=== PATIENT | female | born 1955 | race Caucasian/White ===

== ENCOUNTER 2016-10-30 07:37 | Emergency (ER) | payer OTHER ==
[~2016-10-30] VITALS: Ht 157.5 cm; Wt 93.0 kg
[~2016-10-30 07:37] MED LIST: CLX40 PO; IBUP-1050 PO; POTA1080 PO
[2016-10-30 07:39] VITALS: BP 139/73; PULSE 97; TEMP 37; O2SAT 94; Ht 157.5 cm; Wt 93.0 kg
[2016-10-30] MEDS ORDERED: PROPARACAINE HCL 0.5% OP SOLN 15 ML BTL ONE (07:45)
[2016-10-30] MEDS ORDERED: PRT/40 PO (07:47)
[2016-10-30] MEDS ORDERED: CITA40TA4 PO (07:47)
[2016-10-30] MEDS ORDERED: POTA1080 PO (07:47)
--- NOTE | 2016-10-30 17:01 | EMERGENCY ROOM VISIT NOTE ---
ED Visit Note First contact with patient: 07:44 Chief Complaint: Right eye pain. History of Present Illness: Ms. Barnes is a 60-year-old white female who ambulates into the ED complaining of right eye pain. 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 She reports immediately after the injury she did flush it at denies station. Currently she is complaining of a mild scratchiness sensation to the right eye. Her discomfort is nonradiating. She does not rate her discomfort. She has not identified any aggravating or alleviating factors related to her scratchiness sensation. He has not taken any medications for her discomfort prior to arrival at the hospital. She denies any associated visual changes, light sensitivity, tearing. Review of Systems: As noted above in history of present illness. Past Medical History: Kidney stones, status post stone removal. Current Medications: Potassium citrate, Pantoprazole, citalopram. Allergies to Medications: Amoxicillin. Social History: Patient is currently employed; she feels safe in her home environment; she admits to tobacco use and denies alcohol use. Tetanus Immunization Status: Patient reports up-to-date. Physical Examination: Vital Signs: Date Time Temp Pulse Resp B/P Pulse Ox O2 Delivery O2 Flow Rate FiO2 10/30/16 07:39 37.0 97 16 139/73 94 Room Air GENERAL: 60-year-old female in no acute distress, nontoxic-appearing, afebrile and hemodynamically stable. NEUROLOGICAL: Awake, alert and oriented to person, place and time. Answering questions appropriately and following commands. SKIN: Warm, dry and pink. No soft tissue eruptions or trauma noted. HEENT: Atraumatic and normocephalic. EYES: PERRL. Sclera white and conjunctiva pink. No foreign bodies noted under the eyelids are embedded in the cornea. Anterior chamber is clear. No light sensitivity. No tearing. Anterior chamber is clear. On slit lamp examination with staining shows no uptake of the dye. Visual Acuity: Right 20/20, Left 20/ 25. ED Course: Patient is assessed as noted above. Alcaine was used to anesthetize the eye for examination. Patient was educated about tonight's findings and instructed on her treatment plan; she verbalizes understanding and agreement with this plan. Clinical Impression: Foreign body sensations to the right eye. Work related injury. Disposition: Patient discharged back to work; prior to departure she was reassessed and subjectively reported she was pain/symptom-free. Plan: Patient was encouraged to alternate 600 mg of ibuprofen and 650 mg of acetaminophen as needed for pain every 6 hours or every 3 hours. Patient was encouraged to follow-up with employee health or return to the ED for uncontrolled pain, visual changes or any new/concerning symptoms.
== END 2016-10-30 08:06 | disposition home or self-care (01) ==
LOC: C.EDB 07:39 → C.EDA 08:06
DX: H57.11 Ocular pain, right eye (principal); Z79.899 Other long term (current) drug therapy

== ENCOUNTER 2016-12-14 05:39 | Emergency (ER) | payer OTHER ==
[~2016-12-14 05:39] MED LIST changes: +CITA40TA4 PO; -CLX40 PO; -IBUP-1050 PO; +PANT40TA2 PO
[2016-12-14 05:41] VITALS: TEMP 36.4; Ht 157.5 cm
[2016-12-14] MEDS ORDERED: CYM/30 PO (05:57)
[2016-12-14] MEDS ORDERED: NAPR-1169 PO (05:58)
--- NOTE | 2016-12-14 07:05 | EMERGENCY ROOM VISIT NOTE ---
ED Visit Note First contact with patient: 05:45 Chief Complaint: Pain in LEFT Leg History of Present Illness: Patient is a 61-year-old female who presents to the emergency Department by private vehicle for evaluation of pain to her LEFT leg. She reports that she has been having pain to the posterior aspect of the LEFT thigh. The past 1.5 weeks. She did see her primary care provider who diagnosed her with muscular pain. She was placed on naproxen. She was doing well and yesterday reports that she had minimal discomfort. Today, she woke with pain to the posterior aspect of the thigh again. While getting into her car this morning she twisted and felt worsening pain to the posterior aspect of the knee and lower thigh. She denies any falls or trauma to the. She denies any numbness or tingling into the distal extremity. She is had no worsening low back pain or loss of control bowel/bladder or saddle anesthesia. The patient rates her current discomfort as a 3/10. She reports increasing pain with ambulation. She also complains of some stability issues. Patient denies any abdominal pain, hip pain, ankle pain, or foot pain. Patient denies a history of blood clots or bleeding disorders. There is been no recent long distance travel. She does smoke daily. Medications: Reviewed and discussed with the patient. Allergies: Amoxicillin PMH: No pertinent past medical history. SHx: Patient is a 61-year-old female who lives locally. ROS: All pertinent positive and negative review of systems are appropriately documented in the History of Present Illness. Physical Exam: VITAL SIGNS - Vital signs and nursing notes were reviewed. GENERAL - 61-year-old female appearing her stated age and in noticeable discomfort throughout the exam. MUSCULOSKELETAL - LEFT knee without erythema, edema, and ecchymosis. Moderate tenderness to palpation appreciated over the posterior aspect of the LEFT knee and lower thigh. +455 strength appreciated LEFT versus right secondary to patient discomfort. No posterior sag sign. RANGE OF MOTION: Greater than 110 Flexion with 0 Extension. PATELLAR APPREHENSION TEST: Unremarkable. VARUS/VALGUS STRESS: Unremarkable. ANTERIOR/POSTERIOR DRAWER TEST: Without guarding. Strong endpoint. Baldemar TEST: No catching, popping, or snapping. NEUROLOGIC/VASCULAR - Neurovascularly intact distally with +3/5 dorsalis pedis pulses palpated bilaterally. Normal sensation to light and sharp touch appreciated distally. IMAGING: Venous Doppler left leg LEFT VENOUS DOPP LOWER EXT UNILAT CLINICAL HISTORY: popliteal/thigh pain TECHNIQUE: Venous Doppler COMPARISON STUDY: None FINDINGS: Normal study IMPRESSION: Normal study LEFT KNEE 3 VIEWS CLINICAL HISTORY: Left posterior knee pain. FINDINGS: AP, crosstable lateral, and sunrise views of the left knee are compared to study dated 09/12/2006. The skeletal structures are well mineralized. No fracture is seen. There is mild degenerative narrowing at the patellofemoral articulation. There are small marginal osteophytes. No joint effusion is identified. The overlying soft tissues are within normal limits. IMPRESSION: Mild arthritic change as above. No acute bony abnormality is seen in the left knee. ED Course: Patient was seen and evaluated by myself. Patient declines anything narcotic for pain in the emergency department. X-ray of the affected knee and ultrasound of the LEFT lower extremity were obtained. Imaging results above. Imaging results were reviewed with the patient who acknowledges understanding. Patient was provided a knee brace for comfort. She declines crutches or walker. She'll follow-up with orthopedic surgery from today's visit. She will return for any changing or worsening symptoms. Patient discharged home in good condition. In the evaluation and treatment of this patient, the following differential diagnoses were considered: Patellar Fracture, Tibial Plateau Fracture, Distal Femur Fracture, ACL Injury, PCL Injury, Collateral Ligament Injury, Pes Anserine Bursitis, Maisonneuve Fracture. Impression: LEFT Knee Sprain/Strain Discharge Instructions: You have been treated in the Emergency Department for Knee Sprain/Strain. You have been prescribed [place] to be used for pain control. This is a narcotic medication. You cannot drive or consume alcohol while on this medicine. This medicine should only be used for pain that cannot be controlled with over-the- counter pain medicines. For pain control, you can use the following fbmj-qmi-iqjljnf medicines (if >12 yo): - Regular strength (325mg/tab) Tylenol (acetaminophen) 2 tabs every 4-6 hours as needed. Do not exceed 12 tablets in a 24 hour period. Avoid taking more than 4 grams (4000 mg) of Tylenol per day. This includes any other sources of acetaminophen you may take on a regular basis. - Regular strength (200 mg/tab) Advil (ibuprofen) 1-2 tabs every 4-6 hours as needed. Do not exceed a dose of 3200 mg per day. If this is a recent injury (<24 hrs), ice can be applied to the area of pain for the first 3 days to help decrease pain and inflammation. Ice massages can be performed by freezing water in a paper cup, peeling back the cup to expose the ice and then massaging over the affected area. You have been provided the number for an Orthopaedic Surgeon. You should call this number as soon as possible to establish a follow-up visit from today's Emergency Department visit. Keep the knee brace in place until cleared by Orthopedics. Return to the Emergency Department if your current symptoms worsen despite treatment course outlined above. Current/Historical Medications Scheduled Duloxetine HCl (Cymbalta), 30 MG PO DAILY Naproxen (Naprosyn), 500 MG PO BID Pantoprazole (Pantoprazole Sodium), 40 MG PO DAILY Potassium Citrate (Alkalinizer (Potassium Citrate ER), 1,080 MG PO BID Scheduled PRN Hydrocodone/Acetaminophen 5MG/325MG ([place] 5MG/325MG), 1-2 TABLET PO Q4H PRN for Pain Allergies Coded Allergies: Amoxicillin (Verified Allergy, Unknown, vomiting, 12/14/16) Vital Signs Date Time Temp Pulse Resp B/P Pulse Ox O2 Delivery O2 Flow Rate FiO2 12/14/16 07:53 91 18 172/89 94 Room Air 12/14/16 05:41 36.4 91 18 155/79 98 Room Air Departure Information Impression Primary Impression: Knee sprain Dispostion Home / Self-Care Condition GOOD Prescriptions Hydrocodone/Acetaminophen 5MG/325MG (Gast[place] 5MG/325MG) Tab 1-2 TABLET PO Q4H Y for Pain, #14 TAB For Initial Treatment Prov: Ozzy Kamara PA-C 12/14/16 Referrals Clare Sequeira D.OFelton (PCP) Joey Leger MD Patient Instructions ED Sprain Knee, My [facility] Additional Instructions You have been treated in the Emergency Department for Knee Sprain/Strain. You have been prescribed G[place] to be used for pain control. This is a narcotic medication. You cannot drive or consume alcohol while on this medicine. This medicine should only be used for pain that cannot be controlled with over-the- counter pain medicines. For pain control, you can use the following yaag-aqf-dnggjse medicines (if >12 yo): - Regular strength (325mg/tab) Tylenol (acetaminophen) 2 tabs every 4-6 hours as needed. Do not exceed 12 tablets in a 24 hour period. Avoid taking more than 4 grams (4000 mg) of Tylenol per day. This includes any other sources of acetaminophen you may take on a regular basis. - Regular strength (200 mg/tab) Advil (ibuprofen) 1-2 tabs every 4-6 hours as needed. Do not exceed a dose of 3200 mg per day. If this is a recent injury (<24 hrs), ice can be applied to the area of pain for the first 3 days to help decrease pain and inflammation. Ice massages can be performed by freezing water in a paper cup, peeling back the cup to expose the ice and then massaging over the affected area. You have been provided the number for an Orthopaedic Surgeon. You should call this number as soon as possible to establish a follow-up visit from today's Emergency Department visit. Keep the knee brace in place until cleared by Orthopedics. Return to the Emergency Department if your current symptoms worsen despite treatment course outlined above. Problem Qualifiers Primary Impression: Knee sprain Encounter type: initial encounter Involved ligament of knee: unspecified ligament Laterality: left Qualified Codes: S83.92XA - Sprain of unspecified site of left knee, initial encounter
--- NOTE | 2016-12-14 07:30 | DIAGNOSTIC IMAGING REPORT ---
Venous Doppler left leg LEFT VENOUS DOPP LOWER EXT UNILAT CLINICAL HISTORY: popliteal/thigh pain TECHNIQUE: Venous Doppler COMPARISON STUDY: None FINDINGS: Normal study IMPRESSION: Normal study Electronically signed by: Kai Keller M.D. 12/14/2016 7:28 AM Dictated Date/Time: 12/14/2016 7:27 AM
[2016-12-14 07:53] VITALS: BP 172/89; PULSE 91; O2SAT 94
--- NOTE | 2016-12-14 07:54 | DIAGNOSTIC IMAGING REPORT ---
LEFT KNEE 3 VIEWS CLINICAL HISTORY: Left posterior knee pain. FINDINGS: AP, crosstable lateral, and sunrise views of the left knee are compared to study dated 09/12/2006. The skeletal structures are well mineralized. No fracture is seen. There is mild degenerative narrowing at the patellofemoral articulation. There are small marginal osteophytes. No joint effusion is identified. The overlying soft tissues are within normal limits. IMPRESSION: Mild arthritic change as above. No acute bony abnormality is seen in the left knee. Electronically signed by: Masood Kirk M.D. 12/14/2016 7:51 AM Dictated Date/Time: 12/14/2016 7:50 AM
[2016-12-14] MEDS ORDERED: HYDR-5688 PO (07:55)
== END 2016-12-14 08:21 | disposition home or self-care (01) ==
LOC: C.EDB 05:39
DX: S83.92XA Sprain of unspecified site of left knee, initial encounter (principal); X58.XXXA Exposure to other specified factors, initial encounter; Z79.899 Other long term (current) drug therapy; Z88.1 Allergy status to other antibiotic agents

== ENCOUNTER 2017-03-02 12:40 | Emergency (ER) | payer OTHER ==
[~2017-03-02] VITALS: Ht 157.5 cm; Wt 92.8 kg
[~2017-03-02 12:40] MED LIST changes: -CITA40TA4 PO; +CYM/30 PO; +HYDR-5688 PO; +NAPR-1169 PO; -PANT40TA2 PO; +PRT/40 PO
[2017-03-02 12:48] VITALS: TEMP 36.6; Ht 157.5 cm; Wt 92.8 kg
[2017-03-02 13:38] LABS: PARTIAL THROMBOPLASTIN RATIO 1.1; PROTHROMBIN TIME (PATIENT) 10.3 SECONDS (9.0-12.0)
--- NOTE | 2017-03-02 14:05 | DIAGNOSTIC IMAGING REPORT ---
ULTRASOUND LEFT VENOUS DOPP LOWER EXT UNILAT CLINICAL HISTORY: Left leg swelling COMPARISON STUDY: 12/14/2016 FINDINGS: Real-time and color flow Doppler imaging were performed. Flow was seen within the femoral, popliteal and calf veins with no intraluminal thrombus demonstrated. The saphenous vein is patent. IMPRESSION: No evidence of left lower extremity DVT. Electronically signed by: Devin Adamson M.D. 03/02/2017 2:04 PM Dictated Date/Time: 03/02/2017 2:03 PM
--- NOTE | 2017-03-02 14:47 | DIAGNOSTIC IMAGING REPORT ---
CHEST 2 VIEWS ROUTINE HISTORY:61 yearsFemaleperipheral edema COMPARISON: CTA of the chest 03/15/2014, chest radiograph 03/14/2014. TECHNIQUE: Frontal and lateral views of the chest. FINDINGS: Cardiomediastinal and hilar silhouettes are within normal limits. There is atherosclerosis of the aorta. No pneumothorax, pleural effusion, focal airspace consolidation or overt pulmonary edema. Subcortical cystic changes are seen within the left humeral head. Bones appear to be grossly intact. IMPRESSION: No acute cardiopulmonary process. No overt pulmonary edema. The above report was generated using voice recognition software. It may contain grammatical, syntax or spelling errors. Electronically signed by: Daren Gonzalez 03/02/2017 2:46 PM Dictated Date/Time: 03/02/2017 2:44 PM
--- NOTE | 2017-03-02 14:57 | EMERGENCY ROOM VISIT NOTE ---
History First contact with patient: 12:56 Chief Complaint: SWELLING TO EXTREMITY Stated Complaint: SWELLING IN LEFT ANKLE History of Present Illness The patient is a 61 year old female who presents to the Emergency Room with complaints of left lower leg swelling. The patient states on Sunday when she came home from work she noticed that her left ankle was swollen. Since that time she has noticed swelling in the entire left lower leg. She does admit that she is wearing new socks which are anklets and are very constricting. The patient has not noticed any swelling of the right lower leg. The patient went to urgent care today and they told her to come to the emergency room to evaluate for a blood clot. The patient denies any history of blood clots or any family history of clotting disorders. The patient denies any recent travel. Patient does admit to tobacco use. The patient denies hormone use. The patient denies any chest pain or shortness of breath. Review of Systems 10 system review was performed and was negative unless stated otherwise history of present illness. Social History Smoking Status: Current Every Day Smoker Alcohol Use: none Drug Use: none Marital Status: single Housing Status: lives alone Occupation Status: employed Current/Historical Medications Scheduled Duloxetine HCl (Cymbalta), 30 MG PO HS Naproxen (Naprosyn), 500 MG PO BID Pantoprazole (Pantoprazole Sodium), 40 MG PO QAM Potassium Citrate (Alkalinizer (Potassium Citrate ER), 1,080 MG PO BID Scheduled PRN Hydrocodone/Acetaminophen 5MG/325MG ([place] 5MG/325MG), 1-2 TABLET PO Q4H PRN for Pain Allergies Coded Allergies: Amoxicillin (Verified Allergy, Unknown, vomiting, 03/02/17) Physical Exam Vital Signs Date Time Temp Pulse Resp B/P (MAP) Pulse Ox O2 Delivery O2 Flow Rate FiO2 03/02/17 14:33 87 20 176/84 98 186/85 03/02/17 12:48 36.6 98 16 167/94 96 Room Air Physical Exam GENERAL: 61-year-old white female appears in no acute distress. MENTAL Status: Alert and oriented 3. NECK: Supple, no lymphadenopathy noted. No carotid bruits noted. LUNGS: Clear auscultation without wheezes rales or rhonchi. CARDIAC: Regular rate and rhythm without murmur. Pulses is full and equal throughout. LOWER EXTREMITIES: Left lower extremity with 2+ pitting edema just above the ankle to mid calf. No erythema. Left foot without any pitting edema. Right lower extremity with 1+ pitting edema from the ankle to mid calf. Negative Homans bilaterally. Medical Decision & Procedures ER Provider Diagnostic Interpretation: ULTRASOUND LEFT VENOUS DOPP LOWER EXT UNILAT CLINICAL HISTORY: Left leg swelling COMPARISON STUDY: 12/14/2016 FINDINGS: Real-time and color flow Doppler imaging were performed. Flow was seen within the femoral, popliteal and calf veins with no intraluminal thrombus demonstrated. The saphenous vein is patent. IMPRESSION: No evidence of left lower extremity DVT. Electronically signed by: Devin Adamson M.D. 03/02/2017 2:04 PM Dictated Date/Time: 03/02/2017 2:03 PM CHEST 2 VIEWS ROUTINE HISTORY:61 yearsFemaleperipheral edema COMPARISON: CTA of the chest 03/15/2014, chest radiograph 03/14/2014. TECHNIQUE: Frontal and lateral views of the chest. FINDINGS: Cardiomediastinal and hilar silhouettes are within normal limits. There is atherosclerosis of the aorta. No pneumothorax, pleural effusion, focal airspace consolidation or overt pulmonary edema. Subcortical cystic changes are seen within the left humeral head. Bones appear to be grossly intact. IMPRESSION: No acute cardiopulmonary process. No overt pulmonary edema. The above report was generated using voice recognition software. It may contain grammatical, syntax or spelling errors. Electronically signed by: Daren Gonzalez Laboratory Results Test 03/02/17 13:16 Prothrombin Time 10.3 SECONDS (9.0-12.0) Prothromb Time International Ratio 1.0 (0.9-1.1) Activated Partial Thromboplast Time 29.4 SECONDS (21.0-31.0) Partial Thromboplastin Ratio 1.1 ED Course The patient was evaluated. Coags were normal. Venous Doppler of the left lower extremity revealed no evidence of DVT by radiologist's interpretation. Chest x-ray per my interpretation and radiologists interpretation revealed no acute infiltrate, congestive heart failure or pulmonary edema. The patient was informed of all findings. The patient was discharged home in stable condition. Medical Decision Differential diagnosis include congestive heart failure, peripheral edema, DVT, superficial phlebitis, cellulitis Impression Primary Impression: Peripheral edema Departure Information Dispostion Home / Self-Care Condition GOOD Referrals Newhouser, Clare M., D.O. (PCP) Forms HOME CARE DOCUMENTATION FORM, IMPORTANT VISIT INFORMATION, WORK / SCHOOL INSTRUCTIONS Patient Instructions ED Leg Swelling Bilateral, My [facility] Additional Instructions Keep legs elevated whenever possible. Off work for 2 days. Limit salt intake. Follow-up with your family doctor early next week for reevaluation and possible diuretic therapy. Work Instructions Return To Work: 3 days
[2017-03-02 15:11] VITALS: BP 171/81; PULSE 90; O2SAT 94
== END 2017-03-02 15:13 | disposition home or self-care (01) ==
LOC: C.EDB 12:41 → C.EDD 15:13
DX: R60.0 Localized edema (principal); F17.210 Nicotine dependence, cigarettes, uncomplicated; Z79.899 Other long term (current) drug therapy

== ENCOUNTER → 2017-09-20 | Outpatient (CLI) | payer OTHER ==
[~2017-09-20] MED LIST changes: -HYDR-5688 PO; +PANT40TA2 PO; -PRT/40 PO
== END | disposition home or self-care (01) ==
LOC: C.RDSM 10:15
PROVIDERS: ATTEND Family Medicine Sports Medicine
DX: M79.606 Pain in leg, unspecified (principal)

== ENCOUNTER → 2017-10-12 | Outpatient (CLI) | payer OTHER ==
--- NOTE | 2017-10-12 15:48 | DIAGNOSTIC IMAGING REPORT ---
R KNEE 4 OR MORE CLINICAL HISTORY: 61 years-old Female presenting with CHRONIC RIGHT KNEE PAIN. TECHNIQUE: Bilateral frontal, sunrise, tunnel, and lateral views of the knees were obtained. COMPARISON: Left knee radiographs from 12/14/2016. FINDINGS: Right knee: Joint space preserved. No patellar subluxation. No abnormality of the intercondylar region. No advanced degenerative change apart from minimal osteophytosis at the patellofemoral compartment. Trace knee joint effusion. No acute fracture or malalignment. Left knee: Joint space preserved. No patellar subluxation. No abnormality of the intercondylar region. No advanced degenerative change apart from minimal osteophytosis at the patellofemoral compartment. Trace knee joint effusion. No acute fracture or malalignment. IMPRESSION: Mild bilateral degenerative changes in the patellofemoral compartments. Electronically signed by: Saúl Fox M.D. 10/12/2017 3:46 PM Dictated Date/Time: 10/12/2017 3:44 PM
== END | disposition home or self-care (01) ==
LOC: C.RDSM 15:15
PROVIDERS: ATTEND Physician Assistant
DX: M25.561 Pain in right knee (principal)

== ENCOUNTER 2024-07-20 13:28 | Inpatient (IN) ==
[~2024-07-20 13:28] MED LIST changes: -CYM/30 PO; -NAPR-1169 PO; -PANT40TA2 PO; -POTA1080 PO; +SODIUM BICARBONATE 8.4% 150 MEQ in DEXTROSE 5% 1,000 ML IV SCH
[2024-07-20] MEDS: ONDANSETRON INJ 2 MG/ML 2 ML VIAL ONE (13:45)
[2024-07-20] MEDS ORDERED: SODIUM CHLORIDE 0.9% 100 ML IV PRN ×2 (13:59→19:13)
[2024-07-20] MEDS ORDERED: SODIUM CHLORIDE 0.9% 50 ML IV PRN ×2 (13:59→19:13)
[2024-07-20] MEDS: SODIUM CHLORIDE 0.9% 1,000 ML IV ONE ×4 (14:00→19:34)
[2024-07-20 14:02] LABS: Basophils # (auto) 0.03 K/uL (0.00-0.20); Basophils % (auto) 0.2 %; Hematocrit (blood only) 22.5 % (37.0-47.0); Hemoglobin 7.7 g/dl (12.0-16.0); Immature Granulocytes % (auto) 0.7 %; Lymphocytes # (auto) 1.18 K/uL (1.20-3.40); Lymphocytes % (auto) 8.4 %; Mean Corpuscular Hemoglobin 29.6 pg (25.0-34.0); Mean Corpuscular Hgb Conc 34.2 g/dL (32.0-36.0); Mean Corpuscular Volume 86.5 fL (80.0-100.0); Mean Platelet Volume 11.8 fL (9.4-12.4); Monocytes # (auto) 0.47 K/uL (0.11-0.59); Monocytes % (auto) 3.3 %; Neutrophils # (auto) 12.35 K/uL (1.40-6.50); Neutrophils % (auto) 87.4 %; Nucleated RBC # (auto) 0.03 K/uL (0.00-0.12); Nucleated RBC % (auto) 0.2 %; Platelet Count 296 K/uL (130-400); RDW Coefficient of Variation 14.6 % (11.5-14.5); RDW Standard Deviation 45.9 fL (36.4-46.3); White Blood Count 14.13 K/ul (4.8-10.8)
--- NOTE | 2024-07-20 14:05 | XRay Report ---
EXAM: Radiograph of the Chest 1 View INDICATION: History GI bleeding. TECHNIQUE: Frontal view of the chest. COMPARISON: 06/19/2024 FINDINGS: Lungs and pleural spaces: No consolidation or pulmonary edema. No pleural effusion or pneumothorax. Heart: Shape and configuration within normal limits allowing for technique. Mediastinum: Normal contour. Bones/joints: Degenerative changes noted throughout the spine. No acute osseous abnormality seen. Soft tissues: No abnormality noted. No radiopaque foreign body noted. Vasculature: Stable mildly calcified ectatic aorta. Upper abdomen: No free intraperitoneal air noted subjacent to either diaphragm. IMPRESSION: No acute cardiopulmonary disease. ACT 112: Negative or not required by law. Electronically signed by Radha Osullivan 07-20-2024 2:04 PM
[2024-07-20 14:20] LABS: Echinocytes 1+; Polychromasia 1+
[2024-07-20 14:31] LABS: INR 1.1 (0.9-1.1); Partial Thromboplastin Ratio 0.9; Partial Thromboplastin Time 23 Seconds (21-31); Prothrombin Time 11.4 Seconds (9.0-12.0)
[2024-07-20] MEDS: PANTOprazole 80 MG in DEXTROSE 5% 100 ML IV ONE (14:32)
[2024-07-20 14:33] LABS: Albumin Globulin Ratio 1.1 (0.9-2); Albumin Level 3.6 gm/dl (3.4-5.0); BUN Creatinine Ratio 10.1 (10-20); Bilirubin,Total 0.3 mg/dl (0.2-1.0); Calcium 9.8 mg/dl (8.6-10.3); Creatinine Clr Calc Pharmacy 2.8 ml/min; Globulin 3.4 gm/dl (2.5-4.0); Troponin I High Sensitivity 338.1 pg/ml (0-14)
[2024-07-20] MEDS: FAMOTIDINE 20MG IV PUSH 20 MG/5 ML SYR IV STA (14:35)
[2024-07-20] MEDS: PANTOprazole 40 MG in DEXTROSE 5% MINI-B 100 ML IV SCH (15:04)
--- NOTE | 2024-07-20 15:04 | CT Scan Report ---
EXAM: CT Head Without Intravenous Contrast INDICATION: Acute renal failure. GI bleeding. Confusion. TECHNIQUE: Axial computed tomography images of the head/brain without intravenous contrast. Sagittal and/or coronal reformats are provided. Sagittal and coronal reformatted images were created and reviewed. This CT exam was performed using one or more of the following dose reduction techniques: automated exposure control, adjustment of the mA and/or kV according to patient size, and/or use of iterative reconstruction technique. COMPARISON: 06/19/2024 FINDINGS: Limitations: None. Brain and extra-axial spaces: There is age appropriate cortical atrophy and chronic ischemic periventricular white matter hypodensity. No acute infarct, hemorrhage or mass noted. Bones/joints: No acute changes. Soft tissues: No significant abnormality noted. Vasculature: No acute abnormality noted. Sinuses: No layering fluid in the visualized portions of the paranasal sinuses. Mastoid air cells: No mastoid effusion. Orbits: No significant abnormality noted. IMPRESSION: Cerebral atrophy. No acute changes. ACT 112: Negative or not required by law. Electronically signed by Radha Osullivan 07-20-2024 3:03 PM
--- NOTE | 2024-07-20 15:08 | CT Scan Report ---
EXAM: CT Abdomen and Pelvis Without Intravenous Contrast INDICATION: GI bleeding. Acute renal failure. TECHNIQUE: Axial computed tomography images of the abdomen and pelvis without intravenous contrast. Sagittal and coronal reformatted images were created and reviewed. This CT exam was performed using one or more of the following dose reduction techniques: automated exposure control, adjustment of the mA and/or kV according to patient size, and/or use of iterative reconstruction technique. COMPARISON: No relevant prior studies available. FINDINGS: Limitations: Streak artifact from the patient's arms noted over the renal shadows and portions of the stomach. Lung bases: No abnormality noted. Pleural space: No visualized pleural effusion or pneumothorax. Heart: There is dense mitral annular calcification. Mediastinum: No abnormality noted. ABDOMEN: Liver: Lack of intravenous contrast limits detection of some masses. No abnormality noted. Gallbladder and bile ducts: No calcified stones or surrounding fluid. Pancreas: No pancreatic mass, calcification, inflammation or ductal dilation noted. Spleen: No significant abnormality noted. Adrenals: No significant abnormality noted. Kidneys and ureters: There are multiple nonobstructing stones in each kidney measuring from punctate in size to up to 5 mm. No hydronephrosis or ureteral stone. Exophytic 5 mm dense nodule from the medial lower pole left kidney. Stomach and bowel: The stomach contains layering fluid. Artifact limits assessment of the posterior wall. No gross abnormality. Scattered stool throughout the colon without obstruction, inflammation or thickening. PELVIS: Appendix: Well seen and appears normal. Bladder: Collapsed bladder contains a catheter. No gross acute abnormality. Reproductive: 1 cm calcified uterine fibroid noted. ABDOMEN and PELVIS: Intraperitoneal space: No free air. No significant fluid collection. Bones/joints: Degenerative changes noted in the scoliotic spine. No acute osseous abnormality noted. Soft tissues: No significant abnormality noted. Vasculature: Atherosclerotic calcification of the aorta and branches. No aneurysm. Lymph nodes: No pathologically enlarged lymph nodes. IMPRESSION: 1. Allowing for artifact, no intestinal obstruction or inflammatory process noted. 2. Bilateral nonobstructing kidney stones. ACT 112: Negative or not required by law. Electronically signed by Radha Osullivan 07-20-2024 3:08 PM
--- NOTE | 2024-07-20 15:12 | Emergency Department Note ---
Impression & Plan Acute GI bleeding, Acute renal failure, Acute hypotension, Nausea & vomiting ED Provider Note NAME: ROXANA AGARWAL AGE: 68 SEX: Female INFORMANT: Patient and family, EMS ED PROVIDER(S): Jose Foster MD CHIEF COMPLAINT: GI bleed PLAN: Disposition: Admitted Outpatient prescription management: none Referral: None MEDICAL DECISION MAKING: Patient presented after I did give prehospital medical command for fluid resuscitation due to her hypotension. She was hypotensive on arrival. Hemoccult positive on rectal examination. Patient was mentating well. O2 saturations were adequate. Additional fluid resuscitation was done. Given the melanotic stool and Hemoccult positive rectal examination on i-STAT was performed and the patient was found to have a creatinine greater than 20 and hemoglobin of 7.1. Blood transfusion was ordered and the patient consented. Patient's blood pressure was slightly improved. She did increase into the 110's range. She was tachycardic. Patient was frequently reassessed and continuously monitored. A Ornelas catheter was placed. Patient did make about 40 mL of urine after the fluids. Blood was started. Patient CBC did show a mild leukocytosis. Hemoglobin was confirmed at 7 7. Patient also had elevated troponin. ECG was abnormal but patient had no chest pain. Given the acute bleeding and suspected dehydration blood was continued. Protonix and Pepcid was ordered. Patient had [address] imaging of the head and abdomen/pelvis did not reveal any acute findings. Admission was deemed appropriate. [facility] was discussed. Patient was evaluated in the ER by Dr. Salvador. Discussion with nephrology was requested. I did consult with Dr. Taylor. He recommended a bicarb drip and additional fluids. A repeat BMP was performed. Gastroenterology was also consulted. Patient was evaluated in the ER by Dr. Caicedo. Intensive care medicine was also consulted. Patient was evaluated in the ER by Dr. Luna. Patient had a slight drop in her blood pressure and he did order Levophed but this was not given as the patient's blood pressure did improve. Patient had some additional urine output. Initial concerns were for the GI bleed and her elevated BUN and acute renal failure. We discussed the possibility of transfer and critical care was waiting for repeat BUN/creatinine after fluid resuscitation. Dr. Taylor did recommend an additional liter bolus as well as desmopressin. I did order the additional fluid and internal medicine will do the desmopressin. Blood cultures and Rocephin were ordered as well. Repeat creatinine was improved at 15 and BUN did decrease to 162. Dr. Luna was comfortable with her going to the ICU for continued resuscitation. I refer you to the EMR for further details. Care/management discussed with: manager building. Internal medicine, critical care, gastroenterology, nephrology, lab Level of care consideration(s): After review of the information above and other included data, I feel the patient requires escalation of care to admission Triage Nursing notes: reviewed and agree them. Vital Signs: reviewed and remarkable for hypotension and tachycardia Additional History obtained from: patient sister did present to the emergency department and helped describe her decline over the recent weeks Chronic Medical/Social Conditions affecting care: CVA Prior/ Outside/ External records reviewed: Prior ED visit record reviewed from May 2024. Patient had stroke workup initiated however declined additional testing and left AMA. Differential Diagnosis: Diverticulosis, AVM, coagulopathy, colitis, inflammatory bowel disease, malignancy, Kamilah-Lou tear, esophagitis, peptic ulcer disease, variceal bleed, gastritis, dehydration, electrolyte abnormality, cardiac sources, as well as other pathologies. Diagnostics, independently interpreted by me: ECG: Twelve-lead ECG reveals a sinus tachycardia with premature supraventricular complexes at 110 bpm. Inferolateral T wave inversions. No ST elevation. Cardiac Monitoring:Cardiac monitoring ordered by me: The patient was placed on continuous cardiac monitoring and observed. It revealed a sinus tachycardia at 115 bpm. Medical decision rules: none Imaging studies: Chest x-ray. Findings: A chest x-ray was performed and revealed no pneumothorax, effusion, infiltrate, pulmonary edema, free air under the diaphragm, or wide mediastinum. Impression: No acute disease. Head CT: A noncontrast CT scan of the head was performed and was negative for tumor, fracture, intracranial hemorrhage, or other acute pathology. CT scan of the abdomen pelvis reveals no evidence of hydronephrosis. Nephrolithiasis noted. I refer you to the EMR for further details. HPI: 68 year old Female arrives for evaluation of GI bleed. Patient reports about 2 to 3 weeks of dark stool. She was recently started on Plavix after being diagnosed with a stroke on June 19. Patient was found to have this stroke on imaging in the emergency department and signed out AMA after admission was recommended. Patient did follow-up with her primary physician first week of June. She apparently had outpatient imaging performed which included a CTA as well as MRI. She was started on Plavix. Patient notes over the last week she has been having more issues with nausea, dark stool, occasional bloody stool, and abdominal cramping. Patient notes decreased p.o. intake over the last week but significantly so over the last few days. Family is present and states that they tried to take her to a follow-up visit this week for labs with primary care and she was too weak to get out of her sisters vehicle. Patient had increased weakness this morning and EMS was summoned. When they arrived her blood pressure was in the 80s. EMS did start a fluid bolus and supplemental oxygen. Patient's O2 saturation was adequate. She noted some improvement in her shortness of breath. Patient was still hypotensive on arrival. Pt denies LOC, headache, fevers, chills, diaphoresis, visual changes, neck pain, chest pain, current abdominal pain, back pain, urinary symptoms, numbness, rash, or other complaints. PAST MEDICAL HISTORY: See Below, CVA, hypertension PAST SURGICAL HISTORY: See Below, SOCIAL HISTORY: See Below, HOME MEDICATIONS: See Below ALLERGIES: See Below VITALS: See Below PHYSICAL EXAMINATION: GENERAL: Awake, lethargic, ill-appearing, in no distress HENT: Normocephalic, atraumatic. Oropharynx unremarkable. EYES: Pale conjunctiva. Sclera non-icteric. PERRLA NECK: Inspection normal. Non-tender. Supple. No nuchal rigidity. FROM. No masses. RESPIRATORY: Clear to auscultation. No wheezes. No rales. Normal respiratory effort. CARDIAC: Tachycardic rate. Normal rhythm. No murmurs. No rubs. Extremities warm and well perfused. Pulses equal. No JVD. GI: Soft, non-distended. No tenderness to palpation. No rebound or guarding. No masses. RECTAL: Gross blood as well as melanotic stool. Hemoccult positive.. MUSCULOSKELETAL: Atraumatic. Chest examination reveals no tenderness. The back is symmetrical on inspection without obvious abnormality. There is no CVA tenderness to palpation. No joint edema. LOWER EXTREMITIES: Calves are equal size bilaterally and non-tender. No edema. No discoloration. NEURO: Normal sensorium. No focal sensory or motor deficits noted. SKIN: No rash or jaundice noted. PROCEDURES: none CRITICAL CARE: I have personally spent 125 minutes of critical care time in the direct management of this patient. This includes bedside care, interpretation of diagnostic studies, and testing, discussion with consultants, patient, and family members, and other required patient management activities. These minutes are in excess of all separately billable procedures. OBSERVATION NOTE: none Past Med/Surg History Problem List (Updated 07/20/24 @ 17:18 by Chio Duran PA-C) High anion gap metabolic acidosis Metabolic encephalopathy Shock circulatory Encephalopathy acute Nausea & vomiting (Acute) Acute hypotension (Acute) Acute renal failure (Acute) Acute GI bleeding (Acute) Kidney stones Pleuritic pain (Acute) Side pain (Acute) Side pain (Acute) Medical History Degenerative disc disease Chronic back pain GERD (gastroesophageal reflux disease) Depression Cardiac murmur DOESNT FOLLOW CARDIOLOGY Hypertension Hyperlipidemia Surgical History History of lithotripsy Family History Mother Diabetes Father Lung cancer Social History Smoking Status: Former smoker Cigarettes Per Day: 1 PPD; Second Hand Exposure: Yes; Do You Dip or Chew Tobacco: No; Hx Alcohol Use: No Hx Substance Use: No Preferred Language: Zimbabwean Communication Ability: Effective Anaesthetic Technician Required: No Beliefs That Will Affect Care: None Current Living Situation: Alone Feels Safe at Home: Yes Assistive Devices: Glasses Allergies Allergies Allergy/AdvReac Type Severity Reaction Status Date / Time amoxicillin Allergy Unknown vomiting Verified 09/11/19 13:07 Home Meds Home Medications Medication Instructions Recorded Confirmed atorvastatin 40 mg tablet 80 mg PO PM 08/25/19 07/20/24 duloxetine 60 mg capsule,delayed 60 mg PO UD 08/25/19 07/20/24 release (Cymbalta) pantoprazole 40 mg tablet,delayed 40 mg PO PM 08/25/19 07/20/24 release allopurinol 100 mg tablet 100 mg PO DAILY 07/20/24 07/20/24 bupropion HCl 300 mg 24 hr tablet, 300 mg PO DAILY 07/20/24 07/20/24 extended release clopidogrel 75 mg tablet 75 mg PO DAILY 07/20/24 07/20/24 famotidine 20 mg tablet 20 mg PO DAILY 07/20/24 07/20/24 lisinopril 40 mg tablet 40 mg PO DAILY 07/20/24 07/20/24 ondansetron HCl 4 mg tablet 4 mg PO Q6H PRN n/v 07/20/24 07/20/24 potassium citrate 10 mEq (1,080 10 meq PO BID 07/20/24 07/20/24 mg) tablet,extended release Results & Data (ED) Vital Signs Vital Signs - 24 hr 07/20/24 13:33 07/20/24 13:36 07/20/24 13:36 Temperature 36.8 C Temperature Source Axillary Pulse Rate 113 H 113 H 117 H Pulse Rate [Apical] Pulse Rate from SpO2 Sensor Respiratory Rate 27 H 26 H 28 H Respiratory Effort / Characteristics Non-Labored Spontaneous Blood Pressure 83/62 L 83/62 L Blood Pressure [Left Arm] Blood Pressure Mean 66 69 Blood Pressure Mean [Left Arm] Blood Pressure Position Lying Pulse Oximetry 91 97 97 Oxygen Delivery Method Room Air Room Air Room Air Oxygen Flow Rate Sepsis Recent Fever Within 48 Hours No Sepsis New/Unexplained Change in Mental Status No Sepsis Action Taken by Nursing Physician Notified 07/20/24 13:36 07/20/24 13:57 07/20/24 14:15 Temperature 36.8 C Temperature Source Axillary Pulse Rate 111 H 112 H Pulse Rate [Apical] 114 H Pulse Rate from SpO2 Sensor 113 H 108 H Respiratory Rate 23 25 H 24 Respiratory Effort / Characteristics Non-Labored Spontaneous Blood Pressure 98/60 L 97/56 L Blood Pressure [Left Arm] 83/62 L Blood Pressure Mean 72 69 Blood Pressure Mean [Left Arm] 69 Blood Pressure Position Pulse Oximetry 96 99 97 Oxygen Delivery Method Room Air Room Air Room Air Oxygen Flow Rate Sepsis Recent Fever Within 48 Hours Sepsis New/Unexplained Change in Mental Status Sepsis Action Taken by Nursing 07/20/24 14:25 07/20/24 14:26 07/20/24 14:30 Temperature 33.2 C L Temperature Source Ornelas Cath ( Temp Sensing) Pulse Rate 108 H 113 H Pulse Rate [Apical] Pulse Rate from SpO2 Sensor Respiratory Rate 27 H Respiratory Effort / Characteristics Blood Pressure 97/56 L Blood Pressure [Left Arm] Blood Pressure Mean 69 Blood Pressure Mean [Left Arm] Blood Pressure Position Pulse Oximetry 94 Oxygen Delivery Method Room Air Oxygen Flow Rate Sepsis Recent Fever Within 48 Hours Sepsis New/Unexplained Change in Mental Status Sepsis Action Taken by Nursing 07/20/24 14:45 07/20/24 14:55 07/20/24 15:06 Temperature 35.9 C L Temperature Source Ornelas Cath ( Temp Sensing) Pulse Rate 113 H 112 H Pulse Rate [Apical] Pulse Rate from SpO2 Sensor Respiratory Rate 27 H 26 H Respiratory Effort / Characteristics Blood Pressure 85/51 L 87/49 L Blood Pressure [Left Arm] Blood Pressure Mean 62 55 Blood Pressure Mean [Left Arm] Blood Pressure Position Pulse Oximetry 94 95 Oxygen Delivery Method Room Air Room Air Oxygen Flow Rate Sepsis Recent Fever Within 48 Hours Sepsis New/Unexplained Change in Mental Status Sepsis Action Taken by Nursing 07/20/24 15:15 07/20/24 15:33 07/20/24 15:48 Temperature 35.8 C L 35.8 C L 35.9 C L Temperature Source Ornelas Cath ( Temp Sensing) Ornelas Cath ( Temp Sensing) Ornelas Cath ( Temp Sensing) Pulse Rate 112 H 115 H 115 H Pulse Rate [Apical] Pulse Rate from SpO2 Sensor Respiratory Rate 26 H 25 H 24 Respiratory Effort / Characteristics Blood Pressure 100/48 L 81/51 L 96/45 L Blood Pressure [Left Arm] Blood Pressure Mean 65 61 62 Blood Pressure Mean [Left Arm] Blood Pressure Position Lying Lying Lying Pulse Oximetry 99 98 99 Oxygen Delivery Method Oxygen Flow Rate Sepsis Recent Fever Within 48 Hours Sepsis New/Unexplained Change in Mental Status Sepsis Action Taken by Nursing 07/20/24 16:18 07/20/24 17:03 07/20/24 17:18 Temperature 36.1 C L 36.4 C L 37.0 C Temperature Source Ornelas Cath ( Temp Sensing) Ornelas Cath ( Temp Sensing) Temporal Artery Scan Pulse Rate 118 H 125 H Pulse Rate [Apical] 121 H Pulse Rate from SpO2 Sensor Respiratory Rate 27 H 26 H 29 H Respiratory Effort / Characteristics Blood Pressure 82/55 L 112/76 Blood Pressure [Left Arm] 89/56 L Blood Pressure Mean 64 88 Blood Pressure Mean [Left Arm] 67 Blood Pressure Position Lying Lying Pulse Oximetry 100 96 100 Oxygen Delivery Method Room Air Oxygen Flow Rate Sepsis Recent Fever Within 48 Hours Sepsis New/Unexplained Change in Mental Status Sepsis Action Taken by Nursing 07/20/24 17:51 07/20/24 18:16 07/20/24 18:31 Temperature 37.3 C 37.6 C H 37.6 C H Temperature Source Ornelas Cath ( Temp Sensing) Ornelas Cath ( Temp Sensing) Ornelas Cath ( Temp Sensing) Pulse Rate 124 H 122 H Pulse Rate [Apical] 121 H Pulse Rate from SpO2 Sensor Respiratory Rate 26 H 23 28 H Respiratory Effort / Characteristics Spontaneous Blood Pressure 106/50 L 101/68 Blood Pressure [Left Arm] 115/50 L Blood Pressure Mean 68 79 Blood Pressure Mean [Left Arm] 71 Blood Pressure Position Lying Lying Pulse Oximetry 100 100 100 Oxygen Delivery Method Room Air Oxygen Flow Rate 0 Sepsis Recent Fever Within 48 Hours Sepsis New/Unexplained Change in Mental Status Sepsis Action Taken by Nursing 07/20/24 18:31 Temperature 37.6 C H Temperature Source Ornelas Cath ( Temp Sensing) Pulse Rate 121 H Pulse Rate [Apical] Pulse Rate from SpO2 Sensor Respiratory Rate 28 H Respiratory Effort / Characteristics Blood Pressure 115/50 L Blood Pressure [Left Arm] Blood Pressure Mean 71 Blood Pressure Mean [Left Arm] Blood Pressure Position Pulse Oximetry 100 Oxygen Delivery Method Oxygen Flow Rate Sepsis Recent Fever Within 48 Hours Sepsis New/Unexplained Change in Mental Status Sepsis Action Taken by Nursing Laboratory Data 07/20/24 13:44 07/20/24 17:53 Lab Results 07/20/24 07/20/24 07/20/24 Range/Units 13:44 13:46 13:48 WBC 14.13 H (4.8-10.8) K/ul RBC 2.60 L (4.20-5.40) M/uL Hgb 7.7 L (12.0-16.0) g/dl POC Hgb (12.0-16.0) g/dl Hct 22.5 L (37.0-47.0) % POC Hct (37-47) % MCV 86.5 (80.0-100.0) fL MCH 29.6 (25.0-34.0) pg MCHC 34.2 (32.0-36.0) g/dL RDW Std Deviation 45.9 (36.4-46.3) fL RDW Coeff of Jolene 14.6 H (11.5-14.5) % Plt Count 296 (130-400) K/uL MPV 11.8 (9.4-12.4) fL Immature Gran % (Auto) 0.7 % Neut % (Auto) 87.4 % Lymph % (Auto) 8.4 % Clare % (Auto) 3.3 % Eos % (Auto) 0.0 % Baso % (Auto) 0.2 % Neut # (Auto) 12.35 H (1.40-6.50) K/uL Lymph # (Auto) 1.18 L (1.20-3.40) K/uL Clare # (Auto) 0.47 (0.11-0.59) K/uL Eos # (Auto) 0.00 (0.00-0.50) K/uL Baso # (Auto) 0.03 (0.00-0.20) K/uL Immature Gran # (Auto) 0.10 (0.01-0.20) K/uL Absolute Nucleated RBC 0.03 (0.00-0.12) K/uL Nucleated RBC % (auto) 0.2 % Polychromasia 1+ Echinocytes 1+ PT 11.4 (9.0-12.0) Seconds INR 1.1 (0.9-1.1) APTT 23 (21-31) Seconds PTT Ratio 0.9 Specimen Type POC pH (7.35-7.45) POC pCO2 (35-46) mmHg POC pO2 (80-95) mmHg POC HCO3 (19-24) nanda/L POC Base Excess (-9-1.8) nanda/L POC ABG O2 Sat (90-95) % POC Sodium (135-144) mmol/L Sodium 139 (136-145) mmol/L POC Potassium (3.3-5.0) mmol/L Potassium 5.0 (3.5-5.1) mmol/L POC Chloride (101-112) mmol/L Chloride 97 L (98-107) mmol/L Carbon Dioxide 12 L (21-32) mmol/L POC Total CO2 (24-31) mmol/L Anion Gap 30 H (3-11) POC Anion Gap (16-25) mmol/L POC BUN (7-18) mg/dl BUN 183 H (6-23) mg/dl Creatinine 18.17 H* (0.6-1.2) mg/dl POC Creatinine (0.6-1.3) mg/dl Est Cr Clr Drug Dosing 2.8 ml/min eGFR 1.88 BUN/Creatinine Ratio 10.1 (10-20) Glucose 126 H (70-99(Fasting)) mg/dl POC Glucose (other) (70-99) mg/dl Osmolality 346 H (280-300) mOsm/kg Lactate (0.4-2.0) mmol/L Calcium 9.8 (8.6-10.3) mg/dl POC Ioniz Calcium Tiara (1.12-1.32) mmol/l Total Bilirubin 0.3 (0.2-1.0) mg/dl AST 29 (13-39) U/L ALT 17 (7-52) U/L Alkaline Phosphatase 79 (34-104) U/L Troponin I High Sens 338.1 H* (0-14) pg/ml Total Protein 7.0 (6.0-8.3) gm/dl Albumin 3.6 (3.4-5.0) gm/dl Globulin 3.4 (2.5-4.0) gm/dl Albumin/Globulin Ratio 1.1 (0.9-2) Urine Color Urine Appearance (Clear) Urine pH (4.5-7.5) Ur Specific Wright (1.000-1.030) Urine Protein (Negative) Urine Glucose (UA) (Negative) Urine Ketones (Negative) Urine Blood (Negative) Urine Nitrite (Negative) Urine Bilirubin (Negative) Urine Urobilinogen (Negative) Ur Leukocyte Esterase (Negative) Urine WBC (Auto) (0-5) /hpf Urine RBC (Auto) (0-2) /hpf U Hyaline Cast (Auto) (0-2) /lpf U Epithel Cells (Auto) (0-2) /hpf Urine Bacteria (Auto) (None Seen) Hyaline Casts (None Presnt) /lpf Urine Osmolality (500-800) mOsm/kg Ur Random Creatinine mg/dl Ur Random Sodium mmol/L Ur Random Potassium mmol/L Ur Random Chloride mmol/L POC Stool Occult Blood (Negative) Salicylates (3.0-30) mg/dl Urine Opiates Screen (Neg) Ur Methadone, Qual (Neg) Urine Fentanyl Screen (Neg) Acetaminophen (10-30) ug/ml Urine Barbiturates (Neg) Ur Phencyclidine (PCP) (Neg) U Amphetamin/Meth Scrn (Neg) MDMA (Ecstasy) Screen (Neg) U Benzodiazepines Scrn (Neg) Ur Cocaine Metabolite (Neg) U Marijuana (THC) Screen (Neg) Ethyl Alcohol mg/dL (<10.0) mg/dl Blood Type A Negative Blood Type Recheck A Negative Antibody Screen NEGATIVE Crossmatch See Detail See Detail 07/20/24 07/20/24 07/20/24 Range/Units 13:49 14:26 14:56 WBC (4.8-10.8) K/ul RBC (4.20-5.40) M/uL Hgb (12.0-16.0) g/dl POC Hgb 7.1 L (12.0-16.0) g/dl Hct (37.0-47.0) % POC Hct 21 L (37-47) % MCV (80.0-100.0) fL MCH (25.0-34.0) pg MCHC (32.0-36.0) g/dL RDW Std Deviation (36.4-46.3) fL RDW Coeff of Jolene (11.5-14.5) % Plt Count (130-400) K/uL MPV (9.4-12.4) fL Immature Gran % (Auto) % Neut % (Auto) % Lymph % (Auto) % Clare % (Auto) % Eos % (Auto) % Baso % (Auto) % Neut # (Auto) (1.40-6.50) K/uL Lymph # (Auto) (1.20-3.40) K/uL Clare # (Auto) (0.11-0.59) K/uL Eos # (Auto) (0.00-0.50) K/uL Baso # (Auto) (0.00-0.20) K/uL Immature Gran # (Auto) (0.01-0.20) K/uL Absolute Nucleated RBC (0.00-0.12) K/uL Nucleated RBC % (auto) % Polychromasia Echinocytes PT (9.0-12.0) Seconds INR (0.9-1.1) APTT (21-31) Seconds PTT Ratio Specimen Type POC pH (7.35-7.45) POC pCO2 (35-46) mmHg POC pO2 (80-95) mmHg POC HCO3 (19-24) nanda/L POC Base Excess (-9-1.8) nanda/L POC ABG O2 Sat (90-95) % POC Sodium 135 (135-144) mmol/L Sodium (136-145) mmol/L POC Potassium 4.8 (3.3-5.0) mmol/L Potassium (3.5-5.1) mmol/L POC Chloride 103 (101-112) mmol/L Chloride (98-107) mmol/L Carbon Dioxide (21-32) mmol/L POC Total CO2 13 L (24-31) mmol/L Anion Gap (3-11) POC Anion Gap 25.0 (16-25) mmol/L POC BUN > 140 H* (7-18) mg/dl BUN (6-23) mg/dl Creatinine (0.6-1.2) mg/dl POC Creatinine > 20.0 H* (0.6-1.3) mg/dl Est Cr Clr Drug Dosing ml/min eGFR BUN/Creatinine Ratio (10-20) Glucose (70-99(Fasting)) mg/dl POC Glucose (other) 122 H (70-99) mg/dl Osmolality (280-300) mOsm/kg Lactate (0.4-2.0) mmol/L Calcium (8.6-10.3) mg/dl POC Ioniz Calcium Tiara 1.04 L (1.12-1.32) mmol/l Total Bilirubin (0.2-1.0) mg/dl AST (13-39) U/L ALT (7-52) U/L Alkaline Phosphatase (34-104) U/L Troponin I High Sens (0-14) pg/ml Total Protein (6.0-8.3) gm/dl Albumin (3.4-5.0) gm/dl Globulin (2.5-4.0) gm/dl Albumin/Globulin Ratio (0.9-2) Urine Color Yellow Urine Appearance Cloudy A (Clear) Urine pH 5.0 (4.5-7.5) Ur Specific Wright 1.016 (1.000-1.030) Urine Protein 2+ H (Negative) Urine Glucose (UA) Negative (Negative) Urine Ketones Trace H (Negative) Urine Blood 2+ H (Negative) Urine Nitrite Negative (Negative) Urine Bilirubin Negative (Negative) Urine Urobilinogen Negative (Negative) Ur Leukocyte Esterase 2+ H (Negative) Urine WBC (Auto) 11-20 H (0-5) /hpf Urine RBC (Auto) 11-20 H (0-2) /hpf U Hyaline Cast (Auto) >20 H (0-2) /lpf U Epithel Cells (Auto) 6-10 H (0-2) /hpf Urine Bacteria (Auto) 1+ H (None Seen) Hyaline Casts Present A (None Presnt) /lpf Urine Osmolality 359 L (500-800) mOsm/kg Ur Random Creatinine 200.3 mg/dl Ur Random Sodium 46 mmol/L Ur Random Potassium 28.7 mmol/L Ur Random Chloride 18 mmol/L POC Stool Occult Blood (Negative) Salicylates (3.0-30) mg/dl Urine Opiates Screen Neg (Neg) Ur Methadone, Qual Neg (Neg) Urine Fentanyl Screen Neg (Neg) Acetaminophen (10-30) ug/ml Urine Barbiturates Neg (Neg) Ur Phencyclidine (PCP) Neg (Neg) U Amphetamin/Meth Scrn Neg (Neg) MDMA (Ecstasy) Screen Neg (Neg) U Benzodiazepines Scrn Neg (Neg) Ur Cocaine Metabolite Neg (Neg) U Marijuana (THC) Screen Neg (Neg) Ethyl Alcohol mg/dL (<10.0) mg/dl Blood Type Blood Type Recheck Antibody Screen Crossmatch 07/20/24 07/20/24 07/20/24 Range/Units 15:30 16:49 17:06 WBC (4.8-10.8) K/ul RBC (4.20-5.40) M/uL Hgb (12.0-16.0) g/dl POC Hgb 6.8 L* (12.0-16.0) g/dl Hct (37.0-47.0) % POC Hct 20 L* (37-47) % MCV (80.0-100.0) fL MCH (25.0-34.0) pg MCHC (32.0-36.0) g/dL RDW Std Deviation (36.4-46.3) fL RDW Coeff of Jolene (11.5-14.5) % Plt Count (130-400) K/uL MPV (9.4-12.4) fL Immature Gran % (Auto) % Neut % (Auto) % Lymph % (Auto) % Clare % (Auto) % Eos % (Auto) % Baso % (Auto) % Neut # (Auto) (1.40-6.50) K/uL Lymph # (Auto) (1.20-3.40) K/uL Clare # (Auto) (0.11-0.59) K/uL Eos # (Auto) (0.00-0.50) K/uL Baso # (Auto) (0.00-0.20) K/uL Immature Gran # (Auto) (0.01-0.20) K/uL Absolute Nucleated RBC (0.00-0.12) K/uL Nucleated RBC % (auto) % Polychromasia Echinocytes PT (9.0-12.0) Seconds INR (0.9-1.1) APTT (21-31) Seconds PTT Ratio Specimen Type Arterial POC pH 7.30 L (7.35-7.45) POC pCO2 19 L (35-46) mmHg POC pO2 97 H (80-95) mmHg POC HCO3 9 L (19-24) nanda/L POC Base Excess -17.0 L (-9-1.8) nanda/L POC ABG O2 Sat 97.0 H (90-95) % POC Sodium 137 (135-144) mmol/L Sodium 140 (136-145) mmol/L POC Potassium 3.7 (3.3-5.0) mmol/L Potassium TNP (3.5-5.1) mmol/L POC Chloride (101-112) mmol/L Chloride 102 (98-107) mmol/L Carbon Dioxide 12 L (21-32) mmol/L POC Total CO2 10 L (24-31) mmol/L Anion Gap 26 H (3-11) POC Anion Gap (16-25) mmol/L POC BUN (7-18) mg/dl BUN 162 H D (6-23) mg/dl Creatinine 15.30 H* D (0.6-1.2) mg/dl POC Creatinine (0.6-1.3) mg/dl Est Cr Clr Drug Dosing 3.3 ml/min eGFR 2.31 BUN/Creatinine Ratio TNP (10-20) Glucose 118 H (70-99(Fasting)) mg/dl POC Glucose (other) (70-99) mg/dl Osmolality (280-300) mOsm/kg Lactate 1.4 (0.4-2.0) mmol/L Calcium 8.4 L (8.6-10.3) mg/dl POC Ioniz Calcium Tiara (1.12-1.32) mmol/l Total Bilirubin (0.2-1.0) mg/dl AST (13-39) U/L ALT (7-52) U/L Alkaline Phosphatase (34-104) U/L Troponin I High Sens 240.4 H* D (0-14) pg/ml Total Protein (6.0-8.3) gm/dl Albumin (3.4-5.0) gm/dl Globulin (2.5-4.0) gm/dl Albumin/Globulin Ratio (0.9-2) Urine Color Urine Appearance (Clear) Urine pH (4.5-7.5) Ur Specific Wright (1.000-1.030) Urine Protein (Negative) Urine Glucose (UA) (Negative) Urine Ketones (Negative) Urine Blood (Negative) Urine Nitrite (Negative) Urine Bilirubin (Negative) Urine Urobilinogen (Negative) Ur Leukocyte Esterase (Negative) Urine WBC (Auto) (0-5) /hpf Urine RBC (Auto) (0-2) /hpf U Hyaline Cast (Auto) (0-2) /lpf U Epithel Cells (Auto) (0-2) /hpf Urine Bacteria (Auto) (None Seen) Hyaline Casts (None Presnt) /lpf Urine Osmolality (500-800) mOsm/kg Ur Random Creatinine mg/dl Ur Random Sodium mmol/L Ur Random Potassium mmol/L Ur Random Chloride mmol/L POC Stool Occult Blood (Negative) Salicylates < 3.0 L (3.0-30) mg/dl Urine Opiates Screen (Neg) Ur Methadone, Qual (Neg) Urine Fentanyl Screen (Neg) Acetaminophen < 3 L (10-30) ug/ml Urine Barbiturates (Neg) Ur Phencyclidine (PCP) (Neg) U Amphetamin/Meth Scrn (Neg) MDMA (Ecstasy) Screen (Neg) U Benzodiazepines Scrn (Neg) Ur Cocaine Metabolite (Neg) U Marijuana (THC) Screen (Neg) Ethyl Alcohol mg/dL < 10.0 (<10.0) mg/dl Blood Type Blood Type Recheck Antibody Screen Crossmatch 07/20/24 07/20/24 Range/Units 17:53 Unknown WBC (4.8-10.8) K/ul RBC (4.20-5.40) M/uL Hgb (12.0-16.0) g/dl POC Hgb (12.0-16.0) g/dl Hct (37.0-47.0) % POC Hct (37-47) % MCV (80.0-100.0) fL MCH (25.0-34.0) pg MCHC (32.0-36.0) g/dL RDW Std Deviation (36.4-46.3) fL RDW Coeff of Jolene (11.5-14.5) % Plt Count (130-400) K/uL MPV (9.4-12.4) fL Immature Gran % (Auto) % Neut % (Auto) % Lymph % (Auto) % Clare % (Auto) % Eos % (Auto) % Baso % (Auto) % Neut # (Auto) (1.40-6.50) K/uL Lymph # (Auto) (1.20-3.40) K/uL Clare # (Auto) (0.11-0.59) K/uL Eos # (Auto) (0.00-0.50) K/uL Baso # (Auto) (0.00-0.20) K/uL Immature Gran # (Auto) (0.01-0.20) K/uL Absolute Nucleated RBC (0.00-0.12) K/uL Nucleated RBC % (auto) % Polychromasia Echinocytes PT (9.0-12.0) Seconds INR (0.9-1.1) APTT (21-31) Seconds PTT Ratio Specimen Type POC pH (7.35-7.45) POC pCO2 (35-46) mmHg POC pO2 (80-95) mmHg POC HCO3 (19-24) nanda/L POC Base Excess (-9-1.8) nanda/L POC ABG O2 Sat (90-95) % POC Sodium (135-144) mmol/L Sodium (136-145) mmol/L POC Potassium (3.3-5.0) mmol/L Potassium 3.9 D (3.5-5.1) mmol/L POC Chloride (101-112) mmol/L Chloride (98-107) mmol/L Carbon Dioxide (21-32) mmol/L POC Total CO2 (24-31) mmol/L Anion Gap (3-11) POC Anion Gap (16-25) mmol/L POC BUN (7-18) mg/dl BUN (6-23) mg/dl Creatinine (0.6-1.2) mg/dl POC Creatinine (0.6-1.3) mg/dl Est Cr Clr Drug Dosing ml/min eGFR BUN/Creatinine Ratio (10-20) Glucose (70-99(Fasting)) mg/dl POC Glucose (other) (70-99) mg/dl Osmolality (280-300) mOsm/kg Lactate (0.4-2.0) mmol/L Calcium (8.6-10.3) mg/dl POC Ioniz Calcium Tiara (1.12-1.32) mmol/l Total Bilirubin (0.2-1.0) mg/dl AST (13-39) U/L ALT (7-52) U/L Alkaline Phosphatase (34-104) U/L Troponin I High Sens (0-14) pg/ml Total Protein (6.0-8.3) gm/dl Albumin (3.4-5.0) gm/dl Globulin (2.5-4.0) gm/dl Albumin/Globulin Ratio (0.9-2) Urine Color Urine Appearance (Clear) Urine pH (4.5-7.5) Ur Specific Wright (1.000-1.030) Urine Protein (Negative) Urine Glucose (UA) (Negative) Urine Ketones (Negative) Urine Blood (Negative) Urine Nitrite (Negative) Urine Bilirubin (Negative) Urine Urobilinogen (Negative) Ur Leukocyte Esterase (Negative) Urine WBC (Auto) (0-5) /hpf Urine RBC (Auto) (0-2) /hpf U Hyaline Cast (Auto) (0-2) /lpf U Epithel Cells (Auto) (0-2) /hpf Urine Bacteria (Auto) (None Seen) Hyaline Casts (None Presnt) /lpf Urine Osmolality (500-800) mOsm/kg Ur Random Creatinine mg/dl Ur Random Sodium mmol/L Ur Random Potassium mmol/L Ur Random Chloride mmol/L POC Stool Occult Blood Positive A (Negative) Salicylates (3.0-30) mg/dl Urine Opiates Screen (Neg) Ur Methadone, Qual (Neg) Urine Fentanyl Screen (Neg) Acetaminophen (10-30) ug/ml Urine Barbiturates (Neg) Ur Phencyclidine (PCP) (Neg) U Amphetamin/Meth Scrn (Neg) MDMA (Ecstasy) Screen (Neg) U Benzodiazepines Scrn (Neg) Ur Cocaine Metabolite (Neg) U Marijuana (THC) Screen (Neg) Ethyl Alcohol mg/dL (<10.0) mg/dl Blood Type Blood Type Recheck Antibody Screen Crossmatch Administered Medications Pantoprazole Sodium 40 mg/ (Dextrose) 100 mls @ 20 mls/hr IV Q5H ROC Stop: 08/19/24 14:29 Last Admin: 07/20/24 15:04 Dose: 8 mg/hr, 20 mls/hr Documented By: HILARY Sodium Bicarbonate 150 meq/ (Dextrose) 1,150 mls @ 100 mls/hr IV .[id number] ROC Stop: 07/21/24 16:15 Last Admin: 07/20/24 16:42 Dose: 150 mls/hr Documented By: MMF Sodium Chloride (Nss) 1,000 mls @ 999 mls/hr IV .Q1H1M ONE Stop: 07/20/24 18:57 Last Admin: 07/20/24 18:10 Dose: 999 mls/hr Documented By: MMF Discontinued Medications Acetaminophen (Acetaminophen 1000 Mg/100 Ml Iv) Confirm Administered Dose 1,000 mg IV .STK-MED ONE Stop: 07/20/24 18:04 Last Admin: 07/20/24 18:10 Dose: 1,000 mg Documented By: MMF Sodium Chloride (Nss) 1,000 mls @ 999 mls/hr IV .Q1H1M ONE Stop: 07/20/24 14:54 Last Infusion: 07/20/24 15:42 Dose: Infused Documented By: Admin: 07/20/24 14:36 Dose: 999 mls/hr Documented By: HILARY Famotidine (Pepcid 20mg Iv Push) 20 mg in 5 mls @ 2.5 mls/min IV NOW STA Stop: 07/20/24 14:00 Last Admin: 07/20/24 14:35 Dose: 2.5 mls/min Documented By: HILARY Pantoprazole Sodium 80 mg/ (Dextrose) 120 mls @ 480 mls/hr IV NOW ONE Stop: 07/20/24 14:13 Last Infusion: 07/20/24 15:00 Dose: Infused Documented By: Admin: 07/20/24 14:32 Dose: 480 mls/hr Documented By: HILARY Sodium Chloride (Nss) 1,000 mls @ 999 mls/hr IV .Q1H1M ONE Stop: 07/20/24 15:21 Last Infusion: 07/20/24 15:04 Dose: Infused Documented By: Admin: 07/20/24 14:00 Dose: 999 mls/hr Documented By: HILARY Sodium Chloride (Nss) 500 mls @ 999 mls/hr IV .Q31M ONE Stop: 07/20/24 16:31 Last Infusion: 07/20/24 18:18 Dose: Infused Documented By: Admin: 07/20/24 16:13 Dose: 999 mls/hr Documented By: MMF Ceftriaxone Sodium (Rocephin) 2,000 mg in 50 mls @ 100 mls/hr IV NOW STA Stop: 07/20/24 17:51 Last Admin: 07/20/24 18:20 Dose: 100 mls/hr Documented By: MMF Acetaminophen (Ofirmev) 1,000 mg in 100 mls @ 400 mls/hr IV NOW STA Stop: 07/20/24 18:22 Last Admin: 07/20/24 18:18 Dose: Not Given Documented By: CHRISTINE Ondansetron HCl (Ondansetron Inj 2 Mg/Ml 2 Ml Vial) Confirm Administered Dose 4 mg .ROUTE .STK-MED ONE Stop: 07/20/24 13:41 Last Admin: 07/20/24 13:45 Dose: 4 mg Documented By: HILARY Ondansetron HCl (Ondansetron Inj 2 Mg/Ml 2 Ml Vial) 4 mg IV NOW STA Stop: 07/20/24 17:53 Last Admin: 07/20/24 18:10 Dose: 4 mg Documented By: MG Ondansetron HCl (Ondansetron Inj 2 Mg/Ml 2 Ml Vial) 4 mg IV NOW STA Stop: 07/20/24 18:08 Last Admin: 07/20/24 18:19 Dose: Not Given Documented By: CHRISTINE Pantoprazole Sodium (Pantoprazole Bolus/Drip) 1 each IV NOW STA Stop: 07/20/24 14:00 Last Admin: 07/20/24 15:42 Dose: Not Given Documented By: MG Sodium Bicarbonate (Sodium Bicarb 8.4% Inj 50 Meq/50 Ml Syr) 50 meq IV NOW STA Stop: 07/20/24 16:38 Last Admin: 07/20/24 16:41 Dose: 50 meq Documented By: MG Imaging Data Radiologist's Impression: Chest X-Ray 07/20/24 13:30 EXAM: Radiograph of the Chest 1 View INDICATION: History GI bleeding. TECHNIQUE: Frontal view of the chest. COMPARISON: 06/19/2024 FINDINGS: Lungs and pleural spaces: No consolidation or pulmonary edema. No pleural effusion or pneumothorax. Heart: Shape and configuration within normal limits allowing for technique. Mediastinum: Normal contour. Bones/joints: Degenerative changes noted throughout the spine. No acute osseous abnormality seen. Soft tissues: No abnormality noted. No radiopaque foreign body noted. Vasculature: Stable mildly calcified ectatic aorta. Upper abdomen: No free intraperitoneal air noted subjacent to either diaphragm. IMPRESSION: No acute cardiopulmonary disease. ACT 112: Negative or not required by law. Electronically signed by Radha Osullivan 07-20-2024 2:04 PM Abdomen/Pelvis CT 07/20/24 13:59 EXAM: CT Abdomen and Pelvis Without Intravenous Contrast INDICATION: GI bleeding. Acute renal failure. TECHNIQUE: Axial computed tomography images of the abdomen and pelvis without intravenous contrast. Sagittal and coronal reformatted images were created and reviewed. This CT exam was performed using one or more of the following dose reduction techniques: automated exposure control, adjustment of the mA and/or kV according to patient size, and/or use of iterative reconstruction technique. COMPARISON: No relevant prior studies available. FINDINGS: Limitations: Streak artifact from the patient's arms noted over the renal shadows and portions of the stomach. Lung bases: No abnormality noted. Pleural space: No visualized pleural effusion or pneumothorax. Heart: There is dense mitral annular calcification. Mediastinum: No abnormality noted. ABDOMEN: Liver: Lack of intravenous contrast limits detection of some masses. No abnormality noted. Gallbladder and bile ducts: No calcified stones or surrounding fluid. Pancreas: No pancreatic mass, calcification, inflammation or ductal dilation noted. Spleen: No significant abnormality noted. Adrenals: No significant abnormality noted. Kidneys and ureters: There are multiple nonobstructing stones in each kidney measuring from punctate in size to up to 5 mm. No hydronephrosis or ureteral stone. Exophytic 5 mm dense nodule from the medial lower pole left kidney. Stomach and bowel: The stomach contains layering fluid. Artifact limits assessment of the posterior wall. No gross abnormality. Scattered stool throughout the colon without obstruction, inflammation or thickening. PELVIS: Appendix: Well seen and appears normal. Bladder: Collapsed bladder contains a catheter. No gross acute abnormality. Reproductive: 1 cm calcified uterine fibroid noted. ABDOMEN and PELVIS: Intraperitoneal space: No free air. No significant fluid collection. Bones/joints: Degenerative changes noted in the scoliotic spine. No acute osseous abnormality noted. Soft tissues: No significant abnormality noted. Vasculature: Atherosclerotic calcification of the aorta and branches. No aneurysm. Lymph nodes: No pathologically enlarged lymph nodes. IMPRESSION: 1. Allowing for artifact, no intestinal obstruction or inflammatory process noted. 2. Bilateral nonobstructing kidney stones. ACT 112: Negative or not required by law. Electronically signed by aRdha Osullivan 07-20-2024 3:[address] 07/20/24 13:59 EXAM: CT Head Without Intravenous Contrast INDICATION: Acute renal failure. GI bleeding. Confusion. TECHNIQUE: Axial computed tomography images of the head/brain without intravenous contrast. Sagittal and/or coronal reformats are provided. Sagittal and coronal reformatted images were created and reviewed. This CT exam was performed using one or more of the following dose reduction techniques: automated exposure control, adjustment of the mA and/or kV according to patient size, and/or use of iterative reconstruction technique. COMPARISON: 06/19/2024 FINDINGS: Limitations: None. Brain and extra-axial spaces: There is age appropriate cortical atrophy and chronic ischemic periventricular white matter hypodensity. No acute infarct, hemorrhage or mass noted. Bones/joints: No acute changes. Soft tissues: No significant abnormality noted. Vasculature: No acute abnormality noted. Sinuses: No layering fluid in the visualized portions of the paranasal sinuses. Mastoid air cells: No mastoid effusion. Orbits: No significant abnormality noted. IMPRESSION: Cerebral atrophy. No acute changes. ACT 112: Negative or not required by law. Electronically signed by Radha Osullivan 07-20-2024 3:03 PM Discharge Plan Visit Data Chief Complaint: GI Bleed Stated Complaint: GI BLEED, HYPOTENSION ED Provider: Jose Foster Discharge Problem: Acute GI bleeding, Acute renal failure, Acute hypotension, Nausea & vomiting Forms Stand Alone Forms: My [facility] Prescriptions Prescriptions: No Action pantoprazole 40 mg Tablet,Delayed Release (Dr/Ec) 40 mg PO PM Rx Instructions: filled 07/02 90 day supply duloxetine [Cymbalta] 60 mg Capsule,Delayed Release(Dr/Ec) 60 mg PO UD Rx Instructions: 60 mg po daily. filled 07/10 90 day supply atorvastatin 40 mg Tablet 80 mg PO PM Rx Instructions: 80 mg filled 06/23 90 day supply ondansetron HCl 4 mg tablet 4 mg PO Q6H PRN (Reason: n/v) clopidogrel 75 mg tablet 75 mg PO DAILY Rx Instructions: Filled 07/13 90 day supply allopurinol 100 mg tablet 100 mg PO DAILY Rx Instructions: filled 05/19 90 day supply famotidine 20 mg tablet 20 mg PO DAILY Rx Instructions: Filled 05/13 90 day supply bupropion HCl 300 mg tablet extended release 24 hr 300 mg PO DAILY Rx Instructions: filled 06/12 day supply potassium citrate 10 mEq (1,080 mg) tablet extended release 10 meq PO BID lisinopril 40 mg tablet 40 mg PO DAILY Referrals Referrals: Clare Sequeira DO [Primary Care Provider] -
--- NOTE | 2024-07-20 15:20 | History & Physical Report ---
Date of Service July 20, 2024 Assessment & Plan (1) Metabolic encephalopathy: (2) High anion gap metabolic acidosis: (3) Acute renal failure: (4) Shock circulatory: (5) Acute GI bleeding: Plan This is a Critically Ill 68-year-old female who has a significant past medical history of HTN, HLD, GERD, CKD stage IIIb, tobacco use disorder and depression who presents to ED with concerns of dark tarry stool. Pt reports dark tarry stool for approx 2-3 weeks. Acute Metabolic Encephalopathy High anion gap metabolic acidosis Acute Renal failure superimposed on CKD Acute blood loss anemia 2/2 GIB Shock - likely in setting of hemorrhagic and hypovolemia, can't rule out sepsis Admit to ICU Initiate Levophed if MAP < 65 despite multiple fluid bolus and current blood transfusion 2 units PRBC ordered, will place 4 more units on hold Empiric IV rocephin until sepsis ruled out, CXR negative, UA + 1 bacturia admit to ICU for on going critical care baseline cr 1.6-2, last done on 07/02 was 2.0 ( she did receive IV contrast on 06/25, cr was 1.9 on that day) --CT head negative Suspected GIB Acute blood loss anemia hgb 06/2023 12.6, 07/02 was 9.2 pt reports dark stool x 2-3 weeks, no prior hx of endoscopy Pt started on plavix 3 days ago due to outpt w/u regarding CVA and identified to have severe carotid artery stenosis Started on PPI bolus/gtt Elevated troponin suspect Type II CA in setting of demand due to shock, will trend and get echo HTN: chronic, hold lisinopril given MYRON/hypotension Carotid artery stenosis: outpt CTA of neck revealed 70 to 90% stenosis of the right ICA and 50 to 70% of the left ICA. She has been referred to vascular and this is why plavix was initated DVT PPX: SCDS FULL CODE PCP: Lorenza Sequeira Dispo: admit to ICU Pt was seen and examined in collaboration with Dr. Salvador, please see addendum I spent a total of 90 minutes reviewing notes, outpatient records, labs, medication, coordinating, documenting and providing care for this patient excluding time spent in the performance of separately billed services. History of Present Illness Chief Complaint: Dark Tarry Stool Primary Care Provider: Clare Sequeira, DO This is a 68-year-old female who has a significant past medical history of HTN, HLD, GERD, CKD stage IIIb, tobacco use disorder and depression who presents to ED with concerns of dark tarry stool. Pt reports dark tarry stool for approx 2-3 weeks. Of significance she was seen in the ED on 06/19/2024 secondary to experiencing vision loss in her left eye. Her initial head CT revealed an age- indeterminate lacunar infarct and it was recommended that patient be admitted for further workup. Unfortunately patient refused and left AMA. She was seen in clinic by her PCP on 07/02/2024. She she has since seen ophthalmology who confirmed vision deficit, but it was reported not significant enough to inhibit driving. She did undergo an MRI of the brain which revealed small vessel ischemic changes. Her CTA of neck also revealed 70 to 90% stenosis of the right ICA and 50 to 70% of the left ICA. She was referred to vascular surgery and started on Plavix. Per pts sister she has only had 3 doses of plavix thus far. Her atorvastatin was increased. At that point in time her hemoglobin was noted to be 9.1 without any concerns for rectal bleeding. She reports over the last week she has been getting gradually more weak and having difficulty walking, nausea, dark stool, occasional brb in stool and abd pain. Per ED provider pt presented via EMS. Pre hospital personal noted SBP in 80s. She received 500ml of IVF for EMS and O2 was adequate. In ED she received additional 1.5L of IVF and a kaufman cath was placed. a CT head and CT a/p was performed which did no show any acute abnormality. Sister is at bedside who helps elicit history. Pt denies hx of C scope or endoscopy in past. Allergies Allergy/AdvReac Type Severity Reaction Status Date / Time amoxicillin Allergy Unknown vomiting Verified 09/11/19 13:07 Home Medications Medication Instructions Recorded Confirmed Type atorvastatin 40 mg tablet 80 mg PO PM 08/25/19 07/20/24 History duloxetine 60 mg capsule,delayed 60 mg PO UD 08/25/19 07/20/24 History release (Cymbalta) pantoprazole 40 mg tablet,delayed 40 mg PO PM 08/25/19 07/20/24 History release allopurinol 100 mg tablet 100 mg PO DAILY 07/20/24 07/20/24 History bupropion HCl 300 mg 24 hr tablet, 300 mg PO DAILY 07/20/24 07/20/24 History extended release clopidogrel 75 mg tablet 75 mg PO DAILY 07/20/24 07/20/24 History famotidine 20 mg tablet 20 mg PO DAILY 07/20/24 07/20/24 History lisinopril 40 mg tablet 40 mg PO DAILY 07/20/24 07/20/24 History ondansetron HCl 4 mg tablet 4 mg PO Q6H PRN n/v 07/20/24 07/20/24 History potassium citrate 10 mEq (1,080 10 meq PO BID 07/20/24 07/20/24 History mg) tablet,extended release Past Med/Surg History Problem List (Updated 07/20/24 @ 17:18 by Chio Duran PA-C) High anion gap metabolic acidosis Metabolic encephalopathy Shock circulatory Encephalopathy acute Nausea & vomiting (Acute) Acute hypotension (Acute) Acute renal failure (Acute) Acute GI bleeding (Acute) Kidney stones Pleuritic pain (Acute) Side pain (Acute) Side pain (Acute) Medical History Degenerative disc disease Chronic back pain GERD (gastroesophageal reflux disease) Depression Cardiac murmur DOESNT FOLLOW CARDIOLOGY Hypertension Hyperlipidemia Surgical History History of lithotripsy Family History Mother Diabetes Father Lung cancer Social History Smoking Status: Former smoker Cigarettes Per Day: 1 PPD; Second Hand Exposure: Yes; Do You Dip or Chew Tobacco: No; Hx Alcohol Use: No Hx Substance Use: No Preferred Language: Gambian Communication Ability: Effective Shingler Required: No Beliefs That Will Affect Care: None Current Living Situation: Alone Feels Safe at Home: Yes Assistive Devices: Glasses Review of Systems Review of Systems: All systems reviewed & are unremarkable except as noted in HPI & below Physical Exam Physical Exam: please refer to Dr. Salvador addendum for physical exam findings. Results & Data Results & Data Vital Signs (Past 12 Hours) Vital Signs Temp Pulse Pulse Resp BP BP Pulse Ox 07/20/24 15:15 35.8 C L 112 H 26 H 100/48 L 99 07/20/24 15:06 35.9 C L 07/20/24 14:55 112 H 26 H 87/49 L 95 07/20/24 14:45 113 H 27 H 85/51 L 94 07/20/24 14:30 113 H 27 H 97/56 L 94 07/20/24 14:26 108 H 07/20/24 14:25 33.2 C L 07/20/24 14:15 112 H 24 97/56 L 97 07/20/24 13:57 111 H 25 H 98/60 L 99 07/20/24 13:36 36.8 C 114 H 23 83/62 L 96 07/20/24 13:36 117 H 28 H 97 07/20/24 13:36 36.8 C 113 H 26 H 83/62 L 97 07/20/24 13:33 113 H 27 H 83/62 L 91 O2 Del Method 07/20/24 15:15 07/20/24 15:06 07/20/24 14:55 Room Air 07/20/24 14:45 Room Air 07/20/24 14:30 Room Air 07/20/24 14:26 07/20/24 14:25 07/20/24 14:15 Room Air 07/20/24 13:57 Room Air 07/20/24 13:36 Room Air 07/20/24 13:36 Room Air 07/20/24 13:36 Room Air 07/20/24 13:33 Room Air Laboratory Results I have independently reviewed and interpreted patient's admitting labs including CBC, CMP, PTT, PT/INR, mag and troponin. Diagnostic Findings Chest X-Ray 07/20/24 13:30 EXAM: Radiograph of the Chest 1 View INDICATION: History GI bleeding. TECHNIQUE: Frontal view of the chest. COMPARISON: 06/19/2024 FINDINGS: Lungs and pleural spaces: No consolidation or pulmonary edema. No pleural effusion or pneumothorax. Heart: Shape and configuration within normal limits allowing for technique. Mediastinum: Normal contour. Bones/joints: Degenerative changes noted throughout the spine. No acute osseous abnormality seen. Soft tissues: No abnormality noted. No radiopaque foreign body noted. Vasculature: Stable mildly calcified ectatic aorta. Upper abdomen: No free intraperitoneal air noted subjacent to either diaphragm. IMPRESSION: No acute cardiopulmonary disease. ACT 112: Negative or not required by law. Electronically signed by Radha Osullivan 07-20-2024 2:04 PM Abdomen/Pelvis CT 07/20/24 13:59 EXAM: CT Abdomen and Pelvis Without Intravenous Contrast INDICATION: GI bleeding. Acute renal failure. TECHNIQUE: Axial computed tomography images of the abdomen and pelvis without intravenous contrast. Sagittal and coronal reformatted images were created and reviewed. This CT exam was performed using one or more of the following dose reduction techniques: automated exposure control, adjustment of the mA and/or kV according to patient size, and/or use of iterative reconstruction technique. COMPARISON: No relevant prior studies available. FINDINGS: Limitations: Streak artifact from the patient's arms noted over the renal shadows and portions of the stomach. Lung bases: No abnormality noted. Pleural space: No visualized pleural effusion or pneumothorax. Heart: There is dense mitral annular calcification. Mediastinum: No abnormality noted. ABDOMEN: Liver: Lack of intravenous contrast limits detection of some masses. No abnormality noted. Gallbladder and bile ducts: No calcified stones or surrounding fluid. Pancreas: No pancreatic mass, calcification, inflammation or ductal dilation noted. Spleen: No significant abnormality noted. Adrenals: No significant abnormality noted. Kidneys and ureters: There are multiple nonobstructing stones in each kidney measuring from punctate in size to up to 5 mm. No hydronephrosis or ureteral stone. Exophytic 5 mm dense nodule from the medial lower pole left kidney. Stomach and bowel: The stomach contains layering fluid. Artifact limits assessment of the posterior wall. No gross abnormality. Scattered stool throughout the colon without obstruction, inflammation or thickening. PELVIS: Appendix: Well seen and appears normal. Bladder: Collapsed bladder contains a catheter. No gross acute abnormality. Reproductive: 1 cm calcified uterine fibroid noted. ABDOMEN and PELVIS: Intraperitoneal space: No free air. No significant fluid collection. Bones/joints: Degenerative changes noted in the scoliotic spine. No acute osseous abnormality noted. Soft tissues: No significant abnormality noted. Vasculature: Atherosclerotic calcification of the aorta and branches. No aneurysm. Lymph nodes: No pathologically enlarged lymph nodes. IMPRESSION: 1. Allowing for artifact, no intestinal obstruction or inflammatory process noted. 2. Bilateral nonobstructing kidney stones. ACT 112: Negative or not required by law. Electronically signed by Radha Osullivan 07-20-2024 3:[address] 07/20/24 13:59 EXAM: CT Head Without Intravenous Contrast INDICATION: Acute renal failure. GI bleeding. Confusion. TECHNIQUE: Axial computed tomography images of the head/brain without intravenous contrast. Sagittal and/or coronal reformats are provided. Sagittal and coronal reformatted images were created and reviewed. This CT exam was performed using one or more of the following dose reduction techniques: automated exposure control, adjustment of the mA and/or kV according to patient size, and/or use of iterative reconstruction technique. COMPARISON: 06/19/2024 FINDINGS: Limitations: None. Brain and extra-axial spaces: There is age appropriate cortical atrophy and chronic ischemic periventricular white matter hypodensity. No acute infarct, hemorrhage or mass noted. Bones/joints: No acute changes. Soft tissues: No significant abnormality noted. Vasculature: No acute abnormality noted. Sinuses: No layering fluid in the visualized portions of the paranasal sinuses. Mastoid air cells: No mastoid effusion. Orbits: No significant abnormality noted. IMPRESSION: Cerebral atrophy. No acute changes. ACT 112: Negative or not required by law. Electronically signed by Radha Osullivan 07-20-2024 3:03 PM Medications Administered Medication List Pantoprazole Sodium 40 mg/ (Dextrose) 100 mls @ 20 mls/hr IV Q5H ROC Stop: 08/19/24 14:29 Last Admin: 07/20/24 15:04 Dose: 8 mg/hr, 20 mls/hr Documented By: HILARY Discontinued Medications Sodium Chloride (Nss) 1,000 mls @ 999 mls/hr IV .Q1H1M ONE Stop: 07/20/24 14:54 Last Admin: 07/20/24 14:36 Dose: 999 mls/hr Documented By: HILARY Famotidine (Pepcid 20mg Iv Push) 20 mg in 5 mls @ 2.5 mls/min IV NOW STA Stop: 07/20/24 14:00 Last Admin: 07/20/24 14:35 Dose: 2.5 mls/min Documented By: HILARY Pantoprazole Sodium 80 mg/ (Dextrose) 120 mls @ 480 mls/hr IV NOW ONE Stop: 07/20/24 14:13 Last Infusion: 07/20/24 15:00 Dose: Infused Documented By: Admin: 07/20/24 14:32 Dose: 480 mls/hr Documented By: HILARY Sodium Chloride (Nss) 1,000 mls @ 999 mls/hr IV .Q1H1M ONE Stop: 07/20/24 15:21 Last Infusion: 07/20/24 15:04 Dose: Infused Documented By: Admin: 07/20/24 14:00 Dose: 999 mls/hr Documented By: HILARY Ondansetron HCl (Ondansetron Inj 2 Mg/Ml 2 Ml Vial) Confirm Administered Dose 4 mg .ROUTE .STK-MED ONE Stop: 07/20/24 13:41 Last Admin: 07/20/24 13:45 Dose: 4 mg Documented By: HILARY ECG Additional Comments: I have independently reviewed and interpreted patient's admitting EKG which revealed: 110 ST with PVC, incomplete RVVV, ST depressions V4-6 qtc 495ms COVID-19 Results Results COVID-19 Adm Lab Results: RBC 2.60 M/uL (4.20-5.40) L 07/20/24 WBC 14.13 K/ul (4.8-10.8) H 07/20/24 Hgb 7.7 g/dl (12.0-16.0) L 07/20/24 Hct 22.5 % (37.0-47.0) L 07/20/24 Plt Count 296 K/uL (130-400) 07/20/24 Neutrophils (%) (Auto) 87.4 % 07/20/24 Lymphocytes (%) (Auto) 8.4 % 07/20/24 Monocytes # (Auto) 0.47 K/uL (0.11-0.59) 07/20/24 Eosinophils # (Auto) 0.00 K/uL (0.00-0.50) 07/20/24 Immature Granulocyte % (Auto) 0.7 % 07/20/24 Neutrophils # (Auto) 12.35 K/uL (1.40-6.50) H 07/20/24 Lymphocytes # (Auto) 1.18 K/uL (1.20-3.40) L 07/20/24 Monocytes # (Auto) 0.47 K/uL (0.11-0.59) 07/20/24 Eosinophils # (Auto) 0.00 K/uL (0.00-0.50) 07/20/24 Basophils # (Auto) 0.03 K/uL (0.00-0.20) 07/20/24 Immature Granulocyte # (Auto) 0.10 K/uL (0.01-0.20) 4 Polychromasia 1+ 07/20/24 Echinocytes 1+ 07/20/24 Na 139 mmol/L (136-145) 07/20/24 K 5.0 mmol/L (3.5-5.1) 07/20/24 Cl 97 mmol/L (98-107) L 07/20/24 CO2 12 mmol/L (21-32) L 07/20/24 Anion Gap 30 (3-11) H 07/20/24 BUN 183 mg/dl (6-23) H 07/20/24 Creatinine 18.17 mg/dl (0.6-1.2) H* 07/20/24 BUN/Creatinine Ratio 10.1 (10-20) 07/20/24 Glucose Level 126 mg/dl (70-99(Fasting)) H 07/20/24 Ca 9.8 mg/dl (8.6-10.3) 07/20/24 Total Bilirubin 0.3 mg/dl (0.2-1.0) 07/20/24 AST/SGOT 29 U/L (13-39) 07/20/24 ALT/SGPT 17 U/L (7-52) 07/20/24 Alkaline Phosphatase 79 U/L (34-104) 07/20/24 Total Protein 7.0 gm/dl (6.0-8.3) 07/20/24 Albumin 3.6 gm/dl (3.4-5.0) 07/20/24 Globulin 3.4 gm/dl (2.5-4.0) 07/20/24 Albumin/Globulin Ratio 1.1 (0.9-2) 07/20/24 PTT 23 Seconds (21-31) 07/20/24 INR 1.1 (0.9-1.1) 07/20/24 Chest X-Ray 07/20/24 Code Status & VTE Plan Code Status FULL CODE Supervising Physician Co-Signing Physician Notes Attending addendum: The patient was seen and examined in emergency room in presence of the sister She has been complaining of progressive weakness for some time and also has black tarry stool associated with abdominal discomfort and nausea and also vomiting for at least 2 weeks She has had a CTA done with contrast on May and following that she had a BMP done on june which showed creatinine of 2.0. She has been making out less urine and has not been eating or drinking enough for the last few weeks or so Her symptoms worsen until today when she was brought into the emergency room for further evaluation She complains to have some cough without phlegm, very weak and lethargic and noted to be pleasantly confused on examination On Examination Pleasantly confused with abnormal hemodynamics with blood pressure of 89/56, tachycardia 121, respiration of09/15/2025 and afebrile She is saturating normally on room air Chestclear to auscultate bilaterally HeartS1, S2 regular Abdomenbenign and bowel sound present Extremitiesno edema CNSalert and awake. Pleasantly confused. Moving all limbs but generally weak Her labs, EKG and imaging studies reviewed Acute Metabolic Encephalopathy Acute renal failure likely secondary to ATN may be induced by use of contrast on 25 of June even though the BMP did not show any evidence of nephropathy on 07/02/2024- creatinine of 2.0 She has significantly high BUN of183 and creatinine of 18.17- nephrology was consulted for appropriate management She has heme positive stool with hemoglobin of 7.7 and she is receiving 1 unit of blood transfusion and GI will be consulted for further evaluation and management Her blood pressure remains low since coming to the emergency room and did not show much improvement even with intravenous fluid including intravenous bicarb drip She was evaluated by the manager spa and will need to ICU admission with pressor agents to maintain blood pressure The case was discussed with the sister in detail and all of her questions were answered She remains very critical and may need urgent dialysis and may need to be transferred if there is no possible over here tonight Agree with assessment and plan as outlined above by Candice Yuen PA-C and take the full responsibility of care Dr Ari Salvador
[2024-07-20] MEDS: PANTOPRAZOLE BOLUS/DRIP IV STA (15:42)
[2024-07-20] MEDS ORDERED: STAT IV/IM STA ×2 (16:08→19:13)
[2024-07-20] MEDS: SODIUM CHLORIDE 0.9% 500 ML IV ONE (16:13)
[2024-07-20] MEDS ORDERED: SODIUM BICARBONATE 8.4% 150 MEQ in WATER, STERILE 1,000 ML IV SCH (16:15)
--- NOTE | 2024-07-20 16:31 | Critical Care Consultation ---
Date of Consultation July 20, 2024 Assessment & Plan (1) Acute renal failure: (2) Acute GI bleeding: (3) Kidney stones: (4) Encephalopathy acute: (5) Shock circulatory: Plan Reason Critically Ill: 68-year-old female presented to the hospital for lethargy and dark tarry stools Past medical history: Hypertension, GERD, CKD, dyslipidemia Patient sent to the ICU for hypotension, severe anemia and elevated creatinine Neuro - [facility] ICU: Negative --Metabolic encephalopathy Likely secondary to elevated BUN as well as hypotension CT head 07/20/2024: Negative for any acute changes --Anxiety/depression On duloxetine and bupropion Cardiac - --Shock Likely hemorrhagic with a component of hypovolemia/dehydration Got 2 L of IV fluid, getting 2 units PRBC If blood pressure does not respond I would recommend Levophed to keep MAP greater than 65 -- Elevated troponin Likely type II DC Continue to trend EKG 07/20/2024, 1338: Motion artifact, sinus tachycardia, PACs, ST depressions appreciated on lead II 3 as well as lateral leads. No ST elevations --History of hypertension and dyslipidemia On lisinopril 20 and atorvastatin 80 mg Respiratory - -- No acute issues Saturating well on room air GI - -- Acute blood loss anemia Getting 2 units of PRBC GI on board -- GERD On pantoprazole RENAL/LYTES - -- MYRON on CKD Baseline creatinine 1.85 At presentation creatinine was 18.17 with BUN 183, potassium 5 Monitor BUN/creatinine Avoid nephrotoxic medications Strict ins and outs -- HAGMA Delta-delta: Between 1 and 2 Likely sec to elevated BUN Follow up serum osm, urine osm, urine lytes Monitor Bicarb deficit 350 - -- History of nephrolithiasis No evidence of hydronephrosis on CT abdomen pelvis ENDO - -- ICU hypoglycemia protocol HEME - -- Acute on chronic blood loss anemia Getting 2 units of PRBC right now Monitor H&H, try to keep hemoglobin greater than 7 PT/INR/PTT within normal limit ID - -- Leukocytosis Likely reactive from bleed UA shows +1 bacteria and positive leukocyte esterase Recommend empiric Rocephin for 48 hours to cover for UTI --Prophylaxis VTE: IPC GI: Pantoprazole Lines: Peripheral Diet: N.p.o. Plan: Patient got on 2 L IV fluid so far, recommend 500 mL bolus more. She is going to get 2 units of PRBC which will be approximately 500 mL. Patient has significant elevation in BUN/creatinine with high anion gap metabolic acidosis Bicarb deficit 350. Would recommend 50-100 mg of bicarb push followed by drip. Bicarb drip has been started. ABG 7. on room air. Patient seems to be compensating well by hyperventilating. Would recommend to repeat BMP stat now to see if there is any improvement in BUN or creatinine. If there is no significant improvement on the repeat BMP then dialysis would be one of the things to consider especially in given acute GI bleed, with elevated BUN platelets usually do not work well. I am uncertain if you have a ability to dialyze the patient today, we will try to figure out from the clinical nursing professor If the blood pressure does not respond to IV fluids then recommend Levophed to be started to keep MAP around 65 Case was discussed with ER physician as well as Dr. Salvador at bedside I have personally spent 65 minutes of critical care time in the direct management of this patient. This is a life/limb threatening event. This includes time spent evaluating patient, direct bedside care, chart review, placing orders, interpretation of diagnostic studies, discussion with consultants, patient, and family members, as well as other required patient management activities. This time is exclusive of all separately billable procedures, and teaching time and separate from and in addition to any other critical care service time. History of Present Illness History of Present Illness 68-year-old female presented to the hospital for lethargy and dark tarry stools Past medical history: Hypertension, GERD, CKD, dyslipidemia Patient sent to the ICU for hypotension, severe anemia and elevated creatinine At the time of examination patient was in any pain She denied abdominal pain. She did have nausea and threw up once which was nonbloody, nonbilious. She had multiple bowel movements while in the ER. Initially was melanotic followed by maroon-colored Patient sister was also in the room. On asking whether she has been taking pain pills on a regular basis she was not able to answer that appropriately. She was slow to respond but she was awake alert oriented to self Patient has gotten 2 L of IV fluid so far in the ER Allergies Allergy/AdvReac Type Severity Reaction Status Date / Time amoxicillin Allergy Unknown vomiting Verified 09/11/19 13:07 Home Medications Medication Instructions Recorded Confirmed Type atorvastatin 40 mg tablet 80 mg PO PM 08/25/19 07/20/24 History duloxetine 60 mg capsule,delayed 60 mg PO UD 08/25/19 07/20/24 History release (Cymbalta) lisinopril 20 mg tablet 20 mg PO PM 08/25/19 07/20/24 History naproxen 500 mg tablet 500 mg PO BID 08/25/19 07/20/24 History pantoprazole 40 mg tablet,delayed 40 mg PO PM 08/25/19 07/20/24 History release potassium citrate 10 mEq (1,080 1,080 mg PO BID 90 days #180 Tabs 10/29/20 07/20/24 Rx mg) tablet,extended release allopurinol 100 mg tablet 100 mg PO DAILY 07/20/24 07/20/24 History bupropion HCl 300 mg 24 hr tablet, 300 mg PO DAILY 07/20/24 07/20/24 History extended release clopidogrel 75 mg tablet 75 mg PO DAILY 07/20/24 07/20/24 History duloxetine 30 mg capsule,delayed 30 mg PO UD 07/20/24 07/20/24 History release famotidine 20 mg tablet 20 mg PO DAILY 07/20/24 07/20/24 History omeprazole 40 mg capsule,delayed 40 mg PO DAILY 07/20/24 07/20/24 History release ondansetron HCl 4 mg tablet 4 mg PO Q6H PRN n/v 07/20/24 07/20/24 History Patient History Medical History Degenerative disc disease Chronic back pain GERD (gastroesophageal reflux disease) Depression Cardiac murmur DOESNT FOLLOW CARDIOLOGY Hypertension Hyperlipidemia Surgical History History of lithotripsy Family History (Updated 07/20/24 @ 15:22 by Chio Duran PA-C) Mother Diabetes Father Lung cancer Social History Smoking Status: Former smoker Cigarettes Per Day: 1 PPD; Second Hand Exposure: Yes; Do You Dip or Chew Tobacco: No; Hx Alcohol Use: No Hx Substance Use: No Preferred Language: Armenian Communication Ability: Effective 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: No Beliefs That Will Affect Care: None Current Living Situation: Alone Feels Safe at Home: Yes Assistive Devices: Glasses Review of Systems 2 Review of Systems: All systems reviewed & are unremarkable except as noted in HPI & below Physical Exam 2 Physical Exam: Constitutional: No acute distress HEENT: EOMI, PERRLA Respiratory system: Good air entry bilaterally, no wheeze, no rhonchi, no crackles CVS: S1-S2 positive, no murmurs or gallops, tachycardia Abdomen: Soft, nontender, nondistended, positive bowel sounds x4 Extremities: +2 pulses bilaterally radialis/ dorsalis pedis, no cyanosis, no edema, decreased skin turgor Neuro: Awake alert oriented to self, slow to respond, no slurring of speech, moving all extremities appropriately Psych: Normal mood and affect G/U: Positive [place] Skin: no rashes, warm and dry Lymphatic: no cervical or axillary lymphadenopathy Results & Data Results & Data Vital Signs (Past 12 Hours) Vital Signs Temp Pulse Pulse Resp BP BP Pulse Ox 07/20/24 15:48 35.9 C L 115 H 24 96/45 L 99 07/20/24 15:33 35.8 C L 115 H 25 H 81/51 L 98 07/20/24 15:15 35.8 C L 112 H 26 H 100/48 L 99 07/20/24 15:06 35.9 C L 07/20/24 14:55 112 H 26 H 87/49 L 95 07/20/24 14:45 113 H 27 H 85/51 L 94 07/20/24 14:30 113 H 27 H 97/56 L 94 07/20/24 14:26 108 H 07/20/24 14:25 33.2 C L 07/20/24 14:15 112 H 24 97/56 L 97 07/20/24 13:57 111 H 25 H 98/60 L 99 07/20/24 13:36 36.8 C 114 H 23 83/62 L 96 07/20/24 13:36 117 H 28 H 97 07/20/24 13:36 36.8 C 113 H 26 H 83/62 L 97 07/20/24 13:33 113 H 27 H 83/62 L 91 O2 Del Method 07/20/24 15:48 07/20/24 15:33 07/20/24 15:15 07/20/24 15:06 07/20/24 14:55 Room Air 07/20/24 14:45 Room Air 07/20/24 14:30 Room Air 07/20/24 14:26 07/20/24 14:25 07/20/24 14:15 Room Air 07/20/24 13:57 Room Air 07/20/24 13:36 Room Air 07/20/24 13:36 Room Air 07/20/24 13:36 Room Air 07/20/24 13:33 Room Air Laboratory Results 07/20/24 13:44 07/20/24 13:48 Coding Level of Care Code 06893 CRITICAL CARE 1ST 30-74M Diagnoses Acute renal failure N17.9 Acute GI bleeding K92.2 Kidney stones N20.0 Encephalopathy acute G93.40 Shock circulatory R57.9
[2024-07-20 16:39] LABS: Appearance Urine Cloudy (Clear); Bacteria Urine Automated 1+ (None Seen); Bilirubin Urine Negative (Negative); Blood Urine 2+ (Negative); Cast Urine Automated >20 /lpf (0-2); Color Urine Yellow; Glucose Urine UA Negative (Negative); Hyaline Casts Urine Present /lpf (None Presnt); Ketones Urine Trace (Negative); Leukocyte Esterase Urine 2+ (Negative); Nitrite Urine Negative (Negative); Protein Urine 2+ (Negative); Specific Gravity Urine 1.016 (1.000-1.030); Urobilinogen Urine Negative (Negative)
[2024-07-20] MEDS: SODIUM BICARB 8.4% INJ 50 MEQ/50 ML SYR IV STA (16:41)
[2024-07-20] MEDS: SODIUM BICARBONATE 8.4% 150 MEQ in DEXTROSE 5% 1,000 ML IV SCH (16:42)
[2024-07-20 16:48] LABS: Potassium Random Urine 28.7 mmol/L
[2024-07-20 16:57] LABS: Amphetamines+Metham, Urine Neg (Neg); Barbiturates, Urine Neg (Neg); Benzodiazepine, Urine Neg (Neg); Cocaine, Urine Neg (Neg); Fentanyl, Urine Neg (Neg); MDMA (Ecstacy), Urine Neg (Neg); Marijuana, Urine Neg (Neg); Methadone, Urine Neg (Neg); Opiate, Urine Neg (Neg); Phencyclidine, Urine Neg (Neg)
[2024-07-20 16:57] LABS: Creatinine Urine Random 200.3 mg/dl
[2024-07-20 17:02] LABS: iSTAT Arterial Blood Gas HCO3 9 meg/L (19-24); iSTAT Arterial Blood Gas pCO2 19 mmHg (35-46); iSTAT Arterial Blood Gas pO2 97 mmHg (80-95); iSTAT Carbon Dioxide 10 mmol/L (24-31); iSTAT Hematocrit 20 % (37-47); iSTAT Hemoglobin 6.8 g/dl (12.0-16.0); iSTAT Potassium 3.7 mmol/L (3.3-5.0); iSTAT Sample Type Arterial; iSTAT Sodium 137 mmol/L (135-144)
[2024-07-20 17:02] LABS: iSTAT Blood Urea Nitrogen > 140 mg/dl (7-18); iSTAT Carbon Dioxide 13 mmol/L (24-31); iSTAT Chloride 103 mmol/L (101-112); iSTAT Creatinine > 20.0 mg/dl (0.6-1.3); iSTAT Glucose 122 mg/dl (70-99); iSTAT Hematocrit 21 % (37-47); iSTAT Hemoglobin 7.1 g/dl (12.0-16.0); iSTAT Ionized Calcium 1.04 mmol/l (1.12-1.32); iSTAT Potassium 4.8 mmol/L (3.3-5.0); iSTAT Sodium 135 mmol/L (135-144)
[2024-07-20] MEDS ORDERED: STAT IV Infusion **Titration per Protocol STA (17:12)
--- NOTE | 2024-07-20 17:14 | Electrocardiogram Report ---
Test Reason : Blood Pressure : */* mmHG Vent. Rate : 110 BPM Atrial Rate : 110 BPM P-R Int : 130 ms QRS Dur : 106 ms QT Int : 366 ms P-R-T Axes : 76 37 232 degrees QTcB Int : 495 ms Sinus tachycardia with Premature supraventricular complexes Incomplete right bundle branch block Abnormal ECG When compared with ECG of 19-Jun-2024 12:58, Premature supraventricular complexes are now Present ST now depressed in Anterolateral leads T wave inversion now evident in Inferior leads T wave inversion more evident in Lateral leads Confirmed by Mitchell Shen ([id number]) on 07/20/2024 5:13:41 PM Referred By: REFERRED SELF Confirmed By: Mitchell Shen
--- NOTE | 2024-07-20 17:26 | Gastrointestinal Consultation ---
Date of Consultation July 20, 2024 Assessment & Plan (1) Acute GI bleeding: GI bleeding with profound anemia, hypotension. Appears to be subacute with history of melenic stools over the last several days. The patient has acute renal failure with creatinine around 18 and metabolic acidosis. The patient is receiving blood, intravenous fluids, norepinephrine infusion. Pantoprazole infusion was started. Plavix was discontinued. When the patient is stabilized she will need prompt endoscopy likely tomorrow, July 21. There is also possibility that the patient will be transferred for an emergency dialysis. History of Present Illness Reason for Consultation: Melena, GI bleed, anemia. History of Present Illness The patient was brought to the emergency room by ambulance because of profound malaise and lethargy. For the last several days was passing melenic stools. In the emergency room the patient was found to be hypotensive with blood pressure around 80 systolic and heart rate 121. BUN was 140 and creatinine was 18.17. On June 19 BUN was 32 and creatinine 1.85. Hemoglobin was 6.8, on June 19 hemoglobin was 9.9. The patient denies abdominal pain, nausea, vomiting. She states that she was able to eat or drink. Noncontrast CT scan showed no acute abnormalities that could explain patient's symptoms. The patient was in the ER on June 19, 2024 with lacunar infarct. The patient was started on clopidogrel 75 mg approximately 3 days ago. Other than that she takes no anticoagulation. No prior history of GI bleeding. Uncertain if the patient had a prior EGD or colonoscopy. Allergies Allergy/AdvReac Type Severity Reaction Status Date / Time amoxicillin Allergy Unknown vomiting Verified 09/11/19 13:07 Home Medications Medication Instructions Recorded Confirmed Type atorvastatin 40 mg tablet 80 mg PO PM 08/25/19 07/20/24 History duloxetine 60 mg capsule,delayed 60 mg PO UD 08/25/19 07/20/24 History release (Cymbalta) pantoprazole 40 mg tablet,delayed 40 mg PO PM 08/25/19 07/20/24 History release allopurinol 100 mg tablet 100 mg PO DAILY 07/20/24 07/20/24 History bupropion HCl 300 mg 24 hr tablet, 300 mg PO DAILY 07/20/24 07/20/24 History extended release clopidogrel 75 mg tablet 75 mg PO DAILY 07/20/24 07/20/24 History famotidine 20 mg tablet 20 mg PO DAILY 07/20/24 07/20/24 History lisinopril 40 mg tablet 40 mg PO DAILY 07/20/24 07/20/24 History ondansetron HCl 4 mg tablet 4 mg PO Q6H PRN n/v 07/20/24 07/20/24 History potassium citrate 10 mEq (1,080 10 meq PO BID 07/20/24 07/20/24 History mg) tablet,extended release Patient History Medical History Degenerative disc disease Chronic back pain GERD (gastroesophageal reflux disease) Depression Cardiac murmur DOESNT FOLLOW CARDIOLOGY Hypertension Hyperlipidemia Surgical History History of lithotripsy Family History Mother Diabetes Father Lung cancer Social History Smoking Status: Former smoker Cigarettes Per Day: 1 PPD; Second Hand Exposure: Yes; Do You Dip or Chew Tobacco: No; Hx Alcohol Use: No Hx Substance Use: No Preferred Language: Mongolian Communication Ability: Effective Internet Manager Required: No Beliefs That Will Affect Care: None Current Living Situation: Alone Feels Safe at Home: Yes Assistive Devices: Glasses Review of Systems Review of Systems: Complains of profound fatigue and weakness. Denies pain. Denies neurological deficits. Physical Exam Physical Exam: Constitutional: Vitals as above with blood pressure 9/56 and heart rate 120. Oxygen saturation is 100% Appears acutely ill. The patient is awake, able to answer simple questions. Skin: Pale, multiple bruises, warm. Respiratory: normal respiratory effort, lungs clear to auscultation Cardiovascular: RRR, no murmur, no edema Gastrointestinal (Abdomen): normal bowel sounds, soft, nontender, no hepatosplenomegaly. Neurological: grossly no focal abnormalities, speech is intact. Results & Data Vital Signs (Past 12 Hours) Vital Signs Temp Pulse Pulse Resp BP BP Pulse Ox 07/20/24 17:03 36.4 C L 121 H 26 H 89/56 L 96 07/20/24 16:18 36.1 C L 118 H 27 H 82/55 L 100 07/20/24 15:48 35.9 C L 115 H 24 96/45 L 99 07/20/24 15:33 35.8 C L 115 H 25 H 81/51 L 98 07/20/24 15:15 35.8 C L 112 H 26 H 100/48 L 99 07/20/24 15:06 35.9 C L 07/20/24 14:55 112 H 26 H 87/49 L 95 07/20/24 14:45 113 H 27 H 85/51 L 94 07/20/24 14:30 113 H 27 H 97/56 L 94 07/20/24 14:26 108 H 07/20/24 14:25 33.2 C L 07/20/24 14:15 112 H 24 97/56 L 97 07/20/24 13:57 111 H 25 H 98/60 L 99 07/20/24 13:36 36.8 C 114 H 23 83/62 L 96 07/20/24 13:36 117 H 28 H 97 07/20/24 13:36 36.8 C 113 H 26 H 83/62 L 97 07/20/24 13:33 113 H 27 H 83/62 L 91 O2 Del Method 07/20/24 17:03 Room Air 07/20/24 16:18 07/20/24 15:48 07/20/24 15:33 07/20/24 15:15 07/20/24 15:06 07/20/24 14:55 Room Air 07/20/24 14:45 Room Air 07/20/24 14:30 Room Air 07/20/24 14:26 07/20/24 14:25 07/20/24 14:15 Room Air 07/20/24 13:57 Room Air 07/20/24 13:36 Room Air 07/20/24 13:36 Room Air 07/20/24 13:36 Room Air 07/20/24 13:33 Room Air PG Care Time/CCT Total # of Minutes Spent Total Time Spent with Patient: Total time spent is greater than 50% in coordination of care (as documented) at patient's floor/unit and/or counseling patient: Coding Level of Care Code 05042 INT INP/OBS CARE 3/75MIN Diagnoses Acute GI bleeding K92.2
[2024-07-20 17:51] LABS: Acetaminophen < 3 ug/ml (10-30); Salicylate < 3.0 mg/dl (3.0-30)
[2024-07-20 17:59] LABS: Anion Gap 26 (3-11); Calcium 8.4 mg/dl (8.6-10.3); Carbon Dioxide 12 mmol/L (21-32); Chloride 102 mmol/L (98-107); Creatinine Clr Calc Pharmacy 3.3 ml/min; Glucose 118 mg/dl (70-99(Fasting)); Sodium 140 mmol/L (136-145)
[2024-07-20 18:03] LABS: Blood Urea Nitrogen 162 mg/dl (6-23)
[2024-07-20] MEDS: ONDANSETRON INJ 2 MG/ML 2 ML VIAL IV STA ×2 (18:10→18:19)
[2024-07-20] MEDS: ACETAMINOPHEN 1000 MG/100 ML IV IV ONE (18:10)
[2024-07-20] MEDS: ACETAMINOPHEN 1,000 MG/100 ML VIAL IV STA (18:18)
[2024-07-20] MEDS: cefTRIAXone SODIUM 2,000 MG/50 ML BAG IV STA (18:20)
--- NOTE | 2024-07-20 18:27 | Nephrology Consultation ---
Date of Consultation July 20, 2024 Assessment & Plan (1) Acute renal failure: -2/ Severe volume depletion/ GI bleed. This has started to improve to aggressive Volume resuscition w/ Fluids and PRBC. -She has already received 1 u PRBC m 2nd unit is about to begin,Continue w/ sodium bicarbonate with 150 ml/hr for 1 lit then reduce the rate to 75 mls/ hr for another liter. -Stat Normal saline of 1 lit f/b- 150 mls/ hr( or more) to maitain MAP > 65, and systolic BP >110. - 18 mcg iv Desmopressin for platelet function. At the moment, her BP has improved, she has started to make urine, K is safe and her mental status has improved,Unlikley she will emergency dialysis overnight, please keep me updated ig her labs / clinical status detoriates in which case she may need transfer to higher center for Emergency dialysis Anemia -- Likle 2/ GI bleed . keep HB > 7 w/ blood transfusion - GI consult. - Desmopressin as above. Multiple round of co-ordination w/ ER Physicia, ICU attending and Hospitalist.I spent a total of 82 minutes reviewing notes, outpatient records, labs, medication, coordinating, documenting and providing care for this patient excluding time spent in the performance of separately billed services. (2) Kidney stones: History of Present Illness Reason for Consultation: Acute kidney injury, HAGMA, Severe Anemia History of Present Illness 68 yr old brought EMS w/complains of progressive weakness for some time and also has black tarry stool associated with abdominal discomfort and nausea ,vomiting, poor oral intake , epistaxis and decreased UOP for at least 2 weeks. She has had a CTA done with contrast on 25 of June and following that she had a BMP done on june which showed creatinine of 2.0 . The patient was started on clopidogrel 75 mg approximately 3 days ago for manuel CVA and Carotid artery stenosis. Appeared very pale and Volume depleted on review , ER labs were significant for Hb of 7/7 w/ BUN/cr- 183/18.7 w/ CO2 of 12, hB -7.7 She was hypotensive and tachycardic, w/ no UOP after foleys catherization.K was safe. She was aggressively fluid resuscitated with blood, sodium bicarbonate infusion , PPI infusion and normal saline.Her blood pressure improved w/ systolic of > 100. w/ MAP >65, and she has now started ( @ 100 mls, at the time of thsi note) of urine.Repaet BMP showed improvement in her renal functions w/ BUN/Scr - 162/15.50, K continued to be in the safe range.She appeared more alert and oriented. Patient waiting to be transferred to ICU for close monitoring Allergies Allergy/AdvReac Type Severity Reaction Status Date / Time amoxicillin Allergy Unknown vomiting Verified 09/11/19 13:07 Home Medications Medication Instructions Recorded Confirmed Type atorvastatin 40 mg tablet 80 mg PO PM 08/25/19 07/20/24 History duloxetine 60 mg capsule,delayed 60 mg PO UD 08/25/19 07/20/24 History release (Cymbalta) pantoprazole 40 mg tablet,delayed 40 mg PO PM 08/25/19 07/20/24 History release allopurinol 100 mg tablet 100 mg PO DAILY 07/20/24 07/20/24 History bupropion HCl 300 mg 24 hr tablet, 300 mg PO DAILY 07/20/24 07/20/24 History extended release clopidogrel 75 mg tablet 75 mg PO DAILY 07/20/24 07/20/24 History famotidine 20 mg tablet 20 mg PO DAILY 07/20/24 07/20/24 History lisinopril 40 mg tablet 40 mg PO DAILY 07/20/24 07/20/24 History ondansetron HCl 4 mg tablet 4 mg PO Q6H PRN n/v 07/20/24 07/20/24 History potassium citrate 10 mEq (1,080 10 meq PO BID 07/20/24 07/20/24 History mg) tablet,extended release Patient History Medical History Degenerative disc disease Chronic back pain GERD (gastroesophageal reflux disease) Depression Cardiac murmur DOESNT FOLLOW CARDIOLOGY Hypertension Hyperlipidemia Surgical History History of lithotripsy Family History Mother Diabetes Father Lung cancer Social History Smoking Status: Former smoker Cigarettes Per Day: 1 PPD; Second Hand Exposure: Yes; Do You Dip or Chew Tobacco: No; Hx Alcohol Use: No Hx Substance Use: No Preferred Language: Chadian Communication Ability: Effective Greenhouse Assistant Required: No Beliefs That Will Affect Care: None Current Living Situation: Alone Feels Safe at Home: Yes Assistive Devices: Glasses Review of Systems 2 Review of Systems: Looks pale, Volume depleted Physical Exam 2 Physical Exam: Pleasantly confused with abnormal hemodynamics with blood pressure of 89/56, tachycardia 121, respiration of09/15/2025 and afebrile She is saturating normally on room air Chestclear to auscultate bilaterally HeartS1, S2 regular Abdomenbenign and bowel sound present Extremitiesno edema CNSalert and awake. Pleasantly confused. Moving all limbs but generally weak Results & Data Vital Signs (Past 12 Hours) Vital Signs Temp Pulse Pulse Resp BP BP Pulse Ox 07/20/24 17:51 37.3 C 124 H 26 H 106/50 L 100 07/20/24 17:18 37.0 C 125 H 29 H 112/76 100 07/20/24 17:03 36.4 C L 121 H 26 H 89/56 L 96 07/20/24 16:18 36.1 C L 118 H 27 H 82/55 L 100 07/20/24 15:48 35.9 C L 115 H 24 96/45 L 99 07/20/24 15:33 35.8 C L 115 H 25 H 81/51 L 98 07/20/24 15:15 35.8 C L 112 H 26 H 100/48 L 99 07/20/24 15:06 35.9 C L 07/20/24 14:55 112 H 26 H 87/49 L 95 07/20/24 14:45 113 H 27 H 85/51 L 94 07/20/24 14:30 113 H 27 H 97/56 L 94 07/20/24 14:26 108 H 07/20/24 14:25 33.2 C L 07/20/24 14:15 112 H 24 97/56 L 97 07/20/24 13:57 111 H 25 H 98/60 L 99 07/20/24 13:36 36.8 C 114 H 23 83/62 L 96 07/20/24 13:36 117 H 28 H 97 07/20/24 13:36 36.8 C 113 H 26 H 83/62 L 97 07/20/24 13:33 113 H 27 H 83/62 L 91 O2 Del Method O2 Flow Rate 07/20/24 17:51 0 07/20/24 17:18 07/20/24 17:03 Room Air 07/20/24 16:18 07/20/24 15:48 07/20/24 15:33 07/20/24 15:15 07/20/24 15:06 07/20/24 14:55 Room Air 07/20/24 14:45 Room Air 07/20/24 14:30 Room Air 07/20/24 14:26 07/20/24 14:25 07/20/24 14:15 Room Air 07/20/24 13:57 Room Air 07/20/24 13:36 Room Air 07/20/24 13:36 Room Air 07/20/24 13:36 Room Air 07/20/24 13:33 Room Air Laboratory Results 07/20/24 13:44
--- NOTE | 2024-07-20 19:07 | Critical Care Consultation ---
Date of Consultation July 20, 2024 Assessment & Plan (1) Shock circulatory: (2) Acute GI bleeding: (3) High anion gap metabolic acidosis: (4) Metabolic encephalopathy: (5) Acute renal failure: (6) History of stroke: (7) Depression: Plan Reason Critically Ill: 68 YOF presents with few days to a week of nose bleeds and dark stools, found to be in shock with anion gap metabolic acidosis and ARF. Requiring blood and crystalloid infusions to improve her hypotension and shock. To ICU for continued resuscitation, following bleeding potential, correct acid base disturbance, and hemodynamic support. Neuro - HX of CVA, HX anxiety/depression CAM ICU: Negative - Patient reports newer diagnosis of CVA with reported carotid disease, however these records are not viewable in our system. Attempt to get admitting service to provide more information on this - She was recently started on Plavix and appears was given PPI as well- likely contributing to her bleeding unfortunately - Restart an antiplatelet when appropriate from a bleeding perspective- consider neurology consultation to weigh in once all information is available - Hold home mood stabilizing medications while NPO Cardiac - Shock- circulatory/hypovolemic/hemorrhagic, hx of HTN, HLD - Patient presented with shock in setting of hypovolemia likely worsened by GI bleeding- organ dysfunction of Heart and Renals - Hold antiplatelet medication - Transfuse PRBC for active bleeding, HGB 8 or more if further organ dysfunction or ECG changes worsened - Maintain at least 2 18g IV or larger - Continue Protonix infusion - PT/PTT/INR and Fibrinogen with next blood draw- replete if fibrinogen low - Replete Calcium with 3GM Calcium Gluconate IV as likely to lower with PRBC infusions as well - Continue with Isotonic Bicarb and Balanced Crystalloid infusion in regards to her hypovolemia and ARF- avoid further saline with current acidosis, and renal failure - Elevated HsCTNI- likely demand in the setting of anemia and hypotension - ECG with nonspecific changes and likely rate related changes - continue to follow HsCTNI however likely skewed with RF, but will follow serial ECGS - She is without chest pain or anginal symptoms at this time- no previous hx of CAD noted and no previous ECHO for review- ECHO in am. - Hold HOWARD- while NPO and until renal indices improve - Hold statin while NPO Respiratory - No acute needs - diurese if needed with volume resuscitation - currently no crackles and on room air GI - GI bleed unspecified. Hx GERD GI Bleed unspecified- however UGI is likely with report of dark stools, epigastric pain- CT a/p wihtout active hemorrhage noted however also without contrast secondary to ARF - Blatchford score of 17 - GI consultation appreciated - Continue with Protonix - Transfusion as ablove - NPO - No current hematemesis- if worsens will place NGT and notify GI- continue supportive care RENAL/LYTES - ARF- non-oliguric, High Anion Gap Metabolic Acidosis, - ARF in the setting of hypovolemic and hemorrhagic shock, in setting of HOWARD use - Hold HOWARD as above - Continue with metabolic support in form of balanced crystalloids- isotonic bicarb, plasmalyte, or LR - Would continue isotonic bicarb until bicarb is ~18 or PH > 7.4 - It is reassuring that her [employer] SUPERVISOR has downtrended following volume and she is making urine without no discoloration - UA is with hyaline Casts - Electrolytes stable, PH stable, volume status decreased- no urgent need for dialysis at this time - Nephrology consultation appreciated - CT a/p with multiple non obstructing stones- UA negative - NO acute needs ENDO - No acute needs - ICU hyperglycemic protocol HEME - As above - follow HGB, Platelet counts - antiplatelet medications once stabilized to be reviewed ID - UTI - Elevated WBC, afebrile, lactate negative - UA - LE +, Nit - , WBC 1 and epis, 1+ bacteria- await culture- continue Rocephin - with non obstructing renal stones noted - Blood cultures pending LINES/IV ACCESS - PIV, Kaufman Continue use of these lines - if hemorrhagic shock worsens with acute bleeding will need CVL as well as likely arterial line- follow DVT PROPHYLAXIS - SCDS, chemoprophylaxis contraindicated in setting of hemorrhagic shock and likely active GI bleed DISPO: ICU while requiring vasoactive medications, and until hemodynamics proven stable without further drop in HGB and improvement in acid/base status I have personally spent 50 minutes of critical care time in the direct management of this patient. This is a life/limb threatening event. This includes time spent evaluating patient, direct bedside care, chart review, placing orders, interpretation of diagnostic studies, discussion with consultants, patient, and family members, as well as other required patient management activities. This time is exclusive of all separately billable procedures, and separate from and in addition to any other critical care service time. Thank you for allowing us to participate in the care of this patient. Please refer to my attending physician's documentation for any further recommendations. History of Present Illness Reason for Consultation: shock- hypovolemic/hemorrhagic, ARF Requesting Physician: Madeleine Shin MD Attending Physician: Aleida Salvador MD History of Present Illness 68 YOF with medical history of: HTN, HLD, Kidney stones, CVA, Carotid Stenosis. Patient states that she recently was diagnosed with a small CVA and reports blockage of one of her neck arteries ~75%. For this recent diagnosis, she was placed on Plavix. Patient reports that after about 3 days of her Plavix, she started to have nose bleeds that were large and with clots, however she was able to get these to stop and they were not constant. She also then reported the last 4-5 days of dark black bowel movements that were mostly diarrhea, that has increased over the past 24 hours. This was not associated with any abdominal pain or n/v until the morning of . She did have one bout of vomiting that was orangish in color, and this was with a burning nagging pain in the epigastric area, which has improved since coming to the ER. She says that this morning she started to get dizzy when standing or moving and almost passed out. She called her sister to call 911 for her and bring her to the hospital. In the ER the patient had routine labs performed, to include troponin level. She was noted to have HGB level 7.7, WBC count of 14.1, Metabolic Acidosis with HCO3 of 9 and PH of 7.30 and base deficit of -17 and GAP of 26. , Renal function was noted with [employer] SUPERVISOR of 18 and BUN of 162. She was given 3.5 Liters of Crystalloid in the form of Normal Saline, 1 amp BICARB and started on isotonic bicarb infusion. She was given 2 units of PRBC and Levophed was initiated, however has been weaned off with resuscitation. GI was consulted as well as Nephrology. Patient was brought to the ICU with the remaining second unit of blood infusing, Protonix infusion. Will continue with volume resuscitation with balanced crystalloid solutions and PRBCs for hemodynamic support and HGB level of 8-10. Labs q4 hours. CODE: FULL Allergies Allergy/AdvReac Type Severity Reaction Status Date / Time amoxicillin Allergy Unknown vomiting Verified 09/11/19 13:07 Home Medications Medication Instructions Recorded Confirmed Type atorvastatin 40 mg tablet 80 mg PO PM 08/25/19 07/20/24 History duloxetine 60 mg capsule,delayed 60 mg PO UD 08/25/19 07/20/24 History release (Cymbalta) pantoprazole 40 mg tablet,delayed 40 mg PO PM 08/25/19 07/20/24 History release allopurinol 100 mg tablet 100 mg PO DAILY 07/20/24 07/20/24 History bupropion HCl 300 mg 24 hr tablet, 300 mg PO DAILY 07/20/24 07/20/24 History extended release clopidogrel 75 mg tablet 75 mg PO DAILY 07/20/24 07/20/24 History famotidine 20 mg tablet 20 mg PO DAILY 07/20/24 07/20/24 History lisinopril 40 mg tablet 40 mg PO DAILY 07/20/24 07/20/24 History ondansetron HCl 4 mg tablet 4 mg PO Q6H PRN n/v 07/20/24 07/20/24 History potassium citrate 10 mEq (1,080 10 meq PO BID 07/20/24 07/20/24 History mg) tablet,extended release Patient History Medical History Degenerative disc disease Chronic back pain GERD (gastroesophageal reflux disease) Depression Cardiac murmur DOESNT FOLLOW CARDIOLOGY Hypertension Hyperlipidemia Surgical History History of lithotripsy Family History Mother Diabetes Father Lung cancer Social History Smoking Status: Former smoker Cigarettes Per Day: 1 PPD; Second Hand Exposure: Yes; Do You Dip or Chew Tobacco: No; Hx Alcohol Use: No Hx Substance Use: No Preferred Language: Mozambican Communication Ability: Effective Work Counselor Required: No Beliefs That Will Affect Care: None Current Living Situation: Alone Feels Safe at Home: Yes Assistive Devices: None Review of Systems Review of Systems: REVIEW OF SYSTEMS: Constitutional: No fever, sweats or chills Eyes: (+) nose bleeds, No diplopia, no worsening or blurred vision ENT: normal hearing, no trouble swallowing Respiratory: No cough, sputum, dyspnea at rest or on exertion Cardiovascular: No chest pain, tightness or palpitations Abdomen: (+)pain, nausea, vomiting, diarrhea, change in stool color Musculoskeletal:NO change joint pain, calf pain, swelling Neurologic: No weakness, numbness/tingling, or balance problems Psychiatric: (+) anxiety or depression Skin: (+) bruising to arms without new worsening Physical Exam Physical Exam: PHYSICAL EXAM: General: awake, alert, conversant Head: Normocephalic, atraumatic ENT: PERRL, EOMI, no pharyngeal exudate, mucous membranes very dry Neuro: AAO x 3, speech clear and appropriate once lips and tongue moistened, strength intact bilaterally 5/5, sensation intact and equal all extremities and dermatomes, no pronator drift Chest: equal rise and fall of the chest, no accessory muscle use, no heaves or thrills, Clear to auscultation, on room air, Cardiac: Regular rate and rhythm, telemetry reviewed- sinus tachycardia no ectopy, skin warm dry, cap refill <3 seconds, peripheral pulses +2 no JVD, S1S2 grade I systolic Murmur no edema GI: NABS x 4 quadrants, soft, nontender to palpation, no rebound, guarding or tenderness : kaufman to gravity, no CVA tenderness, draining light melissa urine Psych: Normal mood and affect Skin: small ecchymotic areas to bilateral arms Results & Data Results & Data Vital Signs (Past 12 Hours) Vital Signs Temp Pulse Pulse Resp BP BP Pulse Ox 07/20/24 18:31 37.6 C H 121 H 28 H 115/50 L 100 07/20/24 18:31 37.6 C H 121 H 28 H 115/50 L 100 07/20/24 18:16 37.6 C H 122 H 23 101/68 100 07/20/24 17:51 37.3 C 124 H 26 H 106/50 L 100 07/20/24 17:18 37.0 C 125 H 29 H 112/76 100 07/20/24 17:03 36.4 C L 121 H 26 H 89/56 L 96 07/20/24 16:18 36.1 C L 118 H 27 H 82/55 L 100 07/20/24 15:48 35.9 C L 115 H 24 96/45 L 99 07/20/24 15:33 35.8 C L 115 H 25 H 81/51 L 98 07/20/24 15:15 35.8 C L 112 H 26 H 100/48 L 99 07/20/24 15:06 35.9 C L 07/20/24 14:55 112 H 26 H 87/49 L 95 07/20/24 14:45 113 H 27 H 85/51 L 94 07/20/24 14:30 113 H 27 H 97/56 L 94 07/20/24 14:26 108 H 07/20/24 14:25 33.2 C L 07/20/24 14:15 112 H 24 97/56 L 97 07/20/24 13:57 111 H 25 H 98/60 L 99 07/20/24 13:36 36.8 C 114 H 23 83/62 L 96 07/20/24 13:36 117 H 28 H 97 07/20/24 13:36 36.8 C 113 H 26 H 83/62 L 97 07/20/24 13:33 113 H 27 H 83/62 L 91 O2 Del Method O2 Flow Rate 07/20/24 18:31 07/20/24 18:31 Room Air 07/20/24 18:16 07/20/24 17:51 0 07/20/24 17:18 07/20/24 17:03 Room Air 07/20/24 16:18 07/20/24 15:48 07/20/24 15:33 07/20/24 15:15 07/20/24 15:06 07/20/24 14:55 Room Air 07/20/24 14:45 Room Air 07/20/24 14:30 Room Air 07/20/24 14:26 07/20/24 14:25 07/20/24 14:15 Room Air 07/20/24 13:57 Room Air 07/20/24 13:36 Room Air 07/20/24 13:36 Room Air 07/20/24 13:36 Room Air 07/20/24 13:33 Room Air Laboratory Results Abnormal lab results 07/20/24 07/20/24 07/20/24 Range/Units 13:44 13:46 13:48 WBC 14.13 H (4.8-10.8) K/ul RBC 2.60 L (4.20-5.40) M/uL Hgb 7.7 L (12.0-16.0) g/dl POC Hgb (12.0-16.0) g/dl Hct 22.5 L (37.0-47.0) % POC Hct (37-47) % RDW Coeff of Jolene 14.6 H (11.5-14.5) % Neut # (Auto) 12.35 H (1.40-6.50) K/uL Lymph # (Auto) 1.18 L (1.20-3.40) K/uL POC pH (7.35-7.45) POC pCO2 (35-46) mmHg POC pO2 (80-95) mmHg POC HCO3 (19-24) nanda/L POC Base Excess (-9-1.8) nanda/L POC ABG O2 Sat (90-95) % Chloride 97 L (98-107) mmol/L Carbon Dioxide 12 L (21-32) mmol/L POC Total CO2 (24-31) mmol/L Anion Gap 30 H (3-11) POC BUN (7-18) mg/dl BUN 183 H (6-23) mg/dl Creatinine 18.17 H* (0.6-1.2) mg/dl POC Creatinine (0.6-1.3) mg/dl Glucose 126 H (70-99(Fasting)) mg/dl POC Glucose (other) (70-99) mg/dl Osmolality 346 H (280-300) mOsm/kg Calcium (8.6-10.3) mg/dl POC Ioniz Calcium Tiara (1.12-1.32) mmol/l Troponin I High Sens 338.1 H* (0-14) pg/ml Urine Appearance (Clear) Urine Protein (Negative) Urine Ketones (Negative) Urine Blood (Negative) Ur Leukocyte Esterase (Negative) Urine WBC (Auto) (0-5) /hpf Urine RBC (Auto) (0-2) /hpf U Hyaline Cast (Auto) (0-2) /lpf U Epithel Cells (Auto) (0-2) /hpf Urine Bacteria (Auto) (None Seen) Hyaline Casts (None Presnt) /lpf Urine Osmolality (500-800) mOsm/kg POC Stool Occult Blood (Negative) Salicylates (3.0-30) mg/dl Acetaminophen (10-30) ug/ml Crossmatch See Detail See Detail 07/20/24 07/20/24 07/20/24 Range/Units 13:49 14:26 15:30 WBC (4.8-10.8) K/ul RBC (4.20-5.40) M/uL Hgb (12.0-16.0) g/dl POC Hgb 7.1 L (12.0-16.0) g/dl Hct (37.0-47.0) % POC Hct 21 L (37-47) % RDW Coeff of Jolene (11.5-14.5) % Neut # (Auto) (1.40-6.50) K/uL Lymph # (Auto) (1.20-3.40) K/uL POC pH (7.35-7.45) POC pCO2 (35-46) mmHg POC pO2 (80-95) mmHg POC HCO3 (19-24) nanda/L POC Base Excess (-9-1.8) nanda/L POC ABG O2 Sat (90-95) % Chloride (98-107) mmol/L Carbon Dioxide (21-32) mmol/L POC Total CO2 13 L (24-31) mmol/L Anion Gap (3-11) POC BUN > 140 H* (7-18) mg/dl BUN (6-23) mg/dl Creatinine (0.6-1.2) mg/dl POC Creatinine > 20.0 H* (0.6-1.3) mg/dl Glucose (70-99(Fasting)) mg/dl POC Glucose (other) 122 H (70-99) mg/dl Osmolality (280-300) mOsm/kg Calcium (8.6-10.3) mg/dl POC Ioniz Calcium Tiara 1.04 L (1.12-1.32) mmol/l Troponin I High Sens 240.4 H* D (0-14) pg/ml Urine Appearance Cloudy A (Clear) Urine Protein 2+ H (Negative) Urine Ketones Trace H (Negative) Urine Blood 2+ H (Negative) Ur Leukocyte Esterase 2+ H (Negative) Urine WBC (Auto) 11-20 H (0-5) /hpf Urine RBC (Auto) 11-20 H (0-2) /hpf U Hyaline Cast (Auto) >20 H (0-2) /lpf U Epithel Cells (Auto) 6-10 H (0-2) /hpf Urine Bacteria (Auto) 1+ H (None Seen) Hyaline Casts Present A (None Presnt) /lpf Urine Osmolality 359 L (500-800) mOsm/kg POC Stool Occult Blood (Negative) Salicylates (3.0-30) mg/dl Acetaminophen (10-30) ug/ml Crossmatch 07/20/24 07/20/24 07/20/24 Range/Units 16:49 17:06 Unknown WBC (4.8-10.8) K/ul RBC (4.20-5.40) M/uL Hgb (12.0-16.0) g/dl POC Hgb 6.8 L* (12.0-16.0) g/dl Hct (37.0-47.0) % POC Hct 20 L* (37-47) % RDW Coeff of Jolene (11.5-14.5) % Neut # (Auto) (1.40-6.50) K/uL Lymph # (Auto) (1.20-3.40) K/uL POC pH 7.30 L (7.35-7.45) POC pCO2 19 L (35-46) mmHg POC pO2 97 H (80-95) mmHg POC HCO3 9 L (19-24) nanda/L POC Base Excess -17.0 L (-9-1.8) nanda/L POC ABG O2 Sat 97.0 H (90-95) % Chloride (98-107) mmol/L Carbon Dioxide 12 L (21-32) mmol/L POC Total CO2 10 L (24-31) mmol/L Anion Gap 26 H (3-11) POC BUN (7-18) mg/dl BUN 162 H D (6-23) mg/dl Creatinine 15.30 H* D (0.6-1.2) mg/dl POC Creatinine (0.6-1.3) mg/dl Glucose 118 H (70-99(Fasting)) mg/dl POC Glucose (other) (70-99) mg/dl Osmolality (280-300) mOsm/kg Calcium 8.4 L (8.6-10.3) mg/dl POC Ioniz Calcium Tiara (1.12-1.32) mmol/l Troponin I High Sens (0-14) pg/ml Urine Appearance (Clear) Urine Protein (Negative) Urine Ketones (Negative) Urine Blood (Negative) Ur Leukocyte Esterase (Negative) Urine WBC (Auto) (0-5) /hpf Urine RBC (Auto) (0-2) /hpf U Hyaline Cast (Auto) (0-2) /lpf U Epithel Cells (Auto) (0-2) /hpf Urine Bacteria (Auto) (None Seen) Hyaline Casts (None Presnt) /lpf Urine Osmolality (500-800) mOsm/kg POC Stool Occult Blood Positive A (Negative) Salicylates < 3.0 L (3.0-30) mg/dl Acetaminophen < 3 L (10-30) ug/ml Crossmatch Diagnostic Findings Chest X-Ray 07/20/24 13:30 EXAM: Radiograph of the Chest 1 View INDICATION: History GI bleeding. TECHNIQUE: Frontal view of the chest. COMPARISON: 06/19/2024 FINDINGS: Lungs and pleural spaces: No consolidation or pulmonary edema. No pleural effusion or pneumothorax. Heart: Shape and configuration within normal limits allowing for technique. Mediastinum: Normal contour. Bones/joints: Degenerative changes noted throughout the spine. No acute osseous abnormality seen. Soft tissues: No abnormality noted. No radiopaque foreign body noted. Vasculature: Stable mildly calcified ectatic aorta. Upper abdomen: No free intraperitoneal air noted subjacent to either diaphragm. IMPRESSION: No acute cardiopulmonary disease. ACT 112: Negative or not required by law. Electronically signed by Radha Osullivan 07-20-2024 2:04 PM Abdomen/Pelvis CT 07/20/24 13:59 EXAM: CT Abdomen and Pelvis Without Intravenous Contrast INDICATION: GI bleeding. Acute renal failure. TECHNIQUE: Axial computed tomography images of the abdomen and pelvis without intravenous contrast. Sagittal and coronal reformatted images were created and reviewed. This CT exam was performed using one or more of the following dose reduction techniques: automated exposure control, adjustment of the mA and/or kV according to patient size, and/or use of iterative reconstruction technique. COMPARISON: No relevant prior studies available. FINDINGS: Limitations: Streak artifact from the patient's arms noted over the renal shadows and portions of the stomach. Lung bases: No abnormality noted. Pleural space: No visualized pleural effusion or pneumothorax. Heart: There is dense mitral annular calcification. Mediastinum: No abnormality noted. ABDOMEN: Liver: Lack of intravenous contrast limits detection of some masses. No abnormality noted. Gallbladder and bile ducts: No calcified stones or surrounding fluid. Pancreas: No pancreatic mass, calcification, inflammation or ductal dilation noted. Spleen: No significant abnormality noted. Adrenals: No significant abnormality noted. Kidneys and ureters: There are multiple nonobstructing stones in each kidney measuring from punctate in size to up to 5 mm. No hydronephrosis or ureteral stone. Exophytic 5 mm dense nodule from the medial lower pole left kidney. Stomach and bowel: The stomach contains layering fluid. Artifact limits assessment of the posterior wall. No gross abnormality. Scattered stool throughout the colon without obstruction, inflammation or thickening. PELVIS: Appendix: Well seen and appears normal. Bladder: Collapsed bladder contains a catheter. No gross acute abnormality. Reproductive: 1 cm calcified uterine fibroid noted. ABDOMEN and PELVIS: Intraperitoneal space: No free air. No significant fluid collection. Bones/joints: Degenerative changes noted in the scoliotic spine. No acute osseous abnormality noted. Soft tissues: No significant abnormality noted. Vasculature: Atherosclerotic calcification of the aorta and branches. No aneurysm. Lymph nodes: No pathologically enlarged lymph nodes. IMPRESSION: 1. Allowing for artifact, no intestinal obstruction or inflammatory process noted. 2. Bilateral nonobstructing kidney stones. ACT 112: Negative or not required by law. Electronically signed by Radha Osullivan 07-20-2024 3:[address] 07/20/24 13:59 EXAM: CT Head Without Intravenous Contrast INDICATION: Acute renal failure. GI bleeding. Confusion. TECHNIQUE: Axial computed tomography images of the head/brain without intravenous contrast. Sagittal and/or coronal reformats are provided. Sagittal and coronal reformatted images were created and reviewed. This CT exam was performed using one or more of the following dose reduction techniques: automated exposure control, adjustment of the mA and/or kV according to patient size, and/or use of iterative reconstruction technique. COMPARISON: 06/19/2024 FINDINGS: Limitations: None. Brain and extra-axial spaces: There is age appropriate cortical atrophy and chronic ischemic periventricular white matter hypodensity. No acute infarct, hemorrhage or mass noted. Bones/joints: No acute changes. Soft tissues: No significant abnormality noted. Vasculature: No acute abnormality noted. Sinuses: No layering fluid in the visualized portions of the paranasal sinuses. Mastoid air cells: No mastoid effusion. Orbits: No significant abnormality noted. IMPRESSION: Cerebral atrophy. No acute changes. ACT 112: Negative or not required by law. Electronically signed by Radha Osullivan 07-20-2024 3:03 PM Medications Administered Pantoprazole Sodium 40 mg/ (Dextrose) 100 mls @ 20 mls/hr IV Q5H ROC Stop: 08/19/24 14:29 Last Admin: 07/20/24 19:42 Dose: 8 mg/hr, 20 mls/hr Documented By: Infusion: 07/20/24 19:42 Dose: Infused Documented By: Admin: 07/20/24 15:04 Dose: 8 mg/hr, 20 mls/hr Documented By: HILARY Discontinued Medications Acetaminophen (Acetaminophen 1000 Mg/100 Ml Iv) Confirm Administered Dose 1,000 mg IV .STK-MED ONE Stop: 07/20/24 18:04 Last Admin: 07/20/24 18:10 Dose: 1,000 mg Documented By: MG Sodium Chloride (Nss) 1,000 mls @ 999 mls/hr IV .Q1H1M ONE Stop: 07/20/24 14:54 Last Infusion: 07/20/24 15:42 Dose: Infused Documented By: Admin: 07/20/24 14:36 Dose: 999 mls/hr Documented By: HILARY Famotidine (Pepcid 20mg Iv Push) 20 mg in 5 mls @ 2.5 mls/min IV NOW STA Stop: 07/20/24 14:00 Last Admin: 07/20/24 14:35 Dose: 2.5 mls/min Documented By: HILARY Pantoprazole Sodium 80 mg/ (Dextrose) 120 mls @ 480 mls/hr IV NOW ONE Stop: 07/20/24 14:13 Last Infusion: 07/20/24 15:00 Dose: Infused Documented By: Admin: 07/20/24 14:32 Dose: 480 mls/hr Documented By: HILARY Sodium Chloride (Nss) 1,000 mls @ 999 mls/hr IV .Q1H1M ONE Stop: 07/20/24 15:21 Last Infusion: 07/20/24 15:04 Dose: Infused Documented By: Admin: 07/20/24 14:00 Dose: 999 mls/hr Documented By: HILARY Sodium Chloride (Nss) 500 mls @ 999 mls/hr IV .Q31M ONE Stop: 07/20/24 16:31 Last Infusion: 07/20/24 18:18 Dose: Infused Documented By: Admin: 07/20/24 16:13 Dose: 999 mls/hr Documented By: MG Sodium Bicarbonate 150 meq/ (Dextrose) 1,150 mls @ 100 mls/hr IV .[id number] ROC Stop: 07/21/24 16:15 Last Admin: 07/20/24 16:42 Dose: 150 mls/hr Documented By: MG Ceftriaxone Sodium (Rocephin) 2,000 mg in 50 mls @ 100 mls/hr IV NOW STA Stop: 07/20/24 17:51 Last Infusion: 07/20/24 19:34 Dose: Infused Documented By: Admin: 07/20/24 18:20 Dose: 100 mls/hr Documented By: MG Sodium Chloride (Nss) 1,000 mls @ 999 mls/hr IV .Q1H1M ONE Stop: 07/20/24 18:57 Last Infusion: 07/20/24 19:34 Dose: Infused Documented By: Admin: 07/20/24 18:10 Dose: 999 mls/hr Documented By: MG Acetaminophen (Ofirmev) 1,000 mg in 100 mls @ 400 mls/hr IV NOW STA Stop: 07/20/24 18:22 Last Admin: 07/20/24 18:18 Dose: Not Given Documented By: CHRISTINE Sodium Chloride (Nss) 1,000 mls @ 999 mls/hr IV .Q1H1M ONE Stop: 07/20/24 19:09 Last Admin: 07/20/24 19:34 Dose: Not Given Documented By: LATOYA Ondansetron HCl (Ondansetron Inj 2 Mg/Ml 2 Ml Vial) Confirm Administered Dose 4 mg .ROUTE .STK-MED ONE Stop: 07/20/24 13:41 Last Admin: 07/20/24 13:45 Dose: 4 mg Documented By: HILARY Ondansetron HCl (Ondansetron Inj 2 Mg/Ml 2 Ml Vial) 4 mg IV NOW STA Stop: 07/20/24 17:53 Last Admin: 07/20/24 18:10 Dose: 4 mg Documented By: MG Ondansetron HCl (Ondansetron Inj 2 Mg/Ml 2 Ml Vial) 4 mg IV NOW STA Stop: 07/20/24 18:08 Last Admin: 07/20/24 18:19 Dose: Not Given Documented By: CHRISTINE Pantoprazole Sodium (Pantoprazole Bolus/Drip) 1 each IV NOW STA Stop: 07/20/24 14:00 Last Admin: 07/20/24 15:42 Dose: Not Given Documented By: MG Sodium Bicarbonate (Sodium Bicarb 8.4% Inj 50 Meq/50 Ml Syr) 50 meq IV NOW STA Stop: 07/20/24 16:38 Last Admin: 07/20/24 16:41 Dose: 50 meq Documented By: MG ECG Additional Comments: Sinus tachycardiawithPremature supraventricular complexes Incomplete right bundle branch block ST &T wave abnormality, consider inferolateral ischemia Abnormal ECG When compared with ECG [id number] 12:58, Premature supraventricular complexesare nowPresent ST now depressed inAnterolateral leads T wave inversion now evident inInferior leads T wave inversion more evident inLateral leads Confirmed by Mitchell Shen ([id number]) on 07/20/2024 5:13:41 PM Coding Level of Care Code 62737 CRITICAL CARE 1ST 30-74M Diagnoses Shock circulatory R57.9 Acute GI bleeding K92.2 High anion gap metabolic acidosis E87.29 Metabolic encephalopathy G93.41 Acute renal failure N17.9 History of stroke Z86.73 Depression F32.9
[2024-07-20] MEDS ORDERED: ACETAMINOPHEN 1,000 MG/100 ML VIAL IV PRN (19:13)
[2024-07-20] MEDS: ONDANSETRON INJ 2 MG/ML 2 ML VIAL IV SCH (19:51)
[2024-07-20] MEDS: CALCIUM GLUCONATE 1,000 MG/60 ML BAG IV SCH (19:51)
[2024-07-20] MEDS: SODIUM BICARBONATE 8.4% 75 MEQ in DEXTROSE 5% 1,000 ML IV SCH (20:10)
[2024-07-20] MEDS: ICU Protocol for HYPERglycemia SCH (20:10)
[2024-07-20] MEDS: SODIUM CHLORIDE 0.9% 1,000 ML IV SCH (20:39)
[2024-07-20] MEDS: LACTATED RINGER'S 250 ML IV ONE (21:53)
[2024-07-20 21:54] LABS: Fibrinogen 723 mg/dl (184-400); INR 1.1 (0.9-1.1); Partial Thromboplastin Time 26 Seconds (21-31); Prothrombin Time 11.4 Seconds (9.0-12.0)
[2024-07-20 23:18] LABS: HCO3 VBG 15 mmol/L; Oxygen Saturation VBG < 60.0 %; PCO2 VBG 25 mmHg (38-50); PO2 VBG 31 mmHg; pH VBG 7.37 (7.36-7.41)
[2024-07-20 23:46] LABS: Calcium 8.6 mg/dl (8.6-10.3); Creatinine Clr Calc Pharmacy 3.2 ml/min; Potassium 3.2 mmol/L (3.5-5.1)
[2024-07-21 00:02] LABS: BUN Creatinine Ratio 11.3 (10-20)
[2024-07-21] MEDS: MAGNESIUM SULFATE / D5W 1 GM/100 ML BAG IV SCH (00:24)
[2024-07-21] MEDS: PLASMA-LYTE A 1,000 ML IV SCH (02:42)
[2024-07-21 02:45] LABS: Hematocrit (blood only) 25.7 % (37.0-47.0)
[2024-07-21] MEDS ORDERED: STAT IV Infusion **Titration per Protocol STA ×2 (02:45→16:45)
[2024-07-21 05:03] LABS: Basophils # (auto) 0.03 K/uL (0.00-0.20); Basophils % (auto) 0.2 %; Eosinophils # (auto) 0.01 K/uL (0.00-0.50); Eosinophils % (auto) 0.1 %; Hematocrit (blood only) 24.6 % (37.0-47.0); Hemoglobin 8.9 g/dl (12.0-16.0); Immature Granulocytes # (auto) 0.08 K/uL (0.01-0.20); Immature Granulocytes % (auto) 0.6 %; Lymphocytes # (auto) 1.33 K/uL (1.20-3.40); Lymphocytes % (auto) 9.2 %; Mean Corpuscular Hemoglobin 30.7 pg (25.0-34.0); Mean Corpuscular Hgb Conc 36.2 g/dL (32.0-36.0); Mean Corpuscular Volume 84.8 fL (80.0-100.0); Mean Platelet Volume 12.3 fL (9.4-12.4); Monocytes # (auto) 1.38 K/uL (0.11-0.59); Monocytes % (auto) 9.6 %; Neutrophils # (auto) 11.59 K/uL (1.40-6.50); Neutrophils % (auto) 80.3 %; Nucleated RBC # (auto) 0.04 K/uL (0.00-0.12); Nucleated RBC % (auto) 0.3 %; Platelet Count 208 K/uL (130-400); RDW Coefficient of Variation 13.9 % (11.5-14.5); RDW Standard Deviation 42.9 fL (36.4-46.3); White Blood Count 14.42 K/ul (4.8-10.8)
[2024-07-21 05:21] LABS: Albumin Level 2.5 gm/dl (3.4-5.0); Bilirubin,Total 0.4 mg/dl (0.2-1.0); Creatinine Clr Calc Pharmacy 4.2 ml/min; Globulin 2.4 gm/dl (2.5-4.0); Magnesium 2.1 mg/dl (1.7-2.4); Potassium 2.9 mmol/L (3.5-5.1); Total Protein 4.9 gm/dl (6.0-8.3)
[2024-07-21] MEDS ORDERED: SODIUM CHLORIDE 0.9% 50 ML IV PRN (05:33)
[2024-07-21] MEDS ORDERED: SODIUM CHLORIDE 0.9% 100 ML IV PRN (05:33)
[2024-07-21] MEDS: POTASSIUM CHLORIDE / WTR 10 MEQ/100 ML PLCT IV ONE (06:03)
[2024-07-21 06:42] LABS: Troponin I High Sensitivity 413.8 pg/ml (0-14)
--- NOTE | 2024-07-21 09:10 | Gastroenterology Progress Note ---
Date of Service July 21, 2024 Assessment & Plan (1) Black stools: Plan: 68 year old critically ill female w/ history of HTN, HLD, GERD, carotid artery stenosis, CKD stage III, tobacco use disorder admitted to the ICU w/ acute renal failure superimposed on CKD, acute blood loss anemia secondary to dark tarry stools for weeks in the setting of recent initiation of plavix therapy due to recent carotid artery stenosis and CVA. Most recent BM was documented as brown. Will discuss timing of endoscopic evaluation with attending Maintain NPO status Continue conservative measures for now w/ BP support IV PPI bolus/drip Trend H&H Monitor and document GI output Transfuse PRN per primary service Hold all NSAIDs Plavix discontinued Appreciate nephrology input Appreciate inside sales engineer team input We appreciate assistance in the management of any serological abnormality and corrections to include: hemoglobin >7, INR <2, platelets >50,000, potassium levels >3.5 but <5.3, and sodium levels within 5 points of the reference range prior to endoscopic evaluation. I spent a total of 55 minutes on the date of service in review of patient's record, and previously obtained information in person and appropriate medical visit, discussion and education of plan, with patient and/or caregiver, placing orders for tests/referral/procedures as medically necessary and documentation of pertinent clinical information in patient's medical records for their visit today. Rectal examination around 11:15 AM rounds with attending, Dr. Almonte revealed brown stool. She now endorses severe nose bleeds since starting Plavix. No plan for EGD today. May have full liquids from a GI standpoint. Trend H&H. We will re-evaluate this afternoon. Await echo. Continue measures above. Admission and Anticipated Discharge Date Admission Date: July 20, 2024 Supervising Physician Co-Signing Physician Notes I examined the patient and reviewed the medical record, laboratory data and imaging studies. I agree with the assessment and plan of care as suggested by the advanced practice provider. Patient with hypovolemic shock at the current time there is no evidence of GI bleeding I did a rectal myself and there was brown stool as per the nurse he had a brown bowel movement earlier also she has not had any hematemesis or hematochezia or melena the in the recently at the current time I would monitor his H&H every 8 hours continue with PPI and will plan endoscopy when metabolically more stable or if there is any evidence of acute bleeding thank you for allowing us to part in the care of your patient we will continue to follow her with you Subjective Pt was seen and evaluated, chart reviewed. Currently having bedside cardiac study. Denies abd pain. Reports last BM was this AM, this was documented as brown. However, two previous stools were documented as dark red blood. She was endorsing black stool prior to admission. She was started on Plavix about 1-2 weeks ago No NSAIDs HGB 8.9 S/P 3 units RBCs INR 1.1, PLT 208 CTAP 2023: Allowing for artifact, no intestinal obstruction or inflammatory process noted. Bilateral nonobstructing kidney stones. No previous EGD/Colon on [facility] or [facility] EHR. Review of Systems Review of Systems: All other findings negative except as noted in HPI. Physical Exam Constitutional: WD/WN, vitals as above Respiratory: normal respiratory effort Cardiovascular: Rate/Rhythm: regular rate and regular rhythm Gastrointestinal (Abdomen): Inspection/Auscultation: normal bowel sounds Percussion/Palpation: abdomen soft; abdomen nontender, no guarding and abdomen not rigid Skin: no rashes, warm and dry Results & Data Results & Data Vital Signs (Past 12 Hours) Vital Signs Temp Pulse Resp BP Pulse Ox Pulse Ox O2 Del Method 07/21/24 08:44 99 07/21/24 08:37 Room Air 07/21/24 08:36 36.8 C 108 H 18 87 L 07/21/24 08:30 97/49 L 07/21/24 08:27 36.9 C 97 H 27 H 99 07/21/24 08:02 98/60 L 07/21/24 08:00 36.9 C 104 H 20 98 07/21/24 08:00 Room Air 07/21/24 07:45 36.9 C 102 H 24 102/65 99 07/21/24 07:45 36.9 C 104 H 26 H 102/65 95 07/21/24 07:39 36.9 C 108 H 20 99 07/21/24 07:33 36.9 C 105 H 18 100 07/21/24 07:31 101/55 L 07/21/24 07:31 101/55 L 07/21/24 07:30 36.9 C 116 H 22 98 07/21/24 07:24 93 07/21/24 07:15 36.9 C 102 H 81/39 L 07/21/24 07:12 26 H 97 07/21/24 07:03 21 97 07/21/24 07:00 98/54 L 07/21/24 07:00 98/54 L 07/21/24 06:54 36.9 C 106 H 24 96 07/21/24 06:50 36.9 C 105 H 24 99/53 L 97 07/21/24 06:45 36.9 C 106 H 25 H 98 07/21/24 06:20 36.9 C 103 H 25 H 83/47 L 97 07/21/24 06:05 36.9 C 105 H 24 93/56 L 95 07/21/24 05:48 37.0 C 113 H 23 100/46 L 97 07/21/24 04:57 37.1 C 108 H 23 96/52 L 97 Room Air 07/21/24 04:30 37.1 C 109 H 25 H 101/43 L 98 Room Air 07/21/24 03:45 37.1 C 109 H 16 92/55 L 99 Room Air 07/21/24 03:30 90/52 L 07/21/24 03:30 37.1 C 107 H 22 90/52 L 99 Room Air 07/21/24 03:00 37.1 C 106 H 24 98/53 L 99 Room Air 07/21/24 02:30 37.2 C 106 H 24 103/55 L 100 Room Air 07/21/24 02:30 110 H 26 H 85/49 L 100 Room Air 07/21/24 02:00 37.3 C 112 H 24 113/61 99 Room Air 07/21/24 01:32 37.4 C 115 H 21 98/62 L 98 Room Air 07/21/24 00:54 37.3 C 115 H 24 107/53 L 100 Room Air 07/21/24 00:30 37.4 C 115 H 24 92/43 L 99 Room Air 07/21/24 00:00 37.5 C 117 H 24 94/47 L 99 Room Air 07/20/24 23:30 37.5 C 122 H 25 H 98/52 L 99 Room Air 07/20/24 23:00 37.4 C 120 H 25 H 124/55 L 98 Room Air 07/20/24 22:45 37.5 C 121 H 29 H 124/55 L 97 Room Air 07/20/24 22:30 37.5 C 122 H 28 H 116/58 L 98 Room Air 07/20/24 21:51 37.5 C 124 H 27 H 119/66 100 Room Air 07/20/24 21:03 37.5 C 125 H 21 103/77 99 Room Air O2 Del Method 07/21/24 08:44 Room Air 07/21/24 08:37 07/21/24 08:36 07/21/24 08:30 07/21/24 08:27 07/21/24 08:02 07/21/24 08:00 07/21/24 08:00 07/21/24 07:45 07/21/24 07:45 07/21/24 07:39 07/21/24 07:33 07/21/24 07:31 07/21/24 07:31 07/21/24 07:30 07/21/24 07:24 07/21/24 07:15 07/21/24 07:12 07/21/24 07:03 07/21/24 07:00 07/21/24 07:00 07/21/24 06:54 07/21/24 06:50 07/21/24 06:45 07/21/24 06:20 07/21/24 06:05 07/21/24 05:48 07/21/24 04:57 07/21/24 04:30 07/21/24 03:45 07/21/24 03:30 07/21/24 03:30 07/21/24 03:00 07/21/24 02:30 07/21/24 02:30 07/21/24 02:00 07/21/24 01:32 07/21/24 00:54 07/21/24 00:30 07/21/24 00:00 07/20/24 23:30 07/20/24 23:00 07/20/24 22:45 07/20/24 22:30 07/20/24 21:51 07/20/24 21:03 Laboratory Results 07/21/24 07/21/24 07/21/24 Range/Units 07:03 04:45 02:21 WBC 14.42 H (4.8-10.8) K/ul RBC 2.90 L (4.20-5.40) M/uL Hgb 8.9 L 9.0 L (12.0-16.0) g/dl POC Hgb (12.0-16.0) g/dl Hct 24.6 L 25.7 L (37.0-47.0) % POC Hct (37-47) % MCV 84.8 (80.0-100.0) fL MCH 30.7 (25.0-34.0) pg MCHC 36.2 H (32.0-36.0) g/dL RDW Std Deviation 42.9 (36.4-46.3) fL RDW Coeff of Jolene 13.9 (11.5-14.5) % Plt Count 208 (130-400) K/uL MPV 12.3 (9.4-12.4) fL Immature Gran % (Auto) 0.6 % Neut % (Auto) 80.3 % Lymph % (Auto) 9.2 % Loup % (Auto) 9.6 % Eos % (Auto) 0.1 % Baso % (Auto) 0.2 % Neut # (Auto) 11.59 H (1.40-6.50) K/uL Lymph # (Auto) 1.33 (1.20-3.40) K/uL Loup # (Auto) 1.38 H (0.11-0.59) K/uL Eos # (Auto) 0.01 (0.00-0.50) K/uL Baso # (Auto) 0.03 (0.00-0.20) K/uL Immature Gran # (Auto) 0.08 (0.01-0.20) K/uL Absolute Nucleated RBC 0.04 (0.00-0.12) K/uL Nucleated RBC % (auto) 0.3 % Polychromasia Echinocytes PT (9.0-12.0) Seconds INR (0.9-1.1) APTT (21-31) Seconds PTT Ratio Fibrinogen (184-400) mg/dl Specimen Type POC pH (7.35-7.45) POC pCO2 (35-46) mmHg POC pO2 (80-95) mmHg POC HCO3 (19-24) nanda/L POC Base Excess (-9-1.8) nanda/L POC ABG O2 Sat (90-95) % VBG pH 7.37 (7.36-7.41) VBG pCO2 (38-50) mmHg VBG pO2 mmHg VBG HCO3 mmol/L VBG O2 Saturation % VBG Base Excess mEq/L POC Sodium (135-144) mmol/L Sodium 142 (136-145) mmol/L POC Potassium (3.3-5.0) mmol/L Potassium 2.9 L (3.5-5.1) mmol/L POC Chloride (101-112) mmol/L Chloride 107 (98-107) mmol/L Carbon Dioxide 16 L (21-32) mmol/L POC Total CO2 (24-31) mmol/L Anion Gap 19 H (3-11) POC Anion Gap (16-25) mmol/L POC BUN (7-18) mg/dl BUN 148 H (6-23) mg/dl Creatinine 12.33 H* D (0.6-1.2) mg/dl POC Creatinine (0.6-1.3) mg/dl Est Cr Clr Drug Dosing 4.2 ml/min eGFR 2.99 BUN/Creatinine Ratio 12.0 (10-20) Glucose 130 H (70-99(Fasting)) mg/dl POC Glucose 127 H (70-99) mg/dl POC Glucose (other) (70-99) mg/dl Osmolality (280-300) mOsm/kg Lactate (0.4-2.0) mmol/L Calcium 8.0 L (8.6-10.3) mg/dl POC Ioniz Calcium Tiara (1.12-1.32) mmol/l Magnesium 2.1 (1.7-2.4) mg/dl Total Bilirubin 0.4 (0.2-1.0) mg/dl AST 29 (13-39) U/L ALT 15 (7-52) U/L Alkaline Phosphatase 51 (34-104) U/L Troponin I High Sens 413.8 H* 385.8 H* D (0-14) pg/ml Total Protein 4.9 L D (6.0-8.3) gm/dl Albumin 2.5 L (3.4-5.0) gm/dl Globulin 2.4 L (2.5-4.0) gm/dl Albumin/Globulin Ratio 1.0 (0.9-2) Urine Color Urine Appearance (Clear) Urine pH (4.5-7.5) Ur Specific [place] (1.000-1.030) Urine Protein (Negative) Urine Glucose (UA) (Negative) Urine Ketones (Negative) Urine Blood (Negative) Urine Nitrite (Negative) Urine Bilirubin (Negative) Urine Urobilinogen (Negative) Ur Leukocyte Esterase (Negative) Urine WBC (Auto) (0-5) /hpf Urine RBC (Auto) (0-2) /hpf U Hyaline Cast (Auto) (0-2) /lpf U Epithel Cells (Auto) (0-2) /hpf Urine Bacteria (Auto) (None Seen) Hyaline Casts (None Presnt) /lpf Urine Osmolality (500-800) mOsm/kg Ur Random Creatinine mg/dl Ur Random Sodium mmol/L Ur Random Potassium mmol/L Ur Random Chloride mmol/L Nasal Screen MRSA (PCR) (Negative) POC Stool Occult Blood (Negative) Salicylates (3.0-30) mg/dl Urine Opiates Screen (Neg) Ur Methadone, Qual (Neg) Urine Fentanyl Screen (Neg) Acetaminophen (10-30) ug/ml Urine Barbiturates (Neg) Ur Phencyclidine (PCP) (Neg) U Amphetamin/Meth Scrn (Neg) MDMA (Ecstasy) Screen (Neg) U Benzodiazepines Scrn (Neg) Ur Cocaine Metabolite (Neg) U Marijuana (THC) Screen (Neg) Ethyl Alcohol mg/dL (<10.0) mg/dl Blood Type Blood Type Recheck Antibody Screen Crossmatch 07/20/24 07/20/24 07/20/24 Range/Units Unknown 23:03 21:03 WBC (4.8-10.8) K/ul RBC (4.20-5.40) M/uL Hgb 9.9 L (12.0-16.0) g/dl POC Hgb (12.0-16.0) g/dl Hct (37.0-47.0) % POC Hct (37-47) % MCV (80.0-100.0) fL MCH (25.0-34.0) pg MCHC (32.0-36.0) g/dL RDW Std Deviation (36.4-46.3) fL RDW Coeff of Jolene (11.5-14.5) % Plt Count (130-400) K/uL MPV (9.4-12.4) fL Immature Gran % (Auto) % Neut % (Auto) % Lymph % (Auto) % [place]oup % (Auto) % Eos % (Auto) % Baso % (Auto) % Neut # (Auto) (1.40-6.50) K/uL Lymph # (Auto) (1.20-3.40) K/uL Loup # (Auto) (0.11-0.59) K/uL Eos # (Auto) (0.00-0.50) K/uL Baso # (Auto) (0.00-0.20) K/uL Immature Gran # (Auto) (0.01-0.20) K/uL Absolute Nucleated RBC (0.00-0.12) K/uL Nucleated RBC % (auto) % Polychromasia Echinocytes PT 11.4 (9.0-12.0) Seconds INR 1.1 (0.9-1.1) APTT 26 (21-31) Seconds PTT Ratio 1.0 Fibrinogen 723 H (184-400) mg/dl Specimen Type POC pH (7.35-7.45) POC pCO2 (35-46) mmHg POC pO2 (80-95) mmHg POC HCO3 (19-24) nanda/L POC Base Excess (-9-1.8) nanda/L POC ABG O2 Sat (90-95) % VBG pH 7.37 (7.36-7.41) VBG pCO2 25 L (38-50) mmHg VBG pO2 31 mmHg VBG HCO3 15 mmol/L VBG O2 Saturation < 60.0 % VBG Base Excess -9.0 mEq/L POC Sodium (135-144) mmol/L Sodium 141 (136-145) mmol/L POC Potassium (3.3-5.0) mmol/L Potassium 3.2 L (3.5-5.1) mmol/L POC Chloride (101-112) mmol/L Chloride 105 (98-107) mmol/L Carbon Dioxide 15 L (21-32) mmol/L POC Total CO2 (24-31) mmol/L Anion Gap 21 H (3-11) POC Anion Gap (16-25) mmol/L POC BUN (7-18) mg/dl BUN 153 H (6-23) mg/dl Creatinine 13.60 H* D (0.6-1.2) mg/dl POC Creatinine (0.6-1.3) mg/dl Est Cr Clr Drug Dosing 3.2 ml/min eGFR 2.66 BUN/Creatinine Ratio 11.3 (10-20) Glucose 160 H (70-99(Fasting)) mg/dl POC Glucose (70-99) mg/dl POC Glucose (other) (70-99) mg/dl Osmolality (280-300) mOsm/kg Lactate (0.4-2.0) mmol/L Calcium 8.6 (8.6-10.3) mg/dl POC Ioniz Calcium Tiara (1.12-1.32) mmol/l Magnesium (1.7-2.4) mg/dl Total Bilirubin (0.2-1.0) mg/dl AST (13-39) U/L ALT (7-52) U/L Alkaline Phosphatase (34-104) U/L Troponin I High Sens (0-14) pg/ml Total Protein (6.0-8.3) gm/dl Albumin (3.4-5.0) gm/dl Globulin (2.5-4.0) gm/dl Albumin/Globulin Ratio (0.9-2) Urine Color Urine Appearance (Clear) Urine pH (4.5-7.5) Ur Specific [place] (1.000-1.030) Urine Protein (Negative) Urine Glucose (UA) (Negative) Urine Ketones (Negative) Urine Blood (Negative) Urine Nitrite (Negative) Urine Bilirubin (Negative) Urine Urobilinogen (Negative) Ur Leukocyte Esterase (Negative) Urine WBC (Auto) (0-5) /hpf Urine RBC (Auto) (0-2) /hpf U Hyaline Cast (Auto) (0-2) /lpf U Epithel Cells (Auto) (0-2) /hpf Urine Bacteria (Auto) (None Seen) Hyaline Casts (None Presnt) /lpf Urine Osmolality (500-800) mOsm/kg Ur Random Creatinine mg/dl Ur Random Sodium mmol/L Ur Random Potassium mmol/L Ur Random Chloride mmol/L Nasal Screen MRSA (PCR) (Negative) POC Stool Occult Blood Positive A (Negative) Salicylates (3.0-30) mg/dl Urine Opiates Screen (Neg) Ur Methadone, Qual (Neg) Urine Fentanyl Screen (Neg) Acetaminophen (10-30) ug/ml Urine Barbiturates (Neg) Ur Phencyclidine (PCP) (Neg) U Amphetamin/Meth Scrn (Neg) MDMA (Ecstasy) Screen (Neg) U Benzodiazepines Scrn (Neg) Ur Cocaine Metabolite (Neg) U Marijuana (THC) Screen (Neg) Ethyl Alcohol mg/dL (<10.0) mg/dl Blood Type Blood Type Recheck Antibody Screen Crossmatch 07/20/24 07/20/24 07/20/24 Range/Units 20:07 18:50 17:53 WBC (4.8-10.8) K/ul RBC (4.20-5.40) M/uL Hgb (12.0-16.0) g/dl POC Hgb (12.0-16.0) g/dl Hct (37.0-47.0) % POC Hct (37-47) % MCV (80.0-100.0) fL MCH (25.0-34.0) pg MCHC (32.0-36.0) g/dL RDW Std Deviation (36.4-46.3) fL RDW Coeff of Jolene (11.5-14.5) % Plt Count (130-400) K/uL MPV (9.4-12.4) fL Immature Gran % (Auto) % Neut % (Auto) % Lymph % (Auto) % [place]oup % (Auto) % Eos % (Auto) % Baso % (Auto) % Neut # (Auto) (1.40-6.50) K/uL Lymph # (Auto) (1.20-3.40) K/uL [place]oup # (Auto) (0.11-0.59) K/uL Eos # (Auto) (0.00-0.50) K/uL Baso # (Auto) (0.00-0.20) K/uL Immature Gran # (Auto) (0.01-0.20) K/uL Absolute Nucleated RBC (0.00-0.12) K/uL Nucleated RBC % (auto) % Polychromasia Echinocytes PT (9.0-12.0) Seconds INR (0.9-1.1) APTT (21-31) Seconds PTT Ratio Fibrinogen (184-400) mg/dl Specimen Type POC pH (7.35-7.45) POC pCO2 (35-46) mmHg POC pO2 (80-95) mmHg POC HCO3 (19-24) nanda/L POC Base Excess (-9-1.8) nanda/L POC ABG O2 Sat (90-95) % VBG pH (7.36-7.41) VBG pCO2 (38-50) mmHg VBG pO2 mmHg VBG HCO3 mmol/L VBG O2 Saturation % VBG Base Excess mEq/L POC Sodium (135-144) mmol/L Sodium (136-145) mmol/L POC Potassium (3.3-5.0) mmol/L Potassium 3.9 D (3.5-5.1) mmol/L POC Chloride (101-112) mmol/L Chloride (98-107) mmol/L Carbon Dioxide (21-32) mmol/L POC Total CO2 (24-31) mmol/L Anion Gap (3-11) POC Anion Gap (16-25) mmol/L POC BUN (7-18) mg/dl BUN (6-23) mg/dl Creatinine (0.6-1.2) mg/dl POC Creatinine (0.6-1.3) mg/dl Est Cr Clr Drug Dosing ml/min eGFR BUN/Creatinine Ratio (10-20) Glucose (70-99(Fasting)) mg/dl POC Glucose 159 H (70-99) mg/dl POC Glucose (other) (70-99) mg/dl Osmolality (280-300) mOsm/kg Lactate (0.4-2.0) mmol/L Calcium (8.6-10.3) mg/dl POC Ioniz Calcium Tiara (1.12-1.32) mmol/l Magnesium (1.7-2.4) mg/dl Total Bilirubin (0.2-1.0) mg/dl AST (13-39) U/L ALT (7-52) U/L Alkaline Phosphatase (34-104) U/L Troponin I High Sens (0-14) pg/ml Total Protein (6.0-8.3) gm/dl Albumin (3.4-5.0) gm/dl Globulin (2.5-4.0) gm/dl Albumin/Globulin Ratio (0.9-2) Urine Color Urine Appearance (Clear) Urine pH (4.5-7.5) Ur Specific [place] (1.000-1.030) Urine Protein (Negative) Urine Glucose (UA) (Negative) Urine Ketones (Negative) Urine Blood (Negative) Urine Nitrite (Negative) Urine Bilirubin (Negative) Urine Urobilinogen (Negative) Ur Leukocyte Esterase (Negative) Urine WBC (Auto) (0-5) /hpf Urine RBC (Auto) (0-2) /hpf U Hyaline Cast (Auto) (0-2) /lpf U Epithel Cells (Auto) (0-2) /hpf Urine Bacteria (Auto) (None Seen) Hyaline Casts (None Presnt) /lpf Urine Osmolality (500-800) mOsm/kg Ur Random Creatinine mg/dl Ur Random Sodium mmol/L Ur Random Potassium mmol/L Ur Random Chloride mmol/L Nasal Screen MRSA (PCR) Negative (Negative) POC Stool Occult Blood (Negative) Salicylates (3.0-30) mg/dl Urine Opiates Screen (Neg) Ur Methadone, Qual (Neg) Urine Fentanyl Screen (Neg) Acetaminophen (10-30) ug/ml Urine Barbiturates (Neg) Ur Phencyclidine (PCP) (Neg) U Amphetamin/Meth Scrn (Neg) MDMA (Ecstasy) Screen (Neg) U Benzodiazepines Scrn (Neg) Ur Cocaine Metabolite (Neg) U Marijuana (THC) Screen (Neg) Ethyl Alcohol mg/dL (<10.0) mg/dl Blood Type Blood Type Recheck Antibody Screen Crossmatch 07/20/24 07/20/24 07/20/24 Range/Units 17:06 16:49 15:30 WBC (4.8-10.8) K/ul RBC (4.20-5.40) M/uL Hgb (12.0-16.0) g/dl POC Hgb 6.8 L* (12.0-16.0) g/dl Hct (37.0-47.0) % POC Hct 20 L* (37-47) % MCV (80.0-100.0) fL MCH (25.0-34.0) pg MCHC (32.0-36.0) g/dL RDW Std Deviation (36.4-46.3) fL RDW Coeff of Jolene (11.5-14.5) % Plt Count (130-400) K/uL MPV (9.4-12.4) fL Immature Gran % (Auto) % Neut % (Auto) % Lymph % (Auto) % [place] % (Auto) % Eos % (Auto) % Baso % (Auto) % Neut # (Auto) (1.40-6.50) K/uL Lymph # (Auto) (1.20-3.40) K/uL [place] # (Auto) (0.11-0.59) K/uL Eos # (Auto) (0.00-0.50) K/uL Baso # (Auto) (0.00-0.20) K/uL Immature Gran # (Auto) (0.01-0.20) K/uL Absolute Nucleated RBC (0.00-0.12) K/uL Nucleated RBC % (auto) % Polychromasia Echinocytes PT (9.0-12.0) Seconds INR (0.9-1.1) APTT (21-31) Seconds PTT Ratio Fibrinogen (184-400) mg/dl Specimen Type Arterial POC pH 7.30 L (7.35-7.45) POC pCO2 19 L (35-46) mmHg POC pO2 97 H (80-95) mmHg POC HCO3 9 L (19-24) nanda/L POC Base Excess -17.0 L (-9-1.8) nanda/L POC ABG O2 Sat 97.0 H (90-95) % VBG pH (7.36-7.41) VBG pCO2 (38-50) mmHg VBG pO2 mmHg VBG HCO3 mmol/L VBG O2 Saturation % VBG Base Excess mEq/L POC Sodium 137 (135-144) mmol/L Sodium 140 (136-145) mmol/L POC Potassium 3.7 (3.3-5.0) mmol/L Potassium TNP (3.5-5.1) mmol/L POC Chloride (101-112) mmol/L Chloride 102 (98-107) mmol/L Carbon Dioxide 12 L (21-32) mmol/L POC Total CO2 10 L (24-31) mmol/L Anion Gap 26 H (3-11) POC Anion Gap (16-25) mmol/L POC BUN (7-18) mg/dl BUN 162 H D (6-23) mg/dl Creatinine 15.30 H* D (0.6-1.2) mg/dl POC Creatinine (0.6-1.3) mg/dl Est Cr Clr Drug Dosing 3.3 ml/min eGFR 2.31 BUN/Creatinine Ratio TNP (10-20) Glucose 118 H (70-99(Fasting)) mg/dl POC Glucose (70-99) mg/dl POC Glucose (other) (70-99) mg/dl Osmolality (280-300) mOsm/kg Lactate 1.4 (0.4-2.0) mmol/L Calcium 8.4 L (8.6-10.3) mg/dl POC Ioniz Calcium Tiara (1.12-1.32) mmol/l Magnesium (1.7-2.4) mg/dl Total Bilirubin (0.2-1.0) mg/dl AST (13-39) U/L ALT (7-52) U/L Alkaline Phosphatase (34-104) U/L Troponin I High Sens 240.4 H* D (0-14) pg/ml Total Protein (6.0-8.3) gm/dl Albumin (3.4-5.0) gm/dl Globulin (2.5-4.0) gm/dl Albumin/Globulin Ratio (0.9-2) Urine Color Urine Appearance (Clear) Urine pH (4.5-7.5) Ur Specific [place] (1.000-1.030) Urine Protein (Negative) Urine Glucose (UA) (Negative) Urine Ketones (Negative) Urine Blood (Negative) Urine Nitrite (Negative) Urine Bilirubin (Negative) Urine Urobilinogen (Negative) Ur Leukocyte Esterase (Negative) Urine WBC (Auto) (0-5) /hpf Urine RBC (Auto) (0-2) /hpf U Hyaline Cast (Auto) (0-2) /lpf U Epithel Cells (Auto) (0-2) /hpf Urine Bacteria (Auto) (None Seen) Hyaline Casts (None Presnt) /lpf Urine Osmolality (500-800) mOsm/kg Ur Random Creatinine mg/dl Ur Random Sodium mmol/L Ur Random Potassium mmol/L Ur Random Chloride mmol/L Nasal Screen MRSA (PCR) (Negative) POC Stool Occult Blood (Negative) Salicylates < 3.0 L (3.0-30) mg/dl Urine Opiates Screen (Neg) Ur Methadone, Qual (Neg) Urine Fentanyl Screen (Neg) Acetaminophen < 3 L (10-30) ug/ml Urine Barbiturates (Neg) Ur Phencyclidine (PCP) (Neg) U Amphetamin/Meth Scrn (Neg) MDMA (Ecstasy) Screen (Neg) U Benzodiazepines Scrn (Neg) Ur Cocaine Metabolite (Neg) U Marijuana (THC) Screen (Neg) Ethyl Alcohol mg/dL < 10.0 (<10.0) mg/dl Blood Type Blood Type Recheck Antibody Screen Crossmatch 07/20/24 07/20/24 07/20/24 Range/Units 14:56 14:26 13:49 WBC (4.8-10.8) K/ul RBC (4.20-5.40) M/uL Hgb (12.0-16.0) g/dl POC Hgb 7.1 L (12.0-16.0) g/dl Hct (37.0-47.0) % POC Hct 21 L (37-47) % MCV (80.0-100.0) fL MCH (25.0-34.0) pg MCHC (32.0-36.0) g/dL RDW Std Deviation (36.4-46.3) fL RDW Coeff of Jolene (11.5-14.5) % Plt Count (130-400) K/uL MPV (9.4-12.4) fL Immature Gran % (Auto) % Neut % (Auto) % Lymph % (Auto) % Loup % (Auto) % Eos % (Auto) % Baso % (Auto) % Neut # (Auto) (1.40-6.50) K/uL Lymph # (Auto) (1.20-3.40) K/uL Loup # (Auto) (0.11-0.59) K/uL Eos # (Auto) (0.00-0.50) K/uL Baso # (Auto) (0.00-0.20) K/uL Immature Gran # (Auto) (0.01-0.20) K/uL Absolute Nucleated RBC (0.00-0.12) K/uL Nucleated RBC % (auto) % Polychromasia Echinocytes PT (9.0-12.0) Seconds INR (0.9-1.1) APTT (21-31) Seconds PTT Ratio Fibrinogen (184-400) mg/dl Specimen Type POC pH (7.35-7.45) POC pCO2 (35-46) mmHg POC pO2 (80-95) mmHg POC HCO3 (19-24) nanda/L POC Base Excess (-9-1.8) nanda/L POC ABG O2 Sat (90-95) % VBG pH (7.36-7.41) VBG pCO2 (38-50) mmHg VBG pO2 mmHg VBG HCO3 mmol/L VBG O2 Saturation % VBG Base Excess mEq/L POC Sodium 135 (135-144) mmol/L Sodium (136-145) mmol/L POC Potassium 4.8 (3.3-5.0) mmol/L Potassium (3.5-5.1) mmol/L POC Chloride 103 (101-112) mmol/L Chloride (98-107) mmol/L Carbon Dioxide (21-32) mmol/L POC Total CO2 13 L (24-31) mmol/L Anion Gap (3-11) POC Anion Gap 25.0 (16-25) mmol/L POC BUN > 140 H* (7-18) mg/dl BUN (6-23) mg/dl Creatinine (0.6-1.2) mg/dl POC Creatinine > 20.0 H* (0.6-1.3) mg/dl Est Cr Clr Drug Dosing ml/min eGFR BUN/Creatinine Ratio (10-20) Glucose (70-99(Fasting)) mg/dl POC Glucose (70-99) mg/dl POC Glucose (other) 122 H (70-99) mg/dl Osmolality (280-300) mOsm/kg Lactate (0.4-2.0) mmol/L Calcium (8.6-10.3) mg/dl POC Ioniz Calcium [place] 1.04 L (1.12-1.32) mmol/l Magnesium (1.7-2.4) mg/dl Total Bilirubin (0.2-1.0) mg/dl AST (13-39) U/L ALT (7-52) U/L Alkaline Phosphatase (34-104) U/L Troponin I High Sens (0-14) pg/ml Total Protein (6.0-8.3) gm/dl Albumin (3.4-5.0) gm/dl Globulin (2.5-4.0) gm/dl Albumin/Globulin Ratio (0.9-2) Urine Color Yellow Urine Appearance Cloudy A (Clear) Urine pH 5.0 (4.5-7.5) Ur Specific [place] 1.016 (1.000-1.030) Urine Protein 2+ H (Negative) Urine Glucose (UA) Negative (Negative) Urine Ketones Trace H (Negative) Urine Blood 2+ H (Negative) Urine Nitrite Negative (Negative) Urine Bilirubin Negative (Negative) Urine Urobilinogen Negative (Negative) Ur Leukocyte Esterase 2+ H (Negative) Urine WBC (Auto) 11-20 H (0-5) /hpf Urine RBC (Auto) 11-20 H (0-2) /hpf U Hyaline Cast (Auto) >20 H (0-2) /lpf U Epithel Cells (Auto) 6-10 H (0-2) /hpf Urine Bacteria (Auto) 1+ H (None Seen) Hyaline Casts Present A (None Presnt) /lpf Urine Osmolality 359 L (500-800) mOsm/kg Ur Random Creatinine 200.3 mg/dl Ur Random Sodium 46 mmol/L Ur Random Potassium 28.7 mmol/L Ur Random Chloride 18 mmol/L Nasal Screen MRSA (PCR) (Negative) POC Stool Occult Blood (Negative) Salicylates (3.0-30) mg/dl Urine Opiates Screen Neg (Neg) Ur Methadone, Qual Neg (Neg) Urine Fentanyl Screen Neg (Neg) Acetaminophen (10-30) ug/ml Urine Barbiturates Neg (Neg) Ur Phencyclidine (PCP) Neg (Neg) U Amphetamin/Meth Scrn Neg (Neg) MDMA (Ecstasy) Screen Neg (Neg) U Benzodiazepines Scrn Neg (Neg) Ur Cocaine Metabolite Neg (Neg) U Marijuana (THC) Screen Neg (Neg) Ethyl Alcohol mg/dL (<10.0) mg/dl Blood Type Blood Type Recheck Antibody Screen Crossmatch 07/20/24 07/20/24 07/20/24 Range/Units 13:48 13:46 13:44 WBC 14.13 H (4.8-10.8) K/ul RBC 2.60 L (4.20-5.40) M/uL Hgb 7.7 L (12.0-16.0) g/dl POC Hgb (12.0-16.0) g/dl Hct 22.5 L (37.0-47.0) % POC Hct (37-47) % MCV 86.5 (80.0-100.0) fL MCH 29.6 (25.0-34.0) pg MCHC 34.2 (32.0-36.0) g/dL RDW Std Deviation 45.9 (36.4-46.3) fL RDW Coeff of Jolene 14.6 H (11.5-14.5) % Plt Count 296 (130-400) K/uL MPV 11.8 (9.4-12.4) fL Immature Gran % (Auto) 0.7 % Neut % (Auto) 87.4 % Lymph % (Auto) 8.4 % Loup % (Auto) 3.3 % Eos % (Auto) 0.0 % Baso % (Auto) 0.2 % Neut # (Auto) 12.35 H (1.40-6.50) K/uL Lymph # (Auto) 1.18 L (1.20-3.40) K/uL Loup # (Auto) 0.47 (0.11-0.59) K/uL Eos # (Auto) 0.00 (0.00-0.50) K/uL Baso # (Auto) 0.03 (0.00-0.20) K/uL Immature Gran # (Auto) 0.10 (0.01-0.20) K/uL Absolute Nucleated RBC 0.03 (0.00-0.12) K/uL Nucleated RBC % (auto) 0.2 % Polychromasia 1+ Echinocytes 1+ PT 11.4 (9.0-12.0) Seconds INR 1.1 (0.9-1.1) APTT 23 (21-31) Seconds PTT Ratio 0.9 Fibrinogen (184-400) mg/dl Specimen Type POC pH (7.35-7.45) POC pCO2 (35-46) mmHg POC pO2 (80-95) mmHg POC HCO3 (19-24) nanda/L POC Base Excess (-9-1.8) nanda/L POC ABG O2 Sat (90-95) % VBG pH (7.36-7.41) VBG pCO2 (38-50) mmHg VBG pO2 mmHg VBG HCO3 mmol/L VBG O2 Saturation % VBG Base Excess mEq/L POC Sodium (135-144) mmol/L Sodium 139 (136-145) mmol/L POC Potassium (3.3-5.0) mmol/L Potassium 5.0 (3.5-5.1) mmol/L POC Chloride (101-112) mmol/L Chloride 97 L (98-107) mmol/L Carbon Dioxide 12 L (21-32) mmol/L POC Total CO2 (24-31) mmol/L Anion Gap 30 H (3-11) POC Anion Gap (16-25) mmol/L POC BUN (7-18) mg/dl BUN 183 H (6-23) mg/dl Creatinine 18.17 H* (0.6-1.2) mg/dl POC Creatinine (0.6-1.3) mg/dl Est Cr Clr Drug Dosing 2.8 ml/min eGFR 1.88 BUN/Creatinine Ratio 10.1 (10-20) Glucose 126 H (70-99(Fasting)) mg/dl POC Glucose (70-99) mg/dl POC Glucose (other) (70-99) mg/dl Osmolality 346 H (280-300) mOsm/kg Lactate (0.4-2.0) mmol/L Calcium 9.8 (8.6-10.3) mg/dl POC Ioniz Calcium [place] (1.12-1.32) mmol/l Magnesium (1.7-2.4) mg/dl Total Bilirubin 0.3 (0.2-1.0) mg/dl AST 29 (13-39) U/L ALT 17 (7-52) U/L Alkaline Phosphatase 79 (34-104) U/L Troponin I High Sens 338.1 H* (0-14) pg/ml Total Protein 7.0 (6.0-8.3) gm/dl Albumin 3.6 (3.4-5.0) gm/dl Globulin 3.4 (2.5-4.0) gm/dl Albumin/Globulin Ratio 1.1 (0.9-2) Urine Color Urine Appearance (Clear) Urine pH (4.5-7.5) Ur Specific [place] (1.000-1.030) Urine Protein (Negative) Urine Glucose (UA) (Negative) Urine Ketones (Negative) Urine Blood (Negative) Urine Nitrite (Negative) Urine Bilirubin (Negative) Urine Urobilinogen (Negative) Ur Leukocyte Esterase (Negative) Urine WBC (Auto) (0-5) /hpf Urine RBC (Auto) (0-2) /hpf U Hyaline Cast (Auto) (0-2) /lpf U Epithel Cells (Auto) (0-2) /hpf Urine Bacteria (Auto) (None Seen) Hyaline Casts (None Presnt) /lpf Urine Osmolality (500-800) mOsm/kg Ur Random Creatinine mg/dl Ur Random Sodium mmol/L Ur Random Potassium mmol/L Ur Random Chloride mmol/L Nasal Screen MRSA (PCR) (Negative) POC Stool Occult Blood (Negative) Salicylates (3.0-30) mg/dl Urine Opiates Screen (Neg) Ur Methadone, Qual (Neg) Urine Fentanyl Screen (Neg) Acetaminophen (10-30) ug/ml Urine Barbiturates (Neg) Ur Phencyclidine (PCP) (Neg) U Amphetamin/Meth Scrn (Neg) MDMA (Ecstasy) Screen (Neg) U Benzodiazepines Scrn (Neg) Ur Cocaine Metabolite (Neg) U Marijuana (THC) Screen (Neg) Ethyl Alcohol mg/dL (<10.0) mg/dl Blood Type A Negative Blood Type Recheck A Negative Antibody Screen NEGATIVE Crossmatch See Detail See Detail PG Care Time/CCT Total # of Minutes Spent Total Time Spent with Patient: Total time spent is greater than 50% in coordination of care (as documented) at patient's floor/unit and/or counseling patient: Coding Level of Care Code 89389 SUB INP/OBS CARE 3/50MIN Diagnoses Black stools K92.1
--- NOTE | 2024-07-21 09:54 | Nephrology Progress Note ---
Date of Service July 21, 2024 Assessment & Plan Admission and Anticipated Discharge Date Admission Date: July 20, 2024 Subjective Assessment & Plan (1) Acute renal failure: -2/ Severe volume depletion/ GI bleed. MYRON from Severe Vol Depletion/Low BP in the setting of Acute GI bleed. Labs starting to get better. Creat down a lot but still very high at 12+ and BUN 148. K is low at 2.9 so does need more KCL. Urine output is picking up nicely. It appears she does not need dialysis at this time but cannot be sure yet. K is low and getting Some supplement. Needs more IV kcl. Another 40 meq at least Consider lowering the IVf rate to 100 ml/hr. Already 7 liters +ve so we do have to be careful. Also Maintain hgb > 8 for better renal recovery. this AM was > 8 Keep Good BP. Check renal panel and CBC about q8hr. Anemia -- sec to GI bleed + MYRON makes it worse. keep HB > 8 w/ blood transfusion Desmopressin given with MYRON and GI bleed (2) Kidney stones: Case complexity high. Plan discussed with ICU, RN and primary team. total time spent 55 mins S--Says feels stronger. Labs better but still very bad. getting lot of IVF and also PRBC. making increasing amount of urine Physical Exam Physical Exam: PHYSICAL EXAM: General: awake, alert, but weak HEENT--- mucous membranes very dry Neuro: AAO x 3, speech clear and appropriate Chest: Clear to auscultation, on room air, Cardiac: Regular rate and rhythm, no JVD, S1S2 grade I systolic Murmur no edema GI: Soft non tender : kaufman+ no CVA tenderness, draining light melissa urine Psych: Normal mood and affect Skin: small ecchymotic areas to bilateral arms Results & Data Vital Signs (Past 12 Hours) Vital Signs Temp Pulse Resp BP Pulse Ox Pulse Ox O2 Del Method 07/21/24 08:44 99 07/21/24 08:37 Room Air 07/21/24 08:36 36.8 C 108 H 18 87 L 07/21/24 08:30 97/49 L 07/21/24 08:27 36.9 C 97 H 27 H 99 07/21/24 08:02 98/60 L 07/21/24 08:00 36.9 C 104 H 20 98 07/21/24 08:00 Room Air 07/21/24 07:45 36.9 C 102 H 24 102/65 99 07/21/24 07:45 36.9 C 104 H 26 H 102/65 95 07/21/24 07:39 36.9 C 108 H 20 99 07/21/24 07:33 36.9 C 105 H 18 100 07/21/24 07:31 101/55 L 07/21/24 07:31 101/55 L 07/21/24 07:30 36.9 C 116 H 22 98 07/21/24 07:24 93 07/21/24 07:15 36.9 C 102 H 81/39 L 07/21/24 07:12 26 H 97 07/21/24 07:03 21 97 07/21/24 07:00 98/54 L 07/21/24 07:00 98/54 L 07/21/24 06:54 36.9 C 106 H 24 96 07/21/24 06:50 36.9 C 105 H 24 99/53 L 97 07/21/24 06:45 36.9 C 106 H 25 H 98 07/21/24 06:20 36.9 C 103 H 25 H 83/47 L 97 07/21/24 06:05 36.9 C 105 H 24 93/56 L 95 07/21/24 05:48 37.0 C 113 H 23 100/46 L 97 07/21/24 04:57 37.1 C 108 H 23 96/52 L 97 Room Air 07/21/24 04:30 37.1 C 109 H 25 H 101/43 L 98 Room Air 07/21/24 03:45 37.1 C 109 H 16 92/55 L 99 Room Air 07/21/24 03:30 90/52 L 07/21/24 03:30 37.1 C 107 H 22 90/52 L 99 Room Air 07/21/24 03:00 37.1 C 106 H 24 98/53 L 99 Room Air 07/21/24 02:30 37.2 C 106 H 24 103/55 L 100 Room Air 07/21/24 02:30 110 H 26 H 85/49 L 100 Room Air 07/21/24 02:00 37.3 C 112 H 24 113/61 99 Room Air 07/21/24 01:32 37.4 C 115 H 21 98/62 L 98 Room Air 07/21/24 00:54 37.3 C 115 H 24 107/53 L 100 Room Air 07/21/24 00:30 37.4 C 115 H 24 92/43 L 99 Room Air 07/21/24 00:00 37.5 C 117 H 24 94/47 L 99 Room Air 07/20/24 23:30 37.5 C 122 H 25 H 98/52 L 99 Room Air 07/20/24 23:00 37.4 C 120 H 25 H 124/55 L 98 Room Air 07/20/24 22:45 37.5 C 121 H 29 H 124/55 L 97 Room Air 07/20/24 22:30 37.5 C 122 H 28 H 116/58 L 98 Room Air 07/20/24 21:51 37.5 C 124 H 27 H 119/66 100 Room Air O2 Del Method 07/21/24 08:44 Room Air 07/21/24 08:37 07/21/24 08:36 07/21/24 08:30 07/21/24 08:27 07/21/24 08:02 07/21/24 08:00 07/21/24 08:00 07/21/24 07:45 07/21/24 07:45 07/21/24 07:39 07/21/24 07:33 07/21/24 07:31 07/21/24 07:31 07/21/24 07:30 07/21/24 07:24 07/21/24 07:15 07/21/24 07:12 07/21/24 07:03 07/21/24 07:00 07/21/24 07:00 07/21/24 06:54 07/21/24 06:50 07/21/24 06:45 07/21/24 06:20 07/21/24 06:05 07/21/24 05:48 07/21/24 04:57 07/21/24 04:30 07/21/24 03:45 07/21/24 03:30 07/21/24 03:30 07/21/24 03:00 07/21/24 02:30 07/21/24 02:30 07/21/24 02:00 07/21/24 01:32 07/21/24 00:54 07/21/24 00:30 07/21/24 00:00 07/20/24 23:30 07/20/24 23:00 07/20/24 22:45 07/20/24 22:30 07/20/24 21:51
[2024-07-21] MEDS: POTASSIUM CHLORIDE / WTR 10 MEQ/100 ML PLCT IV SCH (10:14)
--- NOTE | 2024-07-21 10:29 | Critical Care Progress Note ---
Date of Service July 21, 2024 Assessment & Plan (1) Acute renal failure: (2) Acute GI bleeding: (3) Kidney stones: (4) Encephalopathy acute: (5) Shock circulatory: Plan Reason Critically Ill: 68-year-old female with chronic kidney disease, reflux, and recent stroke requiring Plavix presenting with acute renal failure and probable GI bleed. Recommendations: Neuro -metabolic encephalopathy appears resolved. Continue to follow clinically at this point in time. Holding duloxetine and bupropion. Cardiac -patient presented with hypovolemic/hemorrhagic shock. She is about 7 L positive with resuscitation. Has not required pressors. Will give some albumin support today to see if we can improve tachycardia. Reluctant to use additional crystalloid at this time. Await follow-up CBC. Echocardiogram pending. Elevated troponin likely supply demand mismatch. Holding antihypertensives Respiratory -no current issues. GI -probable upper GI bleed. Patient having bowel movements with no evidence of melena or hematochezia. Hemoglobin appears stable. Plan for endoscopy once medically appropriate. Continue PPI RENAL/LYTES -discussed with nephrology at bedside. Acute renal failure but improving with caodaism of effective circulating volume. Continue serial labs. -no current issues ENDO - glycemic control per protocol HEME -anemia due to acute blood loss. Follow-up CBC status post 3 units packed cells pending ID -no current issues. Follow clinically. --Prophylaxis VTE: SCDs GI: Pantoprazole Lines: Peripheral Diet: N.p.o. Will observe in the ICU pending improvement in her chemistry panel. Admission and Anticipated Discharge Date Admission Date: July 20, 2024 Subjective Patient seen and examined. Reviewed. 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 Patient reports that she is doing well clinically. She denies any abdominal pain, nausea, or vomiting. She is hungry and wants to eat. Her sensorium is clear and she is now alert and oriented x 3. No other neurological complaints. Review of Systems Review of Systems: All systems reviewed & are unremarkable except as noted in Subjective Physical Exam Constitutional: WD/WN, vitals as above Neck: trachea midline, no thyromegaly Respiratory: normal respiratory effort, lungs clear to auscultation Cardiovascular: RRR, no murmur, no edema Gastrointestinal (Abdomen): normal bowel sounds, soft, nontender, no hepatosplenomegaly Musculoskeletal: Extremities: extremities normal to inspection Skin: no rashes, warm and dry Neurologic: Nonfocal exam Lymphatic: no cervical lymphadenopathy Results & Data Results & Data Vital Signs (Past 12 Hours) Vital Signs Temp Pulse Resp BP Pulse Ox Pulse Ox O2 Del Method 07/21/24 08:44 99 07/21/24 08:37 Room Air 07/21/24 08:36 36.8 C 108 H 18 87 L 07/21/24 08:30 97/49 L 07/21/24 08:27 36.9 C 97 H 27 H 99 07/21/24 08:02 98/60 L 07/21/24 08:00 36.9 C 104 H 20 98 07/21/24 08:00 Room Air 07/21/24 07:45 36.9 C 102 H 24 102/65 99 07/21/24 07:45 36.9 C 104 H 26 H 102/65 95 07/21/24 07:39 36.9 C 108 H 20 99 07/21/24 07:33 36.9 C 105 H 18 100 07/21/24 07:31 101/55 L 07/21/24 07:31 101/55 L 07/21/24 07:30 36.9 C 116 H 22 98 07/21/24 07:24 93 07/21/24 07:15 36.9 C 102 H 81/39 L 07/21/24 07:12 26 H 97 07/21/24 07:03 21 97 07/21/24 07:00 98/54 L 07/21/24 07:00 98/54 L 07/21/24 06:54 36.9 C 106 H 24 96 07/21/24 06:50 36.9 C 105 H 24 99/53 L 97 07/21/24 06:45 36.9 C 106 H 25 H 98 07/21/24 06:20 36.9 C 103 H 25 H 83/47 L 97 07/21/24 06:05 36.9 C 105 H 24 93/56 L 95 07/21/24 05:48 37.0 C 113 H 23 100/46 L 97 07/21/24 04:57 37.1 C 108 H 23 96/52 L 97 Room Air 07/21/24 04:30 37.1 C 109 H 25 H 101/43 L 98 Room Air 07/21/24 03:45 37.1 C 109 H 16 92/55 L 99 Room Air 07/21/24 03:30 90/52 L 07/21/24 03:30 37.1 C 107 H 22 90/52 L 99 Room Air 07/21/24 03:00 37.1 C 106 H 24 98/53 L 99 Room Air 07/21/24 02:30 37.2 C 106 H 24 103/55 L 100 Room Air 07/21/24 02:30 110 H 26 H 85/49 L 100 Room Air 07/21/24 02:00 37.3 C 112 H 24 113/61 99 Room Air 07/21/24 01:32 37.4 C 115 H 21 98/62 L 98 Room Air 07/21/24 00:54 37.3 C 115 H 24 107/53 L 100 Room Air 07/21/24 00:30 37.4 C 115 H 24 92/43 L 99 Room Air 07/21/24 00:00 37.5 C 117 H 24 94/47 L 99 Room Air 07/20/24 23:30 37.5 C 122 H 25 H 98/52 L 99 Room Air 07/20/24 23:00 37.4 C 120 H 25 H 124/55 L 98 Room Air 07/20/24 22:45 37.5 C 121 H 29 H 124/55 L 97 Room Air 07/20/24 22:30 37.5 C 122 H 28 H 116/58 L 98 Room Air O2 Del Method 07/21/24 08:44 Room Air 07/21/24 08:37 07/21/24 08:36 07/21/24 08:30 07/21/24 08:27 07/21/24 08:02 07/21/24 08:00 07/21/24 08:00 07/21/24 07:45 07/21/24 07:45 07/21/24 07:39 07/21/24 07:33 07/21/24 07:31 07/21/24 07:31 07/21/24 07:30 07/21/24 07:24 07/21/24 07:15 07/21/24 07:12 07/21/24 07:03 07/21/24 07:00 07/21/24 07:00 07/21/24 06:54 07/21/24 06:50 07/21/24 06:45 07/21/24 06:20 07/21/24 06:05 07/21/24 05:48 07/21/24 04:57 07/21/24 04:30 07/21/24 03:45 07/21/24 03:30 07/21/24 03:30 07/21/24 03:00 07/21/24 02:30 07/21/24 02:30 07/21/24 02:00 07/21/24 01:32 07/21/24 00:54 07/21/24 00:30 07/21/24 00:00 07/20/24 23:30 07/20/24 23:00 07/20/24 22:45 07/20/24 22:30 Critical Care Results & Data Vital Signs (Past 12 Hours) Vital Signs Temp Pulse Resp BP Pulse Ox Pulse Ox O2 Del Method 07/21/24 08:44 99 07/21/24 08:37 Room Air 07/21/24 08:36 36.8 C 108 H 18 87 L 07/21/24 08:30 97/49 L 07/21/24 08:27 36.9 C 97 H 27 H 99 07/21/24 08:02 98/60 L 07/21/24 08:00 36.9 C 104 H 20 98 07/21/24 08:00 Room Air 07/21/24 07:45 36.9 C 102 H 24 102/65 99 07/21/24 07:45 36.9 C 104 H 26 H 102/65 95 07/21/24 07:39 36.9 C 108 H 20 99 07/21/24 07:33 36.9 C 105 H 18 100 07/21/24 07:31 101/55 L 07/21/24 07:31 101/55 L 07/21/24 07:30 36.9 C 116 H 22 98 07/21/24 07:24 93 07/21/24 07:15 36.9 C 102 H 81/39 L 07/21/24 07:12 26 H 97 07/21/24 07:03 21 97 07/21/24 07:00 98/54 L 07/21/24 07:00 98/54 L 07/21/24 06:54 36.9 C 106 H 24 96 07/21/24 06:50 36.9 C 105 H 24 99/53 L 97 07/21/24 06:45 36.9 C 106 H 25 H 98 07/21/24 06:20 36.9 C 103 H 25 H 83/47 L 97 07/21/24 06:05 36.9 C 105 H 24 93/56 L 95 07/21/24 05:48 37.0 C 113 H 23 100/46 L 97 07/21/24 04:57 37.1 C 108 H 23 96/52 L 97 Room Air 07/21/24 04:30 37.1 C 109 H 25 H 101/43 L 98 Room Air 07/21/24 03:45 37.1 C 109 H 16 92/55 L 99 Room Air 07/21/24 03:30 90/52 L 07/21/24 03:30 37.1 C 107 H 22 90/52 L 99 Room Air 07/21/24 03:00 37.1 C 106 H 24 98/53 L 99 Room Air 07/21/24 02:30 37.2 C 106 H 24 103/55 L 100 Room Air 07/21/24 02:30 110 H 26 H 85/49 L 100 Room Air 07/21/24 02:00 37.3 C 112 H 24 113/61 99 Room Air 07/21/24 01:32 37.4 C 115 H 21 98/62 L 98 Room Air 07/21/24 00:54 37.3 C 115 H 24 107/53 L 100 Room Air 07/21/24 00:30 37.4 C 115 H 24 92/43 L 99 Room Air 07/21/24 00:00 37.5 C 117 H 24 94/47 L 99 Room Air 07/20/24 23:30 37.5 C 122 H 25 H 98/52 L 99 Room Air 07/20/24 23:00 37.4 C 120 H 25 H 124/55 L 98 Room Air 07/20/24 22:45 37.5 C 121 H 29 H 124/55 L 97 Room Air O2 Del Method 07/21/24 08:44 Room Air 07/21/24 08:37 07/21/24 08:36 07/21/24 08:30 07/21/24 08:27 07/21/24 08:02 07/21/24 08:00 07/21/24 08:00 07/21/24 07:45 07/21/24 07:45 07/21/24 07:39 07/21/24 07:33 07/21/24 07:31 07/21/24 07:31 07/21/24 07:30 07/21/24 07:24 07/21/24 07:15 07/21/24 07:12 07/21/24 07:03 07/21/24 07:00 07/21/24 07:00 07/21/24 06:54 07/21/24 06:50 07/21/24 06:45 07/21/24 06:20 07/21/24 06:05 07/21/24 05:48 07/21/24 04:57 07/21/24 04:30 07/21/24 03:45 07/21/24 03:30 07/21/24 03:30 07/21/24 03:00 07/21/24 02:30 07/21/24 02:30 07/21/24 02:00 07/21/24 01:32 07/21/24 00:54 07/21/24 00:30 07/21/24 00:00 07/20/24 23:30 07/20/24 23:00 07/20/24 22:45 Lab & Micro Results (Past 24 Hours) RBC 2.90 M/uL (4.20-5.40) L 07/21/24 WBC 14.42 K/ul (4.8-10.8) H 07/21/24 Hgb 8.9 g/dl (12.0-16.0) L 07/21/24 Hct 24.6 % (37.0-47.0) L 07/21/24 MCV 84.8 fL (80.0-100.0) 07/21/24 MCH 30.7 pg (25.0-34.0) 07/21/24 MCHC 36.2 g/dL (32.0-36.0) H 07/21/24 RDW Standard Deviation 42.9 fL (36.4-46.3) 07/21/24 RDW Coefficient of Variation 13.9 % (11.5-14.5) 07/21/24 Plt Count 208 K/uL (130-400) 07/21/24 MPV 12.3 fL (9.4-12.4) 07/21/24 Nucleated Red Blood Cells % (auto) 0.3 % 07/21 Nucleated RBC Absolute Count (auto) 0.04 K/uL (0.00-0.12) 1 09/20/23 Neutrophils (%) (Auto) 80.3 % 07/21/24 Lymphocytes (%) (Auto) 9.2 % 07/21/24 Monocytes # (Auto) 1.38 K/uL (0.11-0.59) H 07/21/24 Eosinophils # (Auto) 0.01 K/uL (0.00-0.50) 07/21/24 Immature Granulocyte % (Auto) 0.6 % 07/21/24 Neutrophils # (Auto) 11.59 K/uL (1.40-6.50) H 07/21/24 Lymphocytes # (Auto) 1.33 K/uL (1.20-3.40) 07/21/24 Monocytes # (Auto) 1.38 K/uL (0.11-0.59) H 07/21/24 Eosinophils # (Auto) 0.01 K/uL (0.00-0.50) 07/21/24 Basophils # (Auto) 0.03 K/uL (0.00-0.20) 07/21/24 Immature Granulocyte # (Auto) 0.08 K/uL (0.01-0.20) 4 Polychromasia 1+ 07/20/24 Echinocytes 1+ 07/20/24 Na 142 mmol/L (136-145) 07/21/24 K 2.9 mmol/L (3.5-5.1) L 07/21/24 Cl 107 mmol/L (98-107) 07/21/24 CO2 16 mmol/L (21-32) L 07/21/24 Anion Gap 19 (3-11) H 07/21/24 BUN 148 mg/dl (6-23) H 07/21/24 Creatinine 12.33 mg/dl (0.6-1.2) H* 07/21/24 BUN/Creatinine Ratio 12.0 (10-20) 07/21/24 Glu 130 mg/dl (70-99(Fasting)) H 07/21/24 Ca 8.0 mg/dl (8.6-10.3) L 07/21/24 Total Bilirubin 0.4 mg/dl (0.2-1.0) 07/21/24 AST 29 U/L (13-39) 07/21/24 ALT 15 U/L (7-52) 07/21/24 Alkaline Phosphatase 51 U/L (34-104) 07/21/24 TP 4.9 gm/dl (6.0-8.3) L 07/21/24 Albumin 2.5 gm/dl (3.4-5.0) L 07/21/24 Globulin 2.4 gm/dl (2.5-4.0) L 07/21/24 Albumin/Globulin Ratio 1.0 (0.9-2) 07/21/24 Mg 2.1 mg/dl (1.7-2.4) 07/21/24 04:45 Calcium Level 8.0 mg/dl (8.6-10.3) L 07/21/24 04:45 Prothromb Time International Ratio 1.1 (0.9-1.1) 07/20/24 21:0 3 Venous Blood pH 7.37 (7.36-7.41) 07/21/24 02:21 Venous Blood Partial Pressure CO2 25 mmHg (38-50) L 07/20/24 23 :03 Venous Blood Partial Pressure O2 31 mmHg 07/20/24 23:03 Venous Blood HCO3 15 mmol/L 07/20/24 23:03 Venous Blood Base Excess -9.0 mEq/L 07/20/24 23:03 Venous Blood Oxygen Saturation < 60.0 % 07/20/24 23:03 Diagnostic Findings (Past 24 Hours) Chest X-Ray 07/20/24 13:30 EXAM: Radiograph of the Chest 1 View INDICATION: History GI bleeding. TECHNIQUE: Frontal view of the chest. COMPARISON: 06/19/2024 FINDINGS: Lungs and pleural spaces: No consolidation or pulmonary edema. No pleural effusion or pneumothorax. Heart: Shape and configuration within normal limits allowing for technique. Mediastinum: Normal contour. Bones/joints: Degenerative changes noted throughout the spine. No acute osseous abnormality seen. Soft tissues: No abnormality noted. No radiopaque foreign body noted. Vasculature: Stable mildly calcified ectatic aorta. Upper abdomen: No free intraperitoneal air noted subjacent to either diaphragm. IMPRESSION: No acute cardiopulmonary disease. ACT 112: Negative or not required by law. Electronically signed by Radha Osullivan 07-20-2024 2:04 PM Abdomen/Pelvis CT 07/20/24 13:59 EXAM: CT Abdomen and Pelvis Without Intravenous Contrast INDICATION: GI bleeding. Acute renal failure. TECHNIQUE: Axial computed tomography images of the abdomen and pelvis without intravenous contrast. Sagittal and coronal reformatted images were created and reviewed. This CT exam was performed using one or more of the following dose reduction techniques: automated exposure control, adjustment of the mA and/or kV according to patient size, and/or use of iterative reconstruction technique. COMPARISON: No relevant prior studies available. FINDINGS: Limitations: Streak artifact from the patient's arms noted over the renal shadows and portions of the stomach. Lung bases: No abnormality noted. Pleural space: No visualized pleural effusion or pneumothorax. Heart: There is dense mitral annular calcification. Mediastinum: No abnormality noted. ABDOMEN: Liver: Lack of intravenous contrast limits detection of some masses. No abnormality noted. Gallbladder and bile ducts: No calcified stones or surrounding fluid. Pancreas: No pancreatic mass, calcification, inflammation or ductal dilation noted. Spleen: No significant abnormality noted. Adrenals: No significant abnormality noted. Kidneys and ureters: There are multiple nonobstructing stones in each kidney measuring from punctate in size to up to 5 mm. No hydronephrosis or ureteral stone. Exophytic 5 mm dense nodule from the medial lower pole left kidney. Stomach and bowel: The stomach contains layering fluid. Artifact limits assessment of the posterior wall. No gross abnormality. Scattered stool throughout the colon without obstruction, inflammation or thickening. PELVIS: Appendix: Well seen and appears normal. Bladder: Collapsed bladder contains a catheter. No gross acute abnormality. Reproductive: 1 cm calcified uterine fibroid noted. ABDOMEN and PELVIS: Intraperitoneal space: No free air. No significant fluid collection. Bones/joints: Degenerative changes noted in the scoliotic spine. No acute osseous abnormality noted. Soft tissues: No significant abnormality noted. Vasculature: Atherosclerotic calcification of the aorta and branches. No aneurysm. Lymph nodes: No pathologically enlarged lymph nodes. IMPRESSION: 1. Allowing for artifact, no intestinal obstruction or inflammatory process noted. 2. Bilateral nonobstructing kidney stones. ACT 112: Negative or not required by law. Electronically signed by Radha Osullivan 07-20-2024 3:[address] 07/20/24 13:59 EXAM: CT Head Without Intravenous Contrast INDICATION: Acute renal failure. GI bleeding. Confusion. TECHNIQUE: Axial computed tomography images of the head/brain without intravenous contrast. Sagittal and/or coronal reformats are provided. Sagittal and coronal reformatted images were created and reviewed. This CT exam was performed using one or more of the following dose reduction techniques: automated exposure control, adjustment of the mA and/or kV according to patient size, and/or use of iterative reconstruction technique. COMPARISON: 06/19/2024 FINDINGS: Limitations: None. Brain and extra-axial spaces: There is age appropriate cortical atrophy and chronic ischemic periventricular white matter hypodensity. No acute infarct, hemorrhage or mass noted. Bones/joints: No acute changes. Soft tissues: No significant abnormality noted. Vasculature: No acute abnormality noted. Sinuses: No layering fluid in the visualized portions of the paranasal sinuses. Mastoid air cells: No mastoid effusion. Orbits: No significant abnormality noted. IMPRESSION: Cerebral atrophy. No acute changes. ACT 112: Negative or not required by law. Electronically signed by Radha Osullivan 07-20-2024 3:03 PM I & O Totals 24 Hours 07/20/24 07/21/24 07/22/24 06:59 06:59 06:59 Intake Total 7419.667 / 7419.667 1438.750 / 1438.750 Output Total 791 / 791 250 / 250 Balance 6628.667 / 6628.667 1188.750 / 1188.750 Cumulative 07/20/24 13:14 thru 07/21/24 10:15 Intake Total 8858.417 Output Total 1041 Balance 7817.417 RT Ventilator Mngmt (Last Documented) Ventilator Ordered Settings Respiratory Rate 18 07/21/24 08:36 Ventilator - PT Measurements Respiratory Rate 18 Coding Level of Care Code 09020 SUB INP/OBS CARE 3/50MIN Diagnoses Acute renal failure N17.9 Acute GI bleeding K92.2 Kidney stones N20.0 Encephalopathy acute G93.40 Shock circulatory R57.9
[2024-07-21] MEDS: ALBUMIN 25% 25 GM/100 ML VIAL IV SCH (10:42)
[2024-07-21 12:08] LABS: Hep B Surface Ag with confirm Negative (Negative)
[2024-07-21 12:17] LABS: Hepatitis B Surface Antibody Immune
[2024-07-21 12:31] LABS: Basophils # (auto) 0.03 K/uL (0.00-0.20); Basophils % (auto) 0.2 %; Eosinophils # (auto) 0.07 K/uL (0.00-0.50); Eosinophils % (auto) 0.5 %; Hematocrit (blood only) 26.5 % (37.0-47.0); Hemoglobin 9.4 g/dl (12.0-16.0); Immature Granulocytes # (auto) 0.06 K/uL (0.01-0.20); Immature Granulocytes % (auto) 0.5 %; Lymphocytes # (auto) 1.16 K/uL (1.20-3.40); Mean Corpuscular Hemoglobin 30.1 pg (25.0-34.0); Mean Corpuscular Hgb Conc 35.5 g/dL (32.0-36.0); Mean Corpuscular Volume 84.9 fL (80.0-100.0); Mean Platelet Volume 12.2 fL (9.4-12.4); Monocytes # (auto) 0.98 K/uL (0.11-0.59); Monocytes % (auto) 7.6 %; Neutrophils # (auto) 10.66 K/uL (1.40-6.50); Neutrophils % (auto) 82.2 %; Nucleated RBC # (auto) 0.03 K/uL (0.00-0.12); Nucleated RBC % (auto) 0.2 %; Platelet Count 195 K/uL (130-400); RDW Coefficient of Variation 14.2 % (11.5-14.5); RDW Standard Deviation 43.8 fL (36.4-46.3); Red Blood Count 3.12 M/uL (4.20-5.40); White Blood Count 12.96 K/ul (4.8-10.8)
[2024-07-21 12:36] LABS: Albumin Level 3.8 gm/dl (3.4-5.0); BUN Creatinine Ratio 11.9 (10-20); Creatinine Clr Calc Pharmacy 4.7 ml/min; Phosphorus 9.3 mg/dl (2.5-4.9); Potassium 3.1 mmol/L (3.5-5.1)
[2024-07-21] MEDS ORDERED: ONDANSETRON INJ 2 MG/ML 2 ML VIAL IV PRN (13:33)
[2024-07-21] MEDS: NOREPINEPHRINE/D5W 4 MG/250 ML PLCT IV SCH (14:45)
--- NOTE | 2024-07-21 15:51 | Electrocardiogram Report ---
Test Reason : Blood Pressure : */* mmHG Vent. Rate : 107 BPM Atrial Rate : 107 BPM P-R Int : 162 ms QRS Dur : 110 ms QT Int : 406 ms P-R-T Axes : 80 -27 48 degrees QTcB Int : 542 ms Sinus tachycardia with frequent , and consecutive Premature ventricular complexes Incomplete right bundle branch block Prolonged QT Abnormal ECG Confirmed by Mitchell Shen ([id number]) on 07/21/2024 3:51:23 PM Referred By: REFERRED SELF Confirmed By: Mitchell Shen
[2024-07-21] MEDS ORDERED: CARBOHYDRATES FOR HYPOGLYCEMIA PO PRN (16:35)
[2024-07-21] MEDS ORDERED: GLUCOSE 40% GEL 15 GM TUBE PO PRN (16:35)
[2024-07-21] MEDS ORDERED: GLUCOSE 10 TAB/TUBE PO PRN (16:35)
[2024-07-21] MEDS ORDERED: DEXTROSE 50% 50 ML SYRINGE IV PRN (16:35)
[2024-07-21] MEDS ORDERED: GLUCAGON FOR INJ 1 MG VIAL SQ PRN (16:35)
--- NOTE | 2024-07-21 17:32 | Hospitalist Progress Note ---
Date of Service July 21, 2024 Assessment & Plan (1) Metabolic encephalopathy: (2) High anion gap metabolic acidosis: (3) Acute renal failure: (4) Shock circulatory: (5) Acute GI bleeding: Plan This is a Critically Ill 68-year-old female who has a significant past medical history of HTN, HLD, GERD, CKD stage IIIb, tobacco use disorder and depression who presents to ED with concerns of dark tarry stool. Pt reports dark tarry stool for approx 2-3 weeks. Pt anemic and in renal failure, Cr 18 Acute Metabolic Encephalopathy High anion gap metabolic acidosis Acute Renal failure superimposed on CKD Acute blood loss anemia 2/2 GIB Shock - likely in setting of hemorrhagic and hypovolemia, can't rule out sepsis --CT head negative Admitted to ICU for critical care Consent for blood transfusion obtained - 2 units of pRBC on admission vasopressor support - Phenylephrine per ICU Empiric IV rocephin until sepsis ruled out, CXR negative, UA + 1 bacturia Baseline Cr 1.6-2, last done on 07/02 was 2.0 ( she did receive IV contrast on 06/25, Cr was 1.9 on that day) Nephrology consulted on admission and pt was started on bicarb drip. Nephrology following closely. Suspected GIB Acute blood loss anemia also hx of epistaxis hgb 06/2023 12.6, 07/02 was 9.2 pt reports dark stool x 2-3 weeks, no prior hx of endoscopy Pt started on plavix 3 days ago due to outpt w/u regarding CVA and identified to have severe carotid artery stenosis Started on PPI bolus/gtt, cont. GI consulted - plan for EGD/ colonoscopy Elevated troponin suspect Type II LA in setting of demand due to shock, will trend and get echo HTN: chronic, hold lisinopril given MYRON/hypotension Carotid artery stenosis: outpt CTA of neck revealed 70 to 90% stenosis of the right ICA and 50 to 70% of the left ICA. She has been referred to vascular and this is why plavix was initiated DVT PPX: SCDS FULL CODE PCP: Lorenza Sequeira Dispo: ICU Admission and Anticipated Discharge Date Admission Date: July 20, 2024 Subjective Pt seen in follow up of encephalopathy, MYRON, anemia, GI bleed Sitting up in bed in ICU, feeling improved, eating No fever, chills, chest pain, shortness of breath at this time GI and nephrology consulted and following closely Review of Systems Review of Systems: All systems reviewed & are unremarkable except as noted in Subjective Physical Exam Physical Exam: General : WD/WN F in NAD HEENT: NC/AT Chest CTAB Heart regular Abdomen bowel sound present, soft, nonteder Extremitiesno edema, moves extremities Neuroalert and awake. answers appropriately, no facial asymmetry, moves extremities Results & Data Results & Data Vital Signs (Past 12 Hours) Vital Signs Temp Pulse Resp BP Pulse Ox Pulse Ox O2 Del Method 07/21/24 16:00 84/55 L 07/21/24 16:00 84/55 L 07/21/24 15:56 81/57 L 07/21/24 15:51 36.7 C 101 H 25 H 84/55 L 93 Room Air 07/21/24 15:37 82/53 L 07/21/24 15:36 36.6 C 100 H 23 93 07/21/24 15:06 36.8 C 102 H 28 H 96 07/21/24 15:02 84/35 L 07/21/24 14:54 36.8 C 102 H 16 98 07/21/24 14:01 85/45 L 07/21/24 14:01 85/45 L 07/21/24 14:01 85/45 L 07/21/24 14:01 85/45 L 07/21/24 14:00 36.8 C 97 H 26 H 97 07/21/24 13:30 92/46 L 07/21/24 13:30 36.8 C 99 H 29 H 88 L 07/21/24 13:09 36.7 C 98 H 27 H 98 07/21/24 13:00 84/65 L 07/21/24 12:54 36.7 C 101 H 23 98 07/21/24 12:31 83/62 L 07/21/24 12:06 36.6 C 98 H 28 H 98 07/21/24 12:05 89/55 L 07/21/24 11:57 36.6 C 120 H 22 99 07/21/24 11:30 92/47 L 07/21/24 11:27 36.7 C 101 H 25 H 96 07/21/24 11:21 36.7 C 101 H 28 H 96 07/21/24 10:48 36.7 C 103 H 24 96 07/21/24 10:04 87/59 L 07/21/24 10:04 87/59 L 07/21/24 10:00 36.7 C 104 H 26 H 95 07/21/24 09:36 36.7 C 101 H 25 H 97 07/21/24 09:00 90/44 L 07/21/24 09:00 36.8 C 99 H 23 95 07/21/24 08:44 99 07/21/24 08:37 Room Air 07/21/24 08:36 36.8 C 108 H 18 87 L 07/21/24 08:30 97/49 L 07/21/24 08:27 36.9 C 97 H 27 H 99 07/21/24 08:02 98/60 L 07/21/24 08:00 36.9 C 104 H 20 98 07/21/24 08:00 Room Air 07/21/24 07:45 36.9 C 102 H 24 102/65 99 07/21/24 07:45 36.9 C 104 H 26 H 102/65 95 07/21/24 07:39 36.9 C 108 H 20 99 07/21/24 07:33 36.9 C 105 H 18 100 07/21/24 07:31 101/55 L 07/21/24 07:31 101/55 L 07/21/24 07:30 36.9 C 116 H 22 98 07/21/24 07:24 93 07/21/24 07:15 36.9 C 102 H 81/39 L 07/21/24 07:12 26 H 97 07/21/24 07:03 21 97 07/21/24 07:00 98/54 L 07/21/24 07:00 98/54 L 07/21/24 06:54 36.9 C 106 H 24 96 07/21/24 06:50 36.9 C 105 H 24 99/53 L 97 07/21/24 06:45 36.9 C 106 H 25 H 98 07/21/24 06:20 36.9 C 103 H 25 H 83/47 L 97 07/21/24 06:05 36.9 C 105 H 24 93/56 L 95 07/21/24 05:48 37.0 C 113 H 23 100/46 L 97 O2 Del Method 07/21/24 16:00 07/21/24 16:00 07/21/24 15:56 07/21/24 15:51 07/21/24 15:37 07/21/24 15:36 07/21/24 15:06 07/21/24 15:02 07/21/24 14:54 07/21/24 14:01 07/21/24 14:01 07/21/24 14:01 07/21/24 14:01 07/21/24 14:00 07/21/24 13:30 07/21/24 13:30 07/21/24 13:09 07/21/24 13:00 07/21/24 12:54 07/21/24 12:31 07/21/24 12:06 07/21/24 12:05 07/21/24 11:57 07/21/24 11:30 07/21/24 11:27 07/21/24 11:21 07/21/24 10:48 07/21/24 10:04 07/21/24 10:04 07/21/24 10:00 07/21/24 09:36 07/21/24 09:00 07/21/24 09:00 07/21/24 08:44 Room Air 07/21/24 08:37 07/21/24 08:36 07/21/24 08:30 07/21/24 08:27 07/21/24 08:02 07/21/24 08:00 07/21/24 08:00 07/21/24 07:45 07/21/24 07:45 07/21/24 07:39 07/21/24 07:33 07/21/24 07:31 07/21/24 07:31 07/21/24 07:30 07/21/24 07:24 07/21/24 07:15 07/21/24 07:12 07/21/24 07:03 07/21/24 07:00 07/21/24 07:00 07/21/24 06:54 07/21/24 06:50 07/21/24 06:45 07/21/24 06:20 07/21/24 06:05 07/21/24 05:48 Laboratory Results 07/21/24 07/21/24 07/21/24 Range/Units 16:23 12:01 12:00 WBC 12.96 H (4.8-10.8) K/ul RBC 3.12 L (4.20-5.40) M/uL Hgb 9.4 L (12.0-16.0) g/dl Hct 26.5 L (37.0-47.0) % MCV 84.9 (80.0-100.0) fL MCH 30.1 (25.0-34.0) pg MCHC 35.5 (32.0-36.0) g/dL RDW Std Deviation 43.8 (36.4-46.3) fL RDW Coeff of Jolene 14.2 (11.5-14.5) % Plt Count 195 (130-400) K/uL MPV 12.2 (9.4-12.4) fL Immature Gran % (Auto) 0.5 % Neut % (Auto) 82.2 % Lymph % (Auto) 9.0 % [place] % (Auto) 7.6 % Eos % (Auto) 0.5 % Baso % (Auto) 0.2 % Neut # (Auto) 10.66 H (1.40-6.50) K/uL Lymph # (Auto) 1.16 L (1.20-3.40) K/uL [place] # (Auto) 0.98 H (0.11-0.59) K/uL Eos # (Auto) 0.07 (0.00-0.50) K/uL Baso # (Auto) 0.03 (0.00-0.20) K/uL Immature Gran # (Auto) 0.06 (0.01-0.20) K/uL Absolute Nucleated RBC 0.03 (0.00-0.12) K/uL Nucleated RBC % (auto) 0.2 % PT (9.0-12.0) Seconds INR (0.9-1.1) APTT (21-31) Seconds PTT Ratio Fibrinogen (184-400) mg/dl VBG pH (7.36-7.41) VBG pCO2 (38-50) mmHg VBG pO2 mmHg VBG HCO3 mmol/L VBG O2 Saturation % VBG Base Excess mEq/L Sodium 140 (136-145) mmol/L Potassium 3.1 L Chloride 103 (98-107) mmol/L Carbon Dioxide 16 L (21-32) mmol/L Anion Gap 21 H (3-11) BUN 129 H (6-23) mg/dl Creatinine 10.84 H* D (0.6-1.2) mg/dl Est Cr Clr Drug Dosing 4.7 ml/min eGFR 3.49 BUN/Creatinine Ratio 11.9 Glucose 123 H (70-99(Fasting)) mg/dl POC Glucose 181 H (70-99) mg/dl Osmolality (280-300) mOsm/kg Calcium 8.0 L (8.6-10.3) mg/dl Phosphorus 9.3 H (2.5-4.9) mg/dl Magnesium (1.7-2.4) mg/dl Total Bilirubin (0.2-1.0) mg/dl AST (13-39) U/L ALT (7-52) U/L Alkaline Phosphatase (34-104) U/L Troponin I High Sens (0-14) pg/ml Total Protein (6.0-8.3) gm/dl Albumin 3.8 (3.4-5.0) gm/dl Globulin (2.5-4.0) gm/dl Albumin/Globulin Ratio (0.9-2) Nasal Screen MRSA (PCR) (Negative) Salicylates (3.0-30) mg/dl Acetaminophen (10-30) ug/ml Ethyl Alcohol mg/dL (<10.0) mg/dl Hep Bs Antigen (Negative) Hep Bs Antibody Hep Bs Antibody, Quant (>or=10mIU/mL Immune) mIU/mL Hep B Core IgM Ab Blood Type Antibody Screen Crossmatch 07/21/24 07/21/24 07/21/24 Range/Units 11:12 07:03 04:45 WBC 14.42 H (4.8-10.8) K/ul RBC 2.90 L (4.20-5.40) M/uL Hgb 8.9 L (12.0-16.0) g/dl Hct 24.6 L (37.0-47.0) % MCV 84.8 (80.0-100.0) fL MCH 30.7 (25.0-34.0) pg MCHC 36.2 H (32.0-36.0) g/dL RDW Std Deviation 42.9 (36.4-46.3) fL RDW Coeff of Jolene 13.9 (11.5-14.5) % Plt Count 208 (130-400) K/uL MPV 12.3 (9.4-12.4) fL Immature Gran % (Auto) 0.6 % Neut % (Auto) 80.3 % Lymph % (Auto) 9.2 % [place] % (Auto) 9.6 % Eos % (Auto) 0.1 % Baso % (Auto) 0.2 % Neut # (Auto) 11.59 H (1.40-6.50) K/uL Lymph # (Auto) 1.33 (1.20-3.40) K/uL [place] # (Auto) 1.38 H (0.11-0.59) K/uL Eos # (Auto) 0.01 (0.00-0.50) K/uL Baso # (Auto) 0.03 (0.00-0.20) K/uL Immature Gran # (Auto) 0.08 (0.01-0.20) K/uL Absolute Nucleated RBC 0.04 (0.00-0.12) K/uL Nucleated RBC % (auto) 0.3 % PT (9.0-12.0) Seconds INR (0.9-1.1) APTT (21-31) Seconds PTT Ratio Fibrinogen (184-400) mg/dl VBG pH (7.36-7.41) VBG pCO2 (38-50) mmHg VBG pO2 mmHg VBG HCO3 mmol/L VBG O2 Saturation % VBG Base Excess mEq/L Sodium 142 (136-145) mmol/L Potassium 2.9 L Chloride 107 (98-107) mmol/L Carbon Dioxide 16 L (21-32) mmol/L Anion Gap 19 H (3-11) BUN 148 H (6-23) mg/dl Creatinine 12.33 H* D (0.6-1.2) mg/dl Est Cr Clr Drug Dosing 4.2 ml/min eGFR 2.99 BUN/Creatinine Ratio 12.0 Glucose 130 H (70-99(Fasting)) mg/dl POC Glucose 126 H 127 H (70-99) mg/dl Osmolality (280-300) mOsm/kg Calcium 8.0 L (8.6-10.3) mg/dl Phosphorus (2.5-4.9) mg/dl Magnesium 2.1 (1.7-2.4) mg/dl Total Bilirubin 0.4 (0.2-1.0) mg/dl AST 29 (13-39) U/L ALT 15 (7-52) U/L Alkaline Phosphatase 51 (34-104) U/L Troponin I High Sens 413.8 H* (0-14) pg/ml Total Protein 4.9 L D (6.0-8.3) gm/dl Albumin 2.5 L (3.4-5.0) gm/dl Globulin 2.4 L (2.5-4.0) gm/dl Albumin/Globulin Ratio 1.0 (0.9-2) Nasal Screen MRSA (PCR) (Negative) Salicylates (3.0-30) mg/dl Acetaminophen (10-30) ug/ml Ethyl Alcohol mg/dL (<10.0) mg/dl Hep Bs Antigen (Negative) Hep Bs Antibody Hep Bs Antibody, Quant (>or=10mIU/mL Immune) mIU/mL Hep B Core IgM Ab Blood Type Antibody Screen Crossmatch 07/21/24 07/20/24 07/20/24 Range/Units 02:21 23:03 21:03 WBC (4.8-10.8) K/ul RBC (4.20-5.40) M/uL Hgb 9.0 L 9.9 L (12.0-16.0) g/dl Hct 25.7 L (37.0-47.0) % MCV (80.0-100.0) fL MCH (25.0-34.0) pg MCHC (32.0-36.0) g/dL RDW Std Deviation (36.4-46.3) fL RDW Coeff of Jolene (11.5-14.5) % Plt Count (130-400) K/uL MPV (9.4-12.4) fL Immature Gran % (Auto) % Neut % (Auto) % Lymph % (Auto) % [place] % (Auto) % Eos % (Auto) % Baso % (Auto) % Neut # (Auto) (1.40-6.50) K/uL Lymph # (Auto) (1.20-3.40) K/uL [place] # (Auto) (0.11-0.59) K/uL Eos # (Auto) (0.00-0.50) K/uL Baso # (Auto) (0.00-0.20) K/uL Immature Gran # (Auto) (0.01-0.20) K/uL Absolute Nucleated RBC (0.00-0.12) K/uL Nucleated RBC % (auto) % PT 11.4 (9.0-12.0) Seconds INR 1.1 (0.9-1.1) APTT 26 (21-31) Seconds PTT Ratio 1.0 Fibrinogen 723 H (184-400) mg/dl VBG pH 7.37 7.37 (7.36-7.41) VBG pCO2 25 L (38-50) mmHg VBG pO2 31 mmHg VBG HCO3 15 mmol/L VBG O2 Saturation < 60.0 % VBG Base Excess -9.0 mEq/L Sodium 141 (136-145) mmol/L Potassium 3.2 L Chloride 105 (98-107) mmol/L Carbon Dioxide 15 L (21-32) mmol/L Anion Gap 21 H (3-11) BUN 153 H (6-23) mg/dl Creatinine 13.60 H* D (0.6-1.2) mg/dl Est Cr Clr Drug Dosing 3.2 ml/min eGFR 2.66 BUN/Creatinine Ratio 11.3 Glucose 160 H (70-99(Fasting)) mg/dl POC Glucose (70-99) mg/dl Osmolality (280-300) mOsm/kg Calcium 8.6 (8.6-10.3) mg/dl Phosphorus (2.5-4.9) mg/dl Magnesium (1.7-2.4) mg/dl Total Bilirubin (0.2-1.0) mg/dl AST (13-39) U/L ALT (7-52) U/L Alkaline Phosphatase (34-104) U/L Troponin I High Sens 385.8 H* D (0-14) pg/ml Total Protein (6.0-8.3) gm/dl Albumin (3.4-5.0) gm/dl Globulin (2.5-4.0) gm/dl Albumin/Globulin Ratio (0.9-2) Nasal Screen MRSA (PCR) (Negative) Salicylates (3.0-30) mg/dl Acetaminophen (10-30) ug/ml Ethyl Alcohol mg/dL (<10.0) mg/dl Hep Bs Antigen (Negative) Hep Bs Antibody Hep Bs Antibody, Quant (>or=10mIU/mL Immune) mIU/mL Hep B Core IgM Ab Blood Type Antibody Screen Crossmatch 07/20/24 07/20/24 07/20/24 Range/Units 20:07 18:50 17:55 WBC (4.8-10.8) K/ul RBC (4.20-5.40) M/uL Hgb (12.0-16.0) g/dl Hct (37.0-47.0) % MCV (80.0-100.0) fL MCH (25.0-34.0) pg MCHC (32.0-36.0) g/dL RDW Std Deviation (36.4-46.3) fL RDW Coeff of Jolene (11.5-14.5) % Plt Count (130-400) K/uL MPV (9.4-12.4) fL Immature Gran % (Auto) % Neut % (Auto) % Lymph % (Auto) % [place] % (Auto) % Eos % (Auto) % Baso % (Auto) % Neut # (Auto) (1.40-6.50) K/uL Lymph # (Auto) (1.20-3.40) K/uL [place] # (Auto) (0.11-0.59) K/uL Eos # (Auto) (0.00-0.50) K/uL Baso # (Auto) (0.00-0.20) K/uL Immature Gran # (Auto) (0.01-0.20) K/uL Absolute Nucleated RBC (0.00-0.12) K/uL Nucleated RBC % (auto) % PT (9.0-12.0) Seconds INR (0.9-1.1) APTT (21-31) Seconds PTT Ratio Fibrinogen (184-400) mg/dl VBG pH (7.36-7.41) VBG pCO2 (38-50) mmHg VBG pO2 mmHg VBG HCO3 mmol/L VBG O2 Saturation % VBG Base Excess mEq/L Sodium (136-145) mmol/L Potassium Chloride (98-107) mmol/L Carbon Dioxide (21-32) mmol/L Anion Gap (3-11) BUN (6-23) mg/dl Creatinine (0.6-1.2) mg/dl Est Cr Clr Drug Dosing ml/min eGFR BUN/Creatinine Ratio Glucose (70-99(Fasting)) mg/dl POC Glucose 159 H (70-99) mg/dl Osmolality (280-300) mOsm/kg Calcium (8.6-10.3) mg/dl Phosphorus (2.5-4.9) mg/dl Magnesium (1.7-2.4) mg/dl Total Bilirubin (0.2-1.0) mg/dl AST (13-39) U/L ALT (7-52) U/L Alkaline Phosphatase (34-104) U/L Troponin I High Sens (0-14) pg/ml Total Protein (6.0-8.3) gm/dl Albumin (3.4-5.0) gm/dl Globulin (2.5-4.0) gm/dl Albumin/Globulin Ratio (0.9-2) Nasal Screen MRSA (PCR) Negative (Negative) Salicylates (3.0-30) mg/dl Acetaminophen (10-30) ug/ml Ethyl Alcohol mg/dL (<10.0) mg/dl Hep Bs Antigen (Negative) Hep Bs Antibody Hep Bs Antibody, Quant (>or=10mIU/mL Immune) mIU/mL Hep B Core IgM Ab Pending Blood Type Antibody Screen Crossmatch 07/20/24 07/20/24 07/20/24 Range/Units 17:53 17:06 13:46 WBC (4.8-10.8) K/ul RBC (4.20-5.40) M/uL Hgb (12.0-16.0) g/dl Hct (37.0-47.0) % MCV (80.0-100.0) fL MCH (25.0-34.0) pg MCHC (32.0-36.0) g/dL RDW Std Deviation (36.4-46.3) fL RDW Coeff of Jolene (11.5-14.5) % Plt Count (130-400) K/uL MPV (9.4-12.4) fL Immature Gran % (Auto) % Neut % (Auto) % Lymph % (Auto) % [place] % (Auto) % Eos % (Auto) % Baso % (Auto) % Neut # (Auto) (1.40-6.50) K/uL Lymph # (Auto) (1.20-3.40) K/uL [place] # (Auto) (0.11-0.59) K/uL Eos # (Auto) (0.00-0.50) K/uL Baso # (Auto) (0.00-0.20) K/uL Immature Gran # (Auto) (0.01-0.20) K/uL Absolute Nucleated RBC (0.00-0.12) K/uL Nucleated RBC % (auto) % PT (9.0-12.0) Seconds INR (0.9-1.1) APTT (21-31) Seconds PTT Ratio Fibrinogen (184-400) mg/dl VBG pH (7.36-7.41) VBG pCO2 (38-50) mmHg VBG pO2 mmHg VBG HCO3 mmol/L VBG O2 Saturation % VBG Base Excess mEq/L Sodium 140 (136-145) mmol/L Potassium 3.9 D TNP Chloride 102 (98-107) mmol/L Carbon Dioxide 12 L (21-32) mmol/L Anion Gap 26 H (3-11) BUN 162 H D (6-23) mg/dl Creatinine 15.30 H* D (0.6-1.2) mg/dl Est Cr Clr Drug Dosing 3.3 ml/min eGFR 2.31 BUN/Creatinine Ratio TNP Glucose 118 H (70-99(Fasting)) mg/dl POC Glucose (70-99) mg/dl Osmolality 346 H (280-300) mOsm/kg Calcium 8.4 L (8.6-10.3) mg/dl Phosphorus (2.5-4.9) mg/dl Magnesium (1.7-2.4) mg/dl Total Bilirubin (0.2-1.0) mg/dl AST (13-39) U/L ALT (7-52) U/L Alkaline Phosphatase (34-104) U/L Troponin I High Sens (0-14) pg/ml Total Protein (6.0-8.3) gm/dl Albumin (3.4-5.0) gm/dl Globulin (2.5-4.0) gm/dl Albumin/Globulin Ratio (0.9-2) Nasal Screen MRSA (PCR) (Negative) Salicylates < 3.0 L (3.0-30) mg/dl Acetaminophen < 3 L (10-30) ug/ml Ethyl Alcohol mg/dL < 10.0 (<10.0) mg/dl Hep Bs Antigen Negative (Negative) Hep Bs Antibody Immune Hep Bs Antibody, Quant 62.10 (>or=10mIU/mL Immune) mIU/mL Hep B Core IgM Ab Blood Type Antibody Screen Crossmatch 07/20/24 Range/Units 13:44 WBC (4.8-10.8) K/ul RBC (4.20-5.40) M/uL Hgb (12.0-16.0) g/dl Hct (37.0-47.0) % MCV (80.0-100.0) fL MCH (25.0-34.0) pg MCHC (32.0-36.0) g/dL RDW Std Deviation (36.4-46.3) fL RDW Coeff of Jolene (11.5-14.5) % Plt Count (130-400) K/uL MPV (9.4-12.4) fL Immature Gran % (Auto) % Neut % (Auto) % Lymph % (Auto) % [place] % (Auto) % Eos % (Auto) % Baso % (Auto) % Neut # (Auto) (1.40-6.50) K/uL Lymph # (Auto) (1.20-3.40) K/uL [place] # (Auto) (0.11-0.59) K/uL Eos # (Auto) (0.00-0.50) K/uL Baso # (Auto) (0.00-0.20) K/uL Immature Gran # (Auto) (0.01-0.20) K/uL Absolute Nucleated RBC (0.00-0.12) K/uL Nucleated RBC % (auto) % PT (9.0-12.0) Seconds INR (0.9-1.1) APTT (21-31) Seconds PTT Ratio Fibrinogen (184-400) mg/dl VBG pH (7.36-7.41) VBG pCO2 (38-50) mmHg VBG pO2 mmHg VBG HCO3 mmol/L VBG O2 Saturation % VBG Base Excess mEq/L Sodium (136-145) mmol/L Potassium Chloride (98-107) mmol/L Carbon Dioxide (21-32) mmol/L Anion Gap (3-11) BUN (6-23) mg/dl Creatinine (0.6-1.2) mg/dl Est Cr Clr Drug Dosing ml/min eGFR BUN/Creatinine Ratio Glucose (70-99(Fasting)) mg/dl POC Glucose (70-99) mg/dl Osmolality (280-300) mOsm/kg Calcium (8.6-10.3) mg/dl Phosphorus (2.5-4.9) mg/dl Magnesium (1.7-2.4) mg/dl Total Bilirubin (0.2-1.0) mg/dl AST (13-39) U/L ALT (7-52) U/L Alkaline Phosphatase (34-104) U/L Troponin I High Sens (0-14) pg/ml Total Protein (6.0-8.3) gm/dl Albumin (3.4-5.0) gm/dl Globulin (2.5-4.0) gm/dl Albumin/Globulin Ratio (0.9-2) Nasal Screen MRSA (PCR) (Negative) Salicylates (3.0-30) mg/dl Acetaminophen (10-30) ug/ml Ethyl Alcohol mg/dL (<10.0) mg/dl Hep Bs Antigen (Negative) Hep Bs Antibody Hep Bs Antibody, Quant (>or=10mIU/mL Immune) mIU/mL Hep B Core IgM Ab Blood Type A Negative Antibody Screen NEGATIVE Crossmatch See Detail Medications Administered Current Inpatient Medications Dextrose (Dextrose 50% 50 Ml Syringe) 25 - 50 ml IV UD PRN; Protocol PRN Reason: Hypoglycemia Protocol Stop: 08/20/24 16:34 Glucagon (Glucagon For Inj 1 Mg Vial) 1 mg SQ UD PRN; Protocol PRN Reason: Hypoglycemia Protocol Stop: 08/20/24 16:34 Glucose (Glucose 40% Gel 15 Gm Tube) 15 - 30 gm PO UD PRN; Protocol PRN Reason: Hypoglycemia Protocol Stop: 08/20/24 16:34 Glucose (Glucose 10 Tab/Tube) 4 - 8 tab PO UD PRN; Protocol PRN Reason: Hypoglycemia Protocol Stop: 08/20/24 16:34 Pantoprazole Sodium 40 mg/ (Dextrose) 100 mls @ 20 mls/hr IV Q5H [facility] Stop: 08/19/24 14:29 Last Admin: 07/21/24 14:52 Dose: 8 mg/hr, 20 mls/hr Acetaminophen (Ofirmev) 1,000 mg in 100 mls @ 400 mls/hr IV Q8H PRN PRN Reason: fever, pain Stop: 07/23/24 19:12 Ceftriaxone Sodium (Rocephin) 2,000 mg in 50 mls @ 100 mls/hr IV Q24H [facility] Stop: 07/23/24 18:29 Parenteral Electrolytes (Plasma-Lyte A Ph 7.4) 1,000 mls @ 100 mls/hr IV .Q10H [facility] Stop: 07/22/24 02:44 Last Admin: 07/21/24 14:55 Dose: 100 mls/hr Phenylephrine HCl (Phenylephrine/Nss) 25 mg in 250 mls @ 22.32 mls/hr IV .[id number] [facility]; Protocol Stop: 08/20/24 16:44 Insulin Aspart (Insulin Aspart Per Unit Charge) 0 units SC [facility] Stop: 08/20/24 20:59 Miscellaneous (Icu Protocol For Hyperglycemia) 1 each N/A ACHS [facility] Stop: 07/22/24 20:59 Last Admin: 07/21/24 11:12 Dose: 1 each Miscellaneous (Carbohydrates For Hypoglycemia ) 15 - 30 gm PO UD PRN PRN Reason: Hypoglycemia Protocol Stop: 08/20/24 16:34 Ondansetron HCl (Ondansetron Inj 2 Mg/Ml 2 Ml Vial) 4 mg IV Q6H PRN PRN Reason: Nausea Stop: 08/20/24 13:30
[2024-07-21] MEDS: cefTRIAXone SODIUM 2,000 MG/50 ML BAG IV SCH (17:44)
[2024-07-21] MEDS: PHENYLEPHRINE/NSS 25 MG/250 ML BAG IV SCH (17:49)
[2024-07-21] MEDS: INSULIN ASPART PER UNIT CHARGE SC SCH (20:58)
[2024-07-22] MEDS: PLASMA-LYTE A 1,000 ML IV SCH (02:57)
[2024-07-22 04:33] LABS: Basophils # (auto) 0.04 K/uL (0.00-0.20); Basophils % (auto) 0.3 %; Eosinophils # (auto) 0.43 K/uL (0.00-0.50); Eosinophils % (auto) 3.7 %; Hematocrit (blood only) 25.2 % (37.0-47.0); Hemoglobin 8.9 g/dl (12.0-16.0); Immature Granulocytes # (auto) 0.05 K/uL (0.01-0.20); Immature Granulocytes % (auto) 0.4 %; Lymphocytes # (auto) 1.89 K/uL (1.20-3.40); Lymphocytes % (auto) 16.3 %; Mean Corpuscular Hgb Conc 35.3 g/dL (32.0-36.0); Mean Corpuscular Volume 84.8 fL (80.0-100.0); Monocytes # (auto) 1.03 K/uL (0.11-0.59); Monocytes % (auto) 8.9 %; Neutrophils # (auto) 8.17 K/uL (1.40-6.50); Neutrophils % (auto) 70.4 %; Nucleated RBC # (auto) 0.04 K/uL (0.00-0.12); Nucleated RBC % (auto) 0.3 %; Platelet Count 188 K/uL (130-400); RDW Coefficient of Variation 14.1 % (11.5-14.5); RDW Standard Deviation 43.7 fL (36.4-46.3); Red Blood Count 2.97 M/uL (4.20-5.40); White Blood Count 11.61 K/ul (4.8-10.8)
[2024-07-22 05:03] LABS: Albumin Globulin Ratio 1.6 (0.9-2); Albumin Level 3.1 gm/dl (3.4-5.0); Bilirubin,Total 0.4 mg/dl (0.2-1.0); Calcium 7.8 mg/dl (8.6-10.3); Creatinine Clr Calc Pharmacy 5.7 ml/min; Globulin 1.9 gm/dl (2.5-4.0); Potassium 2.9 mmol/L (3.5-5.1)
[2024-07-22] MEDS: POTASSIUM CHLORIDE 20 MEQ/15 ML UDC PO STA (05:26)
[2024-07-22] MEDS: POTASSIUM CHLORIDE / WTR 10 MEQ/100 ML PLCT IV SCH (05:26)
--- NOTE | 2024-07-22 07:56 | Critical Care Progress Note ---
Date of Service July 22, 2024 Assessment & Plan (1) Acute renal failure: (2) Acute GI bleeding: (3) Kidney stones: (4) Encephalopathy acute: (5) Shock circulatory: Plan Reason Critically Ill: 68-year-old female with a history of CKD, reflux, and recent diagnosis of CVA placed on Plavix who presented in the setting of hypovolemic/hemorrhagic shock with acute on chronic renal failure and electrolyte derangements. NEURO - * CAM ICU: NEGATIVE * Metabolic encephalopathy -resolved * Continue to hold duloxetine and bupropion for now. CARDIAC/VASCULAR - * Hypotension: * In the setting of hemorrhagic/hypovolemic shock. * Remaining on Aristeo-Synephrine at this point to aid in renal perfusion. * H&H has been stable for the last 24+ hours. * Patient started on stress dose steroids today as well as Midodrine. * Hopeful to be able to discontinue pressors in the next several hours. * Echo (07/21): Hyperdynamic LV with an EF of greater than 70%. No regional wall motion abnormalities noted. Severe aortic stenosis suggested by Doppler interrogation, however the severity is felt to be possibly overestimated due to the hyperdynamic LEFT ventricular systolic function at this time. Will repeat echocardiogram when patient clinically stabilizes. Mild pulmonary hypertension with a PASP of 45 to 50 mmHg. * Monitor on telemetry. RESPIRATORY - * Treating well on room air at this time. GI/NUTRITION - * Probable UGIB: * Stable H&H at this time. * Continue with PPI. * Defer to GI for scoping if felt indicated. * Prophylaxis: PPI RENAL/LYTES - * Acute renal failure superimposed on chronic kidney disease: * Creatinine trending down. * Electrolytes stable. * IVF: Plasma-Lyte at 75 mL/h. - * No concerns at this time. * [place]nelas in place - Strict I&Os. ENDO - * No h/o DM or Thyroid Dz * BSGs per unit protocol. ISS --> gtt per unit policy. HEME - * Acute Blood Loss Anemia: * Reports nosebleeds. * Likely GI source. * s/p 3 U PRBCs * H&H remains stable at this time. ID - * No concerns at this time. LINES/IV ACCESS - * PIVs x3 * Ornelas DVT PROPHYLAXIS - * Will hold on chemoprophylaxis in the setting of acute blood loss anemia. * SCDs I have personally spent [] minutes of critical care time in the direct management of this patient. This is a life/limb threatening event. This includes time spent evaluating patient, direct bedside care, chart review, placing orders, interpretation of diagnostic studies, discussion with consultants, patient, and family members, as well as other required patient management activities. This time is exclusive of all separately billable procedures, and teaching time and separate from and in addition to any other critical care service time. Thank you for allowing us to participate in the care of this patient. Please refer to my attending physician's documentation for any further recommendations. Admission and Anticipated Discharge Date Admission Date: July 20, 2024 Supervising Physician Co-Signing Physician Notes Patient seen and examined. EMR reviewed. Discussed with critical care ELDER and with bedside nurse. Agree with assessment plan as noted. If the patient does well off pressors, she can likely transfer to the floor. Continue to trend electrolytes and renal function. Advancing diet. No evidence of ongoing blood loss Subjective Patient seen and evaluated at bedside. She had an uneventful night. She remains on Aristeo-Synephrine today. She was started on stress dose steroids and midodrine today. She feels improved and her appetite is getting better. She offers no complaints of pain today. Review of Systems Review of Systems: As per subjective. Physical Exam Physical Exam: VITAL SIGNS - Vital signs and nursing notes were reviewed. GENERAL - 68-year-old female appearing her stated age who is in no acute distress. Communicates well with provider and answers questions appropriately. SKIN - Without rashes. HEAD - NC/AT. EYES - PERRL with EOMI bilaterally. Sclera anicteric. EARS - No deformities of external structures noted on gross examination bilaterally. NOSE - Midline and without cyanosis. MOUTH/OROPHARYNX - Without perioral cyanosis. NECK - Neck with FROM. LUNGS - Chest wall symmetric without accessory muscle use, intercostals retractions, or central cyanosis. Normal vesicular breath sounds CTA B/L. No wheezes, rales, or rhonchi appreciated. CARDIAC - RRR with S1/S2. No murmur, rubs, or gallops appreciated. ABDOMEN - Abdominal contour obese without pulsations or visible masses. BS normoactive all four quadrants. No tenderness, palpable masses, hepatosplenomegaly, or ascites noted. EXTREMITIES - No clubbing or peripheral cyanosis. No pretibial edema present. +3/5 radial pulses palpated throughout. NEUROLOGIC - Cranial nerves II through XII grossly intact. PSYCH - A&Ox3 and cooperates fully with examiner. Pt is very pleasant and interacts well with examiner. Results & Data Results & Data Vital Signs (Past 12 Hours) Vital Signs Temp Pulse Pulse Resp BP BP Pulse Ox 07/22/24 06:30 94 H 25 H 87/66 L 96 07/22/24 06:00 36.6 C 95 H 22 91/53 L 96 07/22/24 05:30 36.6 C 95 H 24 112/59 L 97 07/22/24 05:00 36.6 C 93 H 20 107/51 L 97 07/22/24 04:00 36.7 C 87 22 106/62 98 07/22/24 03:30 36.7 C 79 20 90/48 L 98 07/22/24 03:00 36.6 C 78 24 109/47 L 96 07/22/24 02:30 87 20 99/51 L 98 07/22/24 02:00 36.8 C 85 26 H 101/50 L 96 07/22/24 01:00 36.8 C 79 22 104/62 98 07/22/24 00:30 36.8 C 78 24 93/53 L 97 07/22/24 00:00 36.8 C 88 25 H 115/59 L 99 07/21/24 23:33 36.9 C 88 24 108/58 L 98 07/21/24 23:00 36.9 C 86 24 119/40 L 97 07/21/24 22:32 36.8 C 86 24 119/59 L 97 07/21/24 22:00 36.9 C 86 22 119/53 L 96 07/21/24 21:30 36.9 C 82 22 113/74 98 07/21/24 21:00 36.8 C 87 24 116/44 L 92 07/21/24 20:30 36.9 C 79 26 H 103/38 L 93 07/21/24 20:00 36.8 C 95 H 25 H 105/54 L 96 O2 Del Method O2 Flow Rate 07/22/24 06:30 Room Air 07/22/24 06:00 Room Air 07/22/24 05:30 Nasal Cannula 2 07/22/24 05:00 Nasal Cannula 2 07/22/24 04:00 Nasal Cannula 2 07/22/24 03:30 Nasal Cannula 2 07/22/24 03:00 Nasal Cannula 2 07/22/24 02:30 Nasal Cannula 2 07/22/24 02:00 Nasal Cannula 2 07/22/24 01:00 Nasal Cannula 2 07/22/24 00:30 Nasal Cannula 2 07/22/24 00:00 Nasal Cannula 2 07/21/24 23:33 Nasal Cannula 2 07/21/24 23:00 Nasal Cannula 2 07/21/24 22:32 Nasal Cannula 2 07/21/24 22:00 Nasal Cannula 2 07/21/24 21:30 Nasal Cannula 2 07/21/24 21:00 Room Air 07/21/24 20:30 Room Air 07/21/24 20:00 Room Air Coding Level of Care Code 19260 SUB INP/OBS CARE 3/50MIN Diagnoses Acute renal failure N17.9 Acute GI bleeding K92.2 Kidney stones N20.0 Encephalopathy acute G93.40 Shock circulatory R57.9
[2024-07-22] MEDS: HYDROCORTISONE SOD 50 MG in SYRINGE 0 ML IV SCH (07:58)
[2024-07-22] MEDS: MIDODRINE HCL 2.5 MG TAB PO SCH (07:59)
[2024-07-22] MEDS: NOREPINEPHRINE/D5W 4 MG/250 ML PLCT IV SCH (08:13)
--- NOTE | 2024-07-22 09:21 | Gastroenterology Progress Note ---
Date of Service July 22, 2024 Assessment & Plan (1) Black stools: Plan: 68 year old critically ill female w/ history of HTN, HLD, GERD, carotid artery stenosis, CKD stage III, tobacco use disorder admitted to the ICU w/ acute renal failure superimposed on CKD, acute blood loss anemia secondary to dark tarry stools for weeks in the setting of recent initiation of plavix therapy due to recent carotid artery stenosis and CVA. Most recent BM was documented as brown. We discussed diagnostic EGD/Colonoscopy to be performed tomorrow. She is agreeable to EGD evaluation but currently refusing a colonoscopy. She also endorses a recurrent nose bleed this AM. Consider ENT consultation for recurrent nose bleeds Clear liquids today NPO after EGD Sunday - She is currently refusing colonoscopy Continue conservative measures for now w/ BP support IV PPI bolus/drip Trend H&H Monitor and document GI output Transfuse PRN per primary service Hold all NSAIDs Plavix discontinued Appreciate nephrology input Appreciate drupal web developer team input I spent a total of 40 minutes on the date of service in review of patient's record, and previously obtained information in person and appropriate medical visit, discussion and education of plan, with patient and/or caregiver, placing orders for tests/referral/procedures as medically necessary and documentation of pertinent clinical information in patient's medical records for their visit today. Admission and Anticipated Discharge Date Admission Date: July 20, 2024 Supervising Physician Co-Signing Physician Notes I examined the patient and reviewed the medical record, laboratory data and imaging studies. I agree with the assessment and plan of care as suggested by the advanced practice provider. Patient appears comfortable. She has had bowel movements but they have been really greenish-brown in color H&H has been stable of note she had a nasal bleed this morning I had a long discussion with the patient and she is refusing a colonoscopy at the current time. Despite being told of the risk of missing a lesion or having recurrent bleeding but she feels that she has gone through a lot right now and she is not willing to undergo colonoscopy at the current time as the patient is declining a colonoscopy we will go ahead and plan an upper endoscopy tomorrow and meantime also follow her H&H further recommendations after the upper endoscopy Subjective Pt was seen and evaluated, chart reviewed. Feeling well from GI standpoint. Denies abd pain, nausea/vomiting. She had addition brown/green stools. No black or bloody stools. She does have a recurrent nose bleed this AM. Review of Systems Constitutional: All other findings negative except as noted in HPI. Physical Exam Constitutional: WD/WN, vitals as above Respiratory: normal respiratory effort, lungs clear to auscultation Cardiovascular: Rate/Rhythm: regular rate Gastrointestinal (Abdomen): Percussion/Palpation: abdomen soft Skin: no rashes, warm and dry Results & Data Results & Data Vital Signs (Past 12 Hours) Vital Signs Temp Pulse Pulse Resp BP BP Pulse Ox 07/22/24 08:00 07/22/24 08:00 07/22/24 08:00 07/22/24 07:30 93 H 07/22/24 06:30 94 H 25 H 87/66 L 96 07/22/24 06:00 36.6 C 95 H 22 91/53 L 96 07/22/24 05:30 36.6 C 95 H 24 112/59 L 97 07/22/24 05:00 36.6 C 93 H 20 107/51 L 97 07/22/24 04:00 36.7 C 87 22 106/62 98 07/22/24 03:30 36.7 C 79 20 90/48 L 98 07/22/24 03:00 36.6 C 78 24 109/47 L 96 07/22/24 02:30 87 20 99/51 L 98 07/22/24 02:00 36.8 C 85 26 H 101/50 L 96 07/22/24 01:00 36.8 C 79 22 104/62 98 07/22/24 00:30 36.8 C 78 24 93/53 L 97 07/22/24 00:00 36.8 C 88 25 H 115/59 L 99 07/21/24 23:33 36.9 C 88 24 108/58 L 98 07/21/24 23:00 36.9 C 86 24 119/40 L 97 07/21/24 22:32 36.8 C 86 24 119/59 L 97 07/21/24 22:00 36.9 C 86 22 119/53 L 96 07/21/24 21:30 36.9 C 82 22 113/74 98 Pulse Ox O2 Del Method O2 Del Method O2 Flow Rate 07/22/24 08:00 Room Air 07/22/24 08:00 Room Air 07/22/24 08:00 94 Room Air 07/22/24 07:30 07/22/24 06:30 Room Air 07/22/24 06:00 Room Air 07/22/24 05:30 Nasal Cannula 2 07/22/24 05:00 Nasal Cannula 2 07/22/24 04:00 Nasal Cannula 2 07/22/24 03:30 Nasal Cannula 2 07/22/24 03:00 Nasal Cannula 2 07/22/24 02:30 Nasal Cannula 2 07/22/24 02:00 Nasal Cannula 2 07/22/24 01:00 Nasal Cannula 2 07/22/24 00:30 Nasal Cannula 2 07/22/24 00:00 Nasal Cannula 2 07/21/24 23:33 Nasal Cannula 2 07/21/24 23:00 Nasal Cannula 2 07/21/24 22:32 Nasal Cannula 2 07/21/24 22:00 Nasal Cannula 2 07/21/24 21:30 Nasal Cannula 2 Laboratory Results 07/22/24 07/22/24 07/21/24 Range/Units 07:27 04:06 20:24 WBC 11.61 H (4.8-10.8) K/ul RBC 2.97 L (4.20-5.40) M/uL Hgb 8.9 L (12.0-16.0) g/dl Hct 25.2 L (37.0-47.0) % MCV 84.8 (80.0-100.0) fL MCH 30.0 (25.0-34.0) pg MCHC 35.3 (32.0-36.0) g/dL RDW Std Deviation 43.7 (36.4-46.3) fL RDW Coeff of Jolene 14.1 (11.5-14.5) % Plt Count 188 (130-400) K/uL MPV 12.0 (9.4-12.4) fL Immature Gran % (Auto) 0.4 % Neut % (Auto) 70.4 % Lymph % (Auto) 16.3 % [place] % (Auto) 8.9 % Eos % (Auto) 3.7 % Baso % (Auto) 0.3 % Neut # (Auto) 8.17 H (1.40-6.50) K/uL Lymph # (Auto) 1.89 (1.20-3.40) K/uL [place] # (Auto) 1.03 H (0.11-0.59) K/uL Eos # (Auto) 0.43 (0.00-0.50) K/uL Baso # (Auto) 0.04 (0.00-0.20) K/uL Immature Gran # (Auto) 0.05 (0.01-0.20) K/uL Absolute Nucleated RBC 0.04 (0.00-0.12) K/uL Nucleated RBC % (auto) 0.3 % Sodium 140 (136-145) mmol/L Potassium 2.9 L (3.5-5.1) mmol/L Chloride 107 (98-107) mmol/L Carbon Dioxide 16 L (21-32) mmol/L Anion Gap 17 H (3-11) BUN 118 H (6-23) mg/dl Creatinine 9.05 H* D (0.6-1.2) mg/dl Est Cr Clr Drug Dosing 5.7 ml/min eGFR 4.34 BUN/Creatinine Ratio 13.0 (10-20) Glucose 100 H (70-99(Fasting)) mg/dl POC Glucose 111 H 132 H (70-99) mg/dl Calcium 7.8 L (8.6-10.3) mg/dl Phosphorus (2.5-4.9) mg/dl Total Bilirubin 0.4 (0.2-1.0) mg/dl AST 25 (13-39) U/L ALT 14 (7-52) U/L Alkaline Phosphatase 48 (34-104) U/L Total Protein 5.0 L (6.0-8.3) gm/dl Albumin 3.1 L (3.4-5.0) gm/dl Globulin 1.9 L (2.5-4.0) gm/dl Albumin/Globulin Ratio 1.6 (0.9-2) Random Cortisol mcg/dl Hep Bs Antigen (Negative) Hep Bs Antibody Hep Bs Antibody, Quant (>or=10mIU/mL Immune) mIU/mL Hep B Core IgM Ab 07/21/24 07/21/24 07/21/24 Range/Units 17:57 16:23 12:01 WBC 12.96 H (4.8-10.8) K/ul RBC 3.12 L (4.20-5.40) M/uL Hgb 9.3 L 9.4 L (12.0-16.0) g/dl Hct 26.5 L (37.0-47.0) % MCV 84.9 (80.0-100.0) fL MCH 30.1 (25.0-34.0) pg MCHC 35.5 (32.0-36.0) g/dL RDW Std Deviation 43.8 (36.4-46.3) fL RDW Coeff of Jolene 14.2 (11.5-14.5) % Plt Count 195 (130-400) K/uL MPV 12.2 (9.4-12.4) fL Immature Gran % (Auto) 0.5 % Neut % (Auto) 82.2 % Lymph % (Auto) 9.0 % [place] % (Auto) 7.6 % Eos % (Auto) 0.5 % Baso % (Auto) 0.2 % Neut # (Auto) 10.66 H (1.40-6.50) K/uL Lymph # (Auto) 1.16 L (1.20-3.40) K/uL [place] # (Auto) 0.98 H (0.11-0.59) K/uL Eos # (Auto) 0.07 (0.00-0.50) K/uL Baso # (Auto) 0.03 (0.00-0.20) K/uL Immature Gran # (Auto) 0.06 (0.01-0.20) K/uL Absolute Nucleated RBC 0.03 (0.00-0.12) K/uL Nucleated RBC % (auto) 0.2 % Sodium (136-145) mmol/L Potassium (3.5-5.1) mmol/L Chloride (98-107) mmol/L Carbon Dioxide (21-32) mmol/L Anion Gap (3-11) BUN (6-23) mg/dl Creatinine (0.6-1.2) mg/dl Est Cr Clr Drug Dosing ml/min eGFR BUN/Creatinine Ratio (10-20) Glucose (70-99(Fasting)) mg/dl POC Glucose 181 H (70-99) mg/dl Calcium (8.6-10.3) mg/dl Phosphorus (2.5-4.9) mg/dl Total Bilirubin (0.2-1.0) mg/dl AST (13-39) U/L ALT (7-52) U/L Alkaline Phosphatase (34-104) U/L Total Protein (6.0-8.3) gm/dl Albumin (3.4-5.0) gm/dl Globulin (2.5-4.0) gm/dl Albumin/Globulin Ratio (0.9-2) Random Cortisol 16.09 mcg/dl Hep Bs Antigen (Negative) Hep Bs Antibody Hep Bs Antibody, Quant (>or=10mIU/mL Immune) mIU/mL Hep B Core IgM Ab 07/21/24 07/21/24 07/20/24 Range/Units 12:00 11:12 17:55 WBC (4.8-10.8) K/ul RBC (4.20-5.40) M/uL Hgb (12.0-16.0) g/dl Hct (37.0-47.0) % MCV (80.0-100.0) fL MCH (25.0-34.0) pg MCHC (32.0-36.0) g/dL RDW Std Deviation (36.4-46.3) fL RDW Coeff of Jolene (11.5-14.5) % Plt Count (130-400) K/uL MPV (9.4-12.4) fL Immature Gran % (Auto) % Neut % (Auto) % Lymph % (Auto) % [place] % (Auto) % Eos % (Auto) % Baso % (Auto) % Neut # (Auto) (1.40-6.50) K/uL Lymph # (Auto) (1.20-3.40) K/uL [place] # (Auto) (0.11-0.59) K/uL Eos # (Auto) (0.00-0.50) K/uL Baso # (Auto) (0.00-0.20) K/uL Immature Gran # (Auto) (0.01-0.20) K/uL Absolute Nucleated RBC (0.00-0.12) K/uL Nucleated RBC % (auto) % Sodium 140 (136-145) mmol/L Potassium 3.1 L (3.5-5.1) mmol/L Chloride 103 (98-107) mmol/L Carbon Dioxide 16 L (21-32) mmol/L Anion Gap 21 H (3-11) BUN 129 H (6-23) mg/dl Creatinine 10.84 H* D (0.6-1.2) mg/dl Est Cr Clr Drug Dosing 4.7 ml/min eGFR 3.49 BUN/Creatinine Ratio 11.9 (10-20) Glucose 123 H (70-99(Fasting)) mg/dl POC Glucose 126 H (70-99) mg/dl Calcium 8.0 L (8.6-10.3) mg/dl Phosphorus 9.3 H (2.5-4.9) mg/dl Total Bilirubin (0.2-1.0) mg/dl AST (13-39) U/L ALT (7-52) U/L Alkaline Phosphatase (34-104) U/L Total Protein (6.0-8.3) gm/dl Albumin 3.8 (3.4-5.0) gm/dl Globulin (2.5-4.0) gm/dl Albumin/Globulin Ratio (0.9-2) Random Cortisol mcg/dl Hep Bs Antigen (Negative) Hep Bs Antibody Hep Bs Antibody, Quant (>or=10mIU/mL Immune) mIU/mL Hep B Core IgM Ab Pending 07/20/24 Range/Units 13:46 WBC (4.8-10.8) K/ul RBC (4.20-5.40) M/uL Hgb (12.0-16.0) g/dl Hct (37.0-47.0) % MCV (80.0-100.0) fL MCH (25.0-34.0) pg MCHC (32.0-36.0) g/dL RDW Std Deviation (36.4-46.3) fL RDW Coeff of Jolene (11.5-14.5) % Plt Count (130-400) K/uL MPV (9.4-12.4) fL Immature Gran % (Auto) % Neut % (Auto) % Lymph % (Auto) % [place] % (Auto) % Eos % (Auto) % Baso % (Auto) % Neut # (Auto) (1.40-6.50) K/uL Lymph # (Auto) (1.20-3.40) K/uL [place] # (Auto) (0.11-0.59) K/uL Eos # (Auto) (0.00-0.50) K/uL Baso # (Auto) (0.00-0.20) K/uL Immature Gran # (Auto) (0.01-0.20) K/uL Absolute Nucleated RBC (0.00-0.12) K/uL Nucleated RBC % (auto) % Sodium (136-145) mmol/L Potassium (3.5-5.1) mmol/L Chloride (98-107) mmol/L Carbon Dioxide (21-32) mmol/L Anion Gap (3-11) BUN (6-23) mg/dl Creatinine (0.6-1.2) mg/dl Est Cr Clr Drug Dosing ml/min eGFR BUN/Creatinine Ratio (10-20) Glucose (70-99(Fasting)) mg/dl POC Glucose (70-99) mg/dl Calcium (8.6-10.3) mg/dl Phosphorus (2.5-4.9) mg/dl Total Bilirubin (0.2-1.0) mg/dl AST (13-39) U/L ALT (7-52) U/L Alkaline Phosphatase (34-104) U/L Total Protein (6.0-8.3) gm/dl Albumin (3.4-5.0) gm/dl Globulin (2.5-4.0) gm/dl Albumin/Globulin Ratio (0.9-2) Random Cortisol mcg/dl Hep Bs Antigen Negative (Negative) Hep Bs Antibody Immune Hep Bs Antibody, Quant 62.10 (>or=10mIU/mL Immune) mIU/mL Hep B Core IgM Ab PG Care Time/CCT Total # of Minutes Spent Total Time Spent with Patient: Total time spent is greater than 50% in coordination of care (as documented) at patient's floor/unit and/or counseling patient: Coding Level of Care Code 36641 SUB INP/OBS CARE 2/35MIN Diagnoses Black stools K92.1
[2024-07-22] MEDS: FLUDROCORTISONE ACETATE 0.1 MG TAB PO SCH (09:43)
--- NOTE | 2024-07-22 09:48 | Hospitalist Progress Note ---
Date of Service July 22, 2024 Assessment & Plan (1) Metabolic encephalopathy: (2) High anion gap metabolic acidosis: (3) Acute renal failure: (4) Shock circulatory: (5) Acute GI bleeding: Plan This is a Critically Ill 68-year-old female who has a significant past medical history of HTN, HLD, GERD, CKD stage IIIb, tobacco use disorder and depression who presents to ED with concerns of dark tarry stool. Pt reports dark tarry stool for approx 2-3 weeks. Pt anemic and in renal failure, Cr 18 Acute Metabolic Encephalopathy High anion gap metabolic acidosis Acute Renal failure superimposed on CKD Acute blood loss anemia 2/2 GIB Shock - likely in setting of hemorrhagic and hypovolemia, can't rule out sepsis --CT head negative Admitted to ICU for critical care Consent for blood transfusion obtained - 2 units of pRBC on admission vasopressor support - Phenylephrine per ICU - now stopped and started midodrine, hydrocortisone Empiric IV rocephin until sepsis ruled out, CXR negative, UA + 1 bacteruria Baseline Cr 1.6-2, last done on 07/02 was 2.0 ( she did receive IV contrast on 06/25, Cr was 1.9 on that day) Nephrology consulted on admission and pt was started on bicarb drip. Now off bicarb drip, on plasmalyte, pt making good amount of urine. Nephrology following closely. Suspected GIB Acute blood loss anemia also hx of epistaxis hgb 06/2023 12.6, 07/02 was 9.2 pt reports dark stool x 2-3 weeks, no prior hx of endoscopy Pt started on plavix 3 days ago due to outpt w/u regarding CVA and identified to have severe carotid artery stenosis Started on PPI bolus/gtt, cont. GI consulted - plan for EGD/ colonoscopy tmrw Monitor H&H Elevated troponin suspect Type II WV in setting of demand due to shock, will trend and get echo HTN: chronic, hold lisinopril given MYRON/hypotension Carotid artery stenosis: outpt CTA of neck revealed 70 to 90% stenosis of the right ICA and 50 to 70% of the left ICA. She has been referred to vascular and this is why plavix was initiated DVT PPX: SCDS FULL CODE PCP: Lorenza Muñoz Dispo: ICU Admission and Anticipated Discharge Date Admission Date: July 20, 2024 Subjective Pt seen in follow up of encephalopathy, MYRON, anemia, GI bleed Laying in bed in ICU, feeling improved No fever, chills, chest pain, shortness of breath at this time Had BM - stool noted to be brown GI and nephrology consulted and following closely Plan for EGD tmrw/ and poss. colonoscopy - pt is not sure if she wishes to proceed w/ colonoscopy Off bicarb drip, on plasmalyte, making good amount of urine Review of Systems Review of Systems: All systems reviewed & are unremarkable except as noted in Subjective Physical Exam Physical Exam: General : WD/WN F in NAD HEENT: NC/AT Chest CTAB Heart regular Abdomen bowel sound present, soft, nonteder Extremitiesno edema, moves extremities Neuroalert and awake. answers appropriately, no facial asymmetry, moves extremities Results & Data Results & Data Vital Signs (Past 12 Hours) Vital Signs Temp Pulse Pulse Resp BP BP Pulse Ox 07/22/24 08:00 07/22/24 08:00 07/22/24 08:00 07/22/24 07:30 93 H 07/22/24 06:30 94 H 25 H 87/66 L 96 07/22/24 06:00 36.6 C 95 H 22 91/53 L 96 07/22/24 05:30 36.6 C 95 H 24 112/59 L 97 07/22/24 05:00 36.6 C 93 H 20 107/51 L 97 07/22/24 04:00 36.7 C 87 22 106/62 98 07/22/24 03:30 36.7 C 79 20 90/48 L 98 07/22/24 03:00 36.6 C 78 24 109/47 L 96 07/22/24 02:30 87 20 99/51 L 98 07/22/24 02:00 36.8 C 85 26 H 101/50 L 96 07/22/24 01:00 36.8 C 79 22 104/62 98 07/22/24 00:30 36.8 C 78 24 93/53 L 97 07/22/24 00:00 36.8 C 88 25 H 115/59 L 99 07/21/24 23:33 36.9 C 88 24 108/58 L 98 07/21/24 23:00 36.9 C 86 24 119/40 L 97 07/21/24 22:32 36.8 C 86 24 119/59 L 97 07/21/24 22:00 36.9 C 86 22 119/53 L 96 Pulse Ox O2 Del Method O2 Del Method O2 Flow Rate 07/22/24 08:00 Room Air 07/22/24 08:00 Room Air 07/22/24 08:00 94 Room Air 07/22/24 07:30 07/22/24 06:30 Room Air 07/22/24 06:00 Room Air 07/22/24 05:30 Nasal Cannula 2 07/22/24 05:00 Nasal Cannula 2 07/22/24 04:00 Nasal Cannula 2 07/22/24 03:30 Nasal Cannula 2 07/22/24 03:00 Nasal Cannula 2 07/22/24 02:30 Nasal Cannula 2 07/22/24 02:00 Nasal Cannula 2 07/22/24 01:00 Nasal Cannula 2 07/22/24 00:30 Nasal Cannula 2 07/22/24 00:00 Nasal Cannula 2 07/21/24 23:33 Nasal Cannula 2 07/21/24 23:00 Nasal Cannula 2 07/21/24 22:32 Nasal Cannula 2 07/21/24 22:00 Nasal Cannula 2 Laboratory Results 07/22/24 07/22/24 07/21/24 Range/Units 07:27 04:06 20:24 WBC 11.61 H (4.8-10.8) K/ul RBC 2.97 L (4.20-5.40) M/uL Hgb 8.9 L (12.0-16.0) g/dl Hct 25.2 L (37.0-47.0) % MCV 84.8 (80.0-100.0) fL MCH 30.0 (25.0-34.0) pg MCHC 35.3 (32.0-36.0) g/dL RDW Std Deviation 43.7 (36.4-46.3) fL RDW Coeff of Jolene 14.1 (11.5-14.5) % Plt Count 188 (130-400) K/uL MPV 12.0 (9.4-12.4) fL Immature Gran % (Auto) 0.4 % Neut % (Auto) 70.4 % Lymph % (Auto) 16.3 % Ocean % (Auto) 8.9 % Eos % (Auto) 3.7 % Baso % (Auto) 0.3 % Neut # (Auto) 8.17 H (1.40-6.50) K/uL Lymph # (Auto) 1.89 (1.20-3.40) K/uL Ocean # (Auto) 1.03 H (0.11-0.59) K/uL Eos # (Auto) 0.43 (0.00-0.50) K/uL Baso # (Auto) 0.04 (0.00-0.20) K/uL Immature Gran # (Auto) 0.05 (0.01-0.20) K/uL Absolute Nucleated RBC 0.04 (0.00-0.12) K/uL Nucleated RBC % (auto) 0.3 % Sodium 140 (136-145) mmol/L Potassium 2.9 L (3.5-5.1) mmol/L Chloride 107 (98-107) mmol/L Carbon Dioxide 16 L (21-32) mmol/L Anion Gap 17 H (3-11) BUN 118 H (6-23) mg/dl Creatinine 9.05 H* D (0.6-1.2) mg/dl Est Cr Clr Drug Dosing 5.7 ml/min eGFR 4.34 BUN/Creatinine Ratio 13.0 (10-20) Glucose 100 H (70-99(Fasting)) mg/dl POC Glucose 111 H 132 H (70-99) mg/dl Calcium 7.8 L (8.6-10.3) mg/dl Phosphorus (2.5-4.9) mg/dl Total Bilirubin 0.4 (0.2-1.0) mg/dl AST 25 (13-39) U/L ALT 14 (7-52) U/L Alkaline Phosphatase 48 (34-104) U/L Total Protein 5.0 L (6.0-8.3) gm/dl Albumin 3.1 L (3.4-5.0) gm/dl Globulin 1.9 L (2.5-4.0) gm/dl Albumin/Globulin Ratio 1.6 (0.9-2) Random Cortisol mcg/dl Hep Bs Antigen (Negative) Hep Bs Antibody Hep Bs Antibody, Quant (>or=10mIU/mL Immune) mIU/mL Hep B Core IgM Ab 07/21/24 07/21/24 07/21/24 Range/Units 17:57 16:23 12:01 WBC 12.96 H (4.8-10.8) K/ul RBC 3.12 L (4.20-5.40) M/uL Hgb 9.3 L 9.4 L (12.0-16.0) g/dl Hct 26.5 L (37.0-47.0) % MCV 84.9 (80.0-100.0) fL MCH 30.1 (25.0-34.0) pg MCHC 35.5 (32.0-36.0) g/dL RDW Std Deviation 43.8 (36.4-46.3) fL RDW Coeff of Jolene 14.2 (11.5-14.5) % Plt Count 195 (130-400) K/uL MPV 12.2 (9.4-12.4) fL Immature Gran % (Auto) 0.5 % Neut % (Auto) 82.2 % Lymph % (Auto) 9.0 % Ocean % (Auto) 7.6 % Eos % (Auto) 0.5 % Baso % (Auto) 0.2 % Neut # (Auto) 10.66 H (1.40-6.50) K/uL Lymph # (Auto) 1.16 L (1.20-3.40) K/uL Ocean # (Auto) 0.98 H (0.11-0.59) K/uL Eos # (Auto) 0.07 (0.00-0.50) K/uL Baso # (Auto) 0.03 (0.00-0.20) K/uL Immature Gran # (Auto) 0.06 (0.01-0.20) K/uL Absolute Nucleated RBC 0.03 (0.00-0.12) K/uL Nucleated RBC % (auto) 0.2 % Sodium (136-145) mmol/L Potassium (3.5-5.1) mmol/L Chloride (98-107) mmol/L Carbon Dioxide (21-32) mmol/L Anion Gap (3-11) BUN (6-23) mg/dl Creatinine (0.6-1.2) mg/dl Est Cr Clr Drug Dosing ml/min eGFR BUN/Creatinine Ratio (10-20) Glucose (70-99(Fasting)) mg/dl POC Glucose 181 H (70-99) mg/dl Calcium (8.6-10.3) mg/dl Phosphorus (2.5-4.9) mg/dl Total Bilirubin (0.2-1.0) mg/dl AST (13-39) U/L ALT (7-52) U/L Alkaline Phosphatase (34-104) U/L Total Protein (6.0-8.3) gm/dl Albumin (3.4-5.0) gm/dl Globulin (2.5-4.0) gm/dl Albumin/Globulin Ratio (0.9-2) Random Cortisol 16.09 mcg/dl Hep Bs Antigen (Negative) Hep Bs Antibody Hep Bs Antibody, Quant (>or=10mIU/mL Immune) mIU/mL Hep B Core IgM Ab 07/21/24 07/21/24 07/20/24 Range/Units 12:00 11:12 17:55 WBC (4.8-10.8) K/ul RBC (4.20-5.40) M/uL Hgb (12.0-16.0) g/dl Hct (37.0-47.0) % MCV (80.0-100.0) fL MCH (25.0-34.0) pg MCHC (32.0-36.0) g/dL RDW Std Deviation (36.4-46.3) fL RDW Coeff of Jolene (11.5-14.5) % Plt Count (130-400) K/uL MPV (9.4-12.4) fL Immature Gran % (Auto) % Neut % (Auto) % Lymph % (Auto) % Ocean % (Auto) % Eos % (Auto) % Baso % (Auto) % Neut # (Auto) (1.40-6.50) K/uL Lymph # (Auto) (1.20-3.40) K/uL Ocean # (Auto) (0.11-0.59) K/uL Eos # (Auto) (0.00-0.50) K/uL Baso # (Auto) (0.00-0.20) K/uL Immature Gran # (Auto) (0.01-0.20) K/uL Absolute Nucleated RBC (0.00-0.12) K/uL Nucleated RBC % (auto) % Sodium 140 (136-145) mmol/L Potassium 3.1 L (3.5-5.1) mmol/L Chloride 103 (98-107) mmol/L Carbon Dioxide 16 L (21-32) mmol/L Anion Gap 21 H (3-11) BUN 129 H (6-23) mg/dl Creatinine 10.84 H* D (0.6-1.2) mg/dl Est Cr Clr Drug Dosing 4.7 ml/min eGFR 3.49 BUN/Creatinine Ratio 11.9 (10-20) Glucose 123 H (70-99(Fasting)) mg/dl POC Glucose 126 H (70-99) mg/dl Calcium 8.0 L (8.6-10.3) mg/dl Phosphorus 9.3 H (2.5-4.9) mg/dl Total Bilirubin (0.2-1.0) mg/dl AST (13-39) U/L ALT (7-52) U/L Alkaline Phosphatase (34-104) U/L Total Protein (6.0-8.3) gm/dl Albumin 3.8 (3.4-5.0) gm/dl Globulin (2.5-4.0) gm/dl Albumin/Globulin Ratio (0.9-2) Random Cortisol mcg/dl Hep Bs Antigen (Negative) Hep Bs Antibody Hep Bs Antibody, Quant (>or=10mIU/mL Immune) mIU/mL Hep B Core IgM Ab Pending 07/20/24 Range/Units 13:46 WBC (4.8-10.8) K/ul RBC (4.20-5.40) M/uL Hgb (12.0-16.0) g/dl Hct (37.0-47.0) % MCV (80.0-100.0) fL MCH (25.0-34.0) pg MCHC (32.0-36.0) g/dL RDW Std Deviation (36.4-46.3) fL RDW Coeff of Jolene (11.5-14.5) % Plt Count (130-400) K/uL MPV (9.4-12.4) fL Immature Gran % (Auto) % Neut % (Auto) % Lymph % (Auto) % Ocean % (Auto) % Eos % (Auto) % Baso % (Auto) % Neut # (Auto) (1.40-6.50) K/uL Lymph # (Auto) (1.20-3.40) K/uL Ocean # (Auto) (0.11-0.59) K/uL Eos # (Auto) (0.00-0.50) K/uL Baso # (Auto) (0.00-0.20) K/uL Immature Gran # (Auto) (0.01-0.20) K/uL Absolute Nucleated RBC (0.00-0.12) K/uL Nucleated RBC % (auto) % Sodium (136-145) mmol/L Potassium (3.5-5.1) mmol/L Chloride (98-107) mmol/L Carbon Dioxide (21-32) mmol/L Anion Gap (3-11) BUN (6-23) mg/dl Creatinine (0.6-1.2) mg/dl Est Cr Clr Drug Dosing ml/min eGFR BUN/Creatinine Ratio (10-20) Glucose (70-99(Fasting)) mg/dl POC Glucose (70-99) mg/dl Calcium (8.6-10.3) mg/dl Phosphorus (2.5-4.9) mg/dl Total Bilirubin (0.2-1.0) mg/dl AST (13-39) U/L ALT (7-52) U/L Alkaline Phosphatase (34-104) U/L Total Protein (6.0-8.3) gm/dl Albumin (3.4-5.0) gm/dl Globulin (2.5-4.0) gm/dl Albumin/Globulin Ratio (0.9-2) Random Cortisol mcg/dl Hep Bs Antigen Negative (Negative) Hep Bs Antibody Immune Hep Bs Antibody, Quant 62.10 (>or=10mIU/mL Immune) mIU/mL Hep B Core IgM Ab Medications Administered Current Inpatient Medications Dextrose (Dextrose 50% 50 Ml Syringe) 25 - 50 ml IV UD PRN; Protocol PRN Reason: Hypoglycemia Protocol Stop: 08/20/24 16:34 Fludrocortisone Acetate (Fludrocortisone Acetate 0.1 Mg Tab) 0.1 mg PO QAM ROC Stop: 08/21/24 08:59 Last Admin: 07/22/24 09:43 Dose: 0.1 mg Glucagon (Glucagon For Inj 1 Mg Vial) 1 mg SQ UD PRN; Protocol PRN Reason: Hypoglycemia Protocol Stop: 08/20/24 16:34 Glucose (Glucose 40% Gel 15 Gm Tube) 15 - 30 gm PO UD PRN; Protocol PRN Reason: Hypoglycemia Protocol Stop: 08/20/24 16:34 Glucose (Glucose 10 Tab/Tube) 4 - 8 tab PO UD PRN; Protocol PRN Reason: Hypoglycemia Protocol Stop: 08/20/24 16:34 Pantoprazole Sodium 40 mg/ (Dextrose) 100 mls @ 20 mls/hr IV Q5H ROC Stop: 08/19/24 14:29 Last Admin: 07/22/24 05:54 Dose: 8 mg/hr, 20 mls/hr Acetaminophen (Ofirmev) 1,000 mg in 100 mls @ 400 mls/hr IV Q8H PRN PRN Reason: fever, pain Stop: 07/23/24 19:12 Ceftriaxone Sodium (Rocephin) 2,000 mg in 50 mls @ 100 mls/hr IV Q24H ROC Stop: 07/23/24 18:29 Last Infusion: 07/21/24 18:22 Dose: Infused Phenylephrine HCl (Phenylephrine/Nss) 25 mg in 250 mls @ 22.32 mls/hr IV .[id number] ROC; Protocol Stop: 08/20/24 16:44 Last Titration: 07/22/24 07:20 Dose: 0.3 mcg/kg/min, 13.4 mls/hr Parenteral Electrolytes (Plasma-Lyte A Ph 7.4) 1,000 mls @ 75 mls/hr IV .[id number] ROC Stop: 07/23/24 02:59 Last Admin: 07/22/24 02:57 Dose: 75 mls/hr Hydrocortisone Sodium (Succinate 50 mg/ Syringe) 1 mls @ 4 mls/min IV Q6H ROC Stop: 08/21/24 07:14 Last Admin: 07/22/24 07:58 Dose: 4 mls/min Insulin Aspart (Insulin Aspart Per Unit Charge) 0 units SC ACHS ROC Stop: 08/20/24 20:59 Last Admin: 07/22/24 08:51 Dose: Not Given Midodrine (Midodrine Hcl 2.5 Mg Tab) 5 mg PO TID@0800,1200,1700 ROC Stop: 08/21/24 07:59 Last Admin: 07/22/24 07:59 Dose: 5 mg Miscellaneous (Carbohydrates For Hypoglycemia ) 15 - 30 gm PO UD PRN PRN Reason: Hypoglycemia Protocol Stop: 08/20/24 16:34 Ondansetron HCl (Ondansetron Inj 2 Mg/Ml 2 Ml Vial) 4 mg IV Q6H PRN PRN Reason: Nausea Stop: 08/20/24 13:30
--- NOTE | 2024-07-22 09:55 | Nephrology Progress Note ---
Date of Service July 22, 2024 Assessment & Plan Admission and Anticipated Discharge Date Admission Date: July 20, 2024 Subjective Assessment & Plan (1) Acute renal failure: -2/ Severe volume depletion/ GI bleed. MYRON from Severe Vol Depletion/Low BP in the setting of Acute GI bleed. Labs starting to get better. Creat down a lot but still very high at 9+ and BUN >100. K is low at 2.9 so does need more KCL. Got 60 meq so far and will write 20 meq po tid also. Urine output is picking up nicely. had 1275 ml yesterday It appears she does not need dialysis at this time. K is low and getting Some supplement. d/c florinef because of low K Agree with lowering the IVf rate to 75 ml/hr. Already 8 liters +ve so we do have to be careful. Also Maintain hgb > 8 for better renal recovery. Keep Good BP. Check renal panel and CBC about q8hr. Anemia -- sec to GI bleed + MYRON makes it worse. keep HB > 8 w/ blood transfusion. Now 8.9. Possible EGD tomorrow Desmopressin given with MYRON and GI bleed Case complexity high. Plan discussed with ICU, RN and primary team. total time spent 45 mins S--Says feels stronger. Looks more alert. urine 1275 ml yesterday. renal fun ction getting better. Labs better but still very bad. had lot of IVF and also PRBC. making increasing amount of urine Physical Exam Physical Exam: PHYSICAL EXAM: General: awake, alert, but weak HEENT--- mucous membranes very dry Neuro: AAO x 3, speech clear and appropriate Chest: Clear to auscultation, on room air, Cardiac: Regular rate and rhythm, no JVD, S1S2 grade I systolic Murmur no edema GI: Soft non tender : kaufman+ no CVA tenderness, draining light meilssa urine Psych: Normal mood and affect Skin: small ecchymotic areas to bilateral arms Results & Data Vital Signs (Past 12 Hours) Vital Signs Temp Pulse Pulse Resp BP BP Pulse Ox 07/22/24 08:00 07/22/24 08:00 07/22/24 08:00 07/22/24 07:30 93 H 07/22/24 06:30 94 H 25 H 87/66 L 96 07/22/24 06:00 36.6 C 95 H 22 91/53 L 96 07/22/24 05:30 36.6 C 95 H 24 112/59 L 97 07/22/24 05:00 36.6 C 93 H 20 107/51 L 97 07/22/24 04:00 36.7 C 87 22 106/62 98 07/22/24 03:30 36.7 C 79 20 90/48 L 98 07/22/24 03:00 36.6 C 78 24 109/47 L 96 07/22/24 02:30 87 20 99/51 L 98 07/22/24 02:00 36.8 C 85 26 H 101/50 L 96 07/22/24 01:00 36.8 C 79 22 104/62 98 07/22/24 00:30 36.8 C 78 24 93/53 L 97 07/22/24 00:00 36.8 C 88 25 H 115/59 L 99 07/21/24 23:33 36.9 C 88 24 108/58 L 98 07/21/24 23:00 36.9 C 86 24 119/40 L 97 07/21/24 22:32 36.8 C 86 24 119/59 L 97 07/21/24 22:00 36.9 C 86 22 119/53 L 96 Pulse Ox O2 Del Method O2 Del Method O2 Flow Rate 07/22/24 08:00 Room Air 07/22/24 08:00 Room Air 07/22/24 08:00 94 Room Air 07/22/24 07:30 07/22/24 06:30 Room Air 07/22/24 06:00 Room Air 07/22/24 05:30 Nasal Cannula 2 07/22/24 05:00 Nasal Cannula 2 07/22/24 04:00 Nasal Cannula 2 07/22/24 03:30 Nasal Cannula 2 07/22/24 03:00 Nasal Cannula 2 07/22/24 02:30 Nasal Cannula 2 07/22/24 02:00 Nasal Cannula 2 07/22/24 01:00 Nasal Cannula 2 07/22/24 00:30 Nasal Cannula 2 07/22/24 00:00 Nasal Cannula 2 07/21/24 23:33 Nasal Cannula 2 07/21/24 23:00 Nasal Cannula 2 07/21/24 22:32 Nasal Cannula 2 07/21/24 22:00 Nasal Cannula 2
[2024-07-22 12:23] LABS: Hematocrit (blood only) 27.7 % (37.0-47.0); Hemoglobin 9.7 g/dl (12.0-16.0); Mean Corpuscular Hemoglobin 29.9 pg (25.0-34.0); Mean Corpuscular Volume 85.5 fL (80.0-100.0); Mean Platelet Volume 12.1 fL (9.4-12.4); Nucleated RBC # (auto) 0.04 K/uL (0.00-0.12); Nucleated RBC % (auto) 0.3 %; Platelet Count 206 K/uL (130-400); RDW Coefficient of Variation 14.5 % (11.5-14.5); RDW Standard Deviation 45.1 fL (36.4-46.3); Red Blood Count 3.24 M/uL (4.20-5.40); White Blood Count 11.84 K/ul (4.8-10.8)
[2024-07-22] MEDS: OXYMETAZOLINE 0.05% 30 ML BTL ONE (14:02)
[2024-07-22] MEDS ORDERED: OXYMETAZOLINE 0.05% 30 ML BTL PRN (14:04)
[2024-07-22] MEDS: POTASSIUM CHLORIDE PWD 20 MEQ PACK PO SCH (14:07)
[2024-07-22 18:19] LABS: Hematocrit (blood only) 28.6 % (37.0-47.0); Hemoglobin 9.8 g/dl (12.0-16.0); Mean Corpuscular Hemoglobin 29.7 pg (25.0-34.0); Mean Corpuscular Hgb Conc 34.3 g/dL (32.0-36.0); Mean Corpuscular Volume 86.7 fL (80.0-100.0); Mean Platelet Volume 12.1 fL (9.4-12.4); Nucleated RBC # (auto) 0.03 K/uL (0.00-0.12); Nucleated RBC % (auto) 0.3 %; Platelet Count 198 K/uL (130-400); RDW Coefficient of Variation 14.7 % (11.5-14.5); White Blood Count 10.34 K/ul (4.8-10.8)
[2024-07-22 18:49] LABS: Calcium 7.7 mg/dl (8.6-10.3); Creatinine Clr Calc Pharmacy 7.1 ml/min; Potassium 3.8 mmol/L (3.5-5.1)
[2024-07-23 04:57] LABS: Basophils # (auto) 0.01 K/uL (0.00-0.20); Basophils % (auto) 0.1 %; Immature Granulocytes # (auto) 0.13 K/uL (0.01-0.20); Immature Granulocytes % (auto) 1.3 %; Lymphocytes # (auto) 0.99 K/uL (1.20-3.40); Lymphocytes % (auto) 10.2 %; Mean Corpuscular Hemoglobin 29.9 pg (25.0-34.0); Mean Corpuscular Hgb Conc 34.6 g/dL (32.0-36.0); Mean Corpuscular Volume 86.4 fL (80.0-100.0); Mean Platelet Volume 12.3 fL (9.4-12.4); Monocytes # (auto) 0.36 K/uL (0.11-0.59); Monocytes % (auto) 3.7 %; Neutrophils # (auto) 8.21 K/uL (1.40-6.50); Neutrophils % (auto) 84.7 %; Nucleated RBC # (auto) 0.03 K/uL (0.00-0.12); Nucleated RBC % (auto) 0.3 %; Platelet Count 205 K/uL (130-400); RDW Coefficient of Variation 14.7 % (11.5-14.5); RDW Standard Deviation 46.3 fL (36.4-46.3); Red Blood Count 3.01 M/uL (4.20-5.40)
[2024-07-23 05:36] LABS: Albumin Globulin Ratio 1.3 (0.9-2); BUN Creatinine Ratio 15.7 (10-20); Bilirubin,Total 0.3 mg/dl (0.2-1.0); Calcium 7.7 mg/dl (8.6-10.3); Creatinine Clr Calc Pharmacy 8.2 ml/min; Globulin 2.4 gm/dl (2.5-4.0); Potassium 3.6 mmol/L (3.5-5.1); Total Protein 5.4 gm/dl (6.0-8.3)
--- NOTE | 2024-07-23 07:01 | Anesthesiology Consultation ---
Date of Service July 23, 2024 Assessment & Plan Chart Review Chart Review: Acceptable Risk for Surgery Consults Requested none ASA [id number] Proposed Anesthesia Anesthesia Type: MAC Risk / Benefits Reviewed With: PT / POA / Parent / Guardian, Accepts Plan and Informed Consent Obtained Additional Comments: aware of sig anes risks including repeat cva,mi, and accepts History Surgery Operation Date: 07/23/24 17:10 Proposed Procedures p Esophagogastroduodenoscopy Suzy Almonte MD Height/Weight Height: 5 ft 3 in Weight: 72.1 kg Allergies Allergy/AdvReac Type Severity Reaction Status Date / Time amoxicillin Allergy Unknown vomiting Verified 07/23/24 10:06 Medications Home Medications Medication Instructions Recorded Confirmed Last Taken atorvastatin 40 mg tablet 80 mg PO PM 08/25/19 07/20/24 09/10/19 duloxetine 60 mg capsule,delayed 60 mg PO UD 08/25/19 07/20/24 09/10/19 release (Cymbalta) pantoprazole 40 mg tablet,delayed 40 mg PO PM 08/25/19 07/20/24 09/10/19 release allopurinol 100 mg tablet 100 mg PO DAILY 07/20/24 07/20/24 Unknown bupropion HCl 300 mg 24 hr tablet, 300 mg PO DAILY 07/20/24 07/20/24 Unknown extended release clopidogrel 75 mg tablet 75 mg PO DAILY 07/20/24 07/23/24 07/20/24 famotidine 20 mg tablet 20 mg PO DAILY 07/20/24 07/20/24 Unknown lisinopril 40 mg tablet 40 mg PO DAILY 07/20/24 07/20/24 Unknown ondansetron HCl 4 mg tablet 4 mg PO Q6H PRN n/v 07/20/24 07/20/24 Unknown potassium citrate 10 mEq (1,080 10 meq PO BID 07/20/24 07/20/24 Unknown mg) tablet,extended release Active Medications Generic Name Dose Route Start Last Admin Trade Name Freq PRN Reason Stop Dose Admin Pantoprazole Sodium 40 mg/ 100 mls @ 20 mls/hr 07/20/24 14:30 07/23/24 08:11 Dextrose IV 08/19/24 14:29 8 mg/hr Q5H ROC 20 mls/hr Administration 8 MG/HR Ceftriaxone Sodium 2,000 mg in 50 mls @ 100 mls/hr 07/21/24 18:30 07/22/24 18:10 Rocephin IV 07/23/24 18:29 Infused Q24H ROC Infusion Hydrocortisone Sodium 1 mls @ 4 mls/min 07/23/24 08:00 07/23/24 08:48 Succinate 50 mg/ Syringe IV 08/22/24 07:59 4 mls/min Q12H ROC Administration Insulin Aspart 0 units 07/21/24 21:00 07/23/24 08:25 Insulin Aspart Per Unit Charge SC 08/20/24 20:59 Not Given ACHS ROC Potassium Chloride 20 meq 07/22/24 14:00 07/23/24 08:12 Potassium Chloride Pwd 20 Meq Pack PO 08/21/24 13:59 20 meq TID ROC Administration NPO Date Last Intake of Fluids: 07/23/24 Time Last Intake of Fluids: 08:30 Date Last Intake of Solids: 07/22/24 Time Last Intake of Solids: 19:00 Past Medical History Medical History Degenerative disc disease Chronic back pain GERD (gastroesophageal reflux disease) Cardiac murmur DOESNT FOLLOW CARDIOLOGY Hypertension Hyperlipidemia current ARF, severe anemia, hypotn with recent CVA 06/19/24 and new initiation of plavix in ICU on pheny gtt for BP support until yesterday. left upper visual field deficits post cva but no other defecits. new dx severe with mild fuchs at home but no cp or syncope. Exercise / Class Metabolic Activity III < 4 Walking/Shop/Light housework Past Family History Family History Mother Diabetes Father Lung cancer Past Surgical History Surgical History History of lithotripsy Past Anesthesia History No Hx of Anesthesia Complications and No Family Hx of Anesthesia Complications History of PONV No Hx of PONV and No Hx of Motion Sickness Social History Smoking Status: Former smoker tobacco type: cigarettes Smoking cigarettes per day: 1 PPD Do You Dip or Chew Tobacco: No Hx Alcohol Use: No Hx Substance Use: No substance use type: does not use Physical Exam Vital Signs Last Vital Signs Temp 36.2 C L 07/23/24 10:07 Pulse 90 07/23/24 10:07 Resp 16 07/23/24 10:07 BP 149/68 H 07/23/24 10:07 Pulse Ox 99 07/23/24 10:07 O2 Del Method Room Air 07/23/24 10:07 O2 Flow Rate 2 07/22/24 05:30 ENMT Mouth: + dentition abnormality (missing mult teeth including left upper incisor), + dental caries, + poor dentition and + chipped teeth; no TMJ abnormality Thyromental Distance: > or= 3.5 Finger Breadths Mallampati Class: II Neck normal visual inspection and trachea midline; neck extension not limited Respiratory normal respiratory effort Auscultation: lungs clear to auscultation bilaterally Cardiovascular Rate/Rhythm: regular rate and regular rhythm Heart Sounds: + murmur (4/6 jesus) Musculoskeletal Spine: normal cervical ROM Extremities: full ROM of extremities Neurologic moves all extremities Psychiatric Orientation: alert and oriented x 3 Testing Laboratory Results 07/23/24 04:18 07/23/24 04:18 PT 11.4 Seconds (9.0-12.0) 07/20/24 21:03 INR 1.1 (0.9-1.1) 07/20/24 21:03 APTT 26 Seconds (21-31) 07/20/24 21:03 Urine Color Yellow 07/20/24 14: Urine Appearance Cloudy (Clear) A 07/20/24 14:26 Urine pH 5.0 (4.5-7.5) 07/20/24 14: Ur Specific [place] 1.016 (1.000-1.030) 07/20/24 14:26 Urine Protein 2+ (Negative) H 07/20/24 14:26 Urine Glucose (UA) Negative (Negative) 07/20/24 14:26 Urine Ketones Trace (Negative) H 07/20/24 14: Urine Nitrite Negative (Negative) 07/20/24 14: Ur Leukocyte Esterase 2+ (Negative) H 07/20/24 14:26 Urine WBC (Auto) 11-20 /hpf (0-5) H 07/20/24 14:26 Urine RBC (Auto) 11-20 /hpf (0-2) H 07/20/24 14:26 U Hyaline Cast (Auto) >20 /lpf (0-2) H 07/20/24 14:26 U Epithel Cells (Auto) 6-10 /hpf (0-2) H 07/20/24 14:26 Urine Bacteria (Auto) 1+ (None Seen) H 07/20/24 14:26 Blood Type A Negative 07/20/24 13:44 Antibody Screen NEGATIVE 07/20/24 13:44 07/20/24 17:53 Aerobic Blood Culture - Preliminary Blood No growth in Aerobic bottle after 48 hours. Anaerobic Blood Culture - Preliminary No growth in Anaerobic bottle after 48 hours. 07/20/24 17:53 Aerobic Blood Culture - Preliminary Blood No growth in Aerobic bottle after 48 hours. Anaerobic Blood Culture - Preliminary No growth in Anaerobic bottle after 48 hours. 07/20/24 14:26 Urine Culture - Final Urine,Straight Cath No growth - less than 1,000 colonies/mL. 07/23/24 08:20 POC Glucose 142 H Electrocardiogram Date: 07/20/24 Vent. Rate : 107 BPM Atrial Rate : 107 BPM P-R Int : 162 ms QRS Dur : 110 ms QT Int : 406 ms P-R-T Axes : 80 -27 48 degrees QTcB Int : 542 ms Sinus tachycardia with frequent , and consecutive Premature ventricular complexes Incomplete right bundle branch block Prolonged QT Abnormal ECG Chest X-Ray Date: 07/20/24 Findings: + NAD Echocardiogram Date: 07/21/24 EF: >70% LV Function: hyperdynam RWMA: + none Other Findings: + LVH (mod concen) and + diastolic dysfunction (gr1) Valvular Disease: + (severe) sev mitral calcification, mild TR, mild pulm HTN PAP 45-50mmHg
--- NOTE | 2024-07-23 07:54 | Critical Care Progress Note ---
Date of Service July 23, 2024 Assessment & Plan (1) Acute renal failure: (2) Acute GI bleeding: (3) Kidney stones: (4) Encephalopathy acute: (5) Shock circulatory: Plan Reason Critically Ill: 68-year-old female with chronic kidney disease, reflux, and recent stroke requiring Plavix presenting with acute renal failure and probable GI bleed. 24-hour events: Patient's been off pressors for greater than 24 hours. Hemoglobin has been stable. She is n.p.o. for EGD today. Creatinine continues to improve. Urine output marginal Recommendations: Neuro -metabolic encephalopathy appears resolved. Continue to follow clinically at this point in time. Holding duloxetine and bupropion. Cardiac -patient presented with hypovolemic/hemorrhagic shock. Echo unrevealing. Responded appropriately to midodrine and stress dose steroids. Taper steroids to off over the next 3 to 4 days. Respiratory -no current issues. GI -probable upper GI bleed. IV PPI. EGD today. Additional management per GI RENAL/LYTES -continues to slightly improve. Management per nephrology -no current issues ENDO - relative adrenal insufficiency. Decrease hydrocortisone to 50 mg IV every 12 with plans to taper/discontinue over the next 2 to 3 days. HEME -anemia due to acute blood loss. CBC stable. ID -no current issues. Follow clinically. --Prophylaxis VTE: SCDs GI: Pantoprazole Lines: Peripheral Diet: N.p.o. Patient's critical care issues are resolved. Okay to transfer to the floor. Critical care services will sign off. Feel free to contact us with questions or concerns Admission and Anticipated Discharge Date Admission Date: July 20, 2024 Subjective Patient seen and examined. EMR reviewed. Discussed with bedside critical care nurse and on multidisciplinary rounds. The patient is awake alert and conversant. She offers no complaints. She feels she may be slightly constipated. She is very hungry as she is n.p.o. for an EGD today. No nausea or vomiting. She is hemodynamically stable to slightly hypertensive now. Review of Systems Review of Systems: All systems reviewed & are unremarkable except as noted in Subjective Physical Exam Constitutional: WD/WN, vitals as above Neck: trachea midline, no thyromegaly Respiratory: normal respiratory effort, lungs clear to auscultation Cardiovascular: RRR, no murmur, no edema Gastrointestinal (Abdomen): normal bowel sounds, soft, nontender, no hepatosplenomegaly Musculoskeletal: Extremities: extremities normal to inspection Skin: no rashes, warm and dry Neurologic: Nonfocal exam Lymphatic: no cervical lymphadenopathy Results & Data Results & Data Vital Signs (Past 12 Hours) Vital Signs Temp Pulse Resp BP Pulse Ox O2 Del Method 07/23/24 06:00 84 21 133/72 94 Room Air 07/23/24 05:00 86 22 145/71 H 94 Room Air 07/23/24 04:00 36.5 C 82 24 132/78 97 Room Air 07/23/24 03:00 81 19 132/63 97 Room Air 07/23/24 02:00 78 17 131/74 97 Room Air 07/23/24 01:00 75 19 134/66 96 Room Air 07/23/24 00:00 36.4 C L 75 21 116/97 97 Room Air 07/22/24 23:00 76 21 133/93 98 Room Air 07/22/24 22:00 73 25 H 118/62 99 Room Air 07/22/24 21:00 79 22 117/65 100 Room Air 07/22/24 20:00 36.6 C 73 22 134/40 L 99 Room Air Critical Care Results & Data Vital Signs (Past 12 Hours) Vital Signs Temp Pulse Resp BP Pulse Ox O2 Del Method 07/23/24 06:00 84 21 133/72 94 Room Air 07/23/24 05:00 86 22 145/71 H 94 Room Air 07/23/24 04:00 36.5 C 82 24 132/78 97 Room Air 07/23/24 03:00 81 19 132/63 97 Room Air 07/23/24 02:00 78 17 131/74 97 Room Air 07/23/24 01:00 75 19 134/66 96 Room Air 07/23/24 00:00 36.4 C L 75 21 116/97 97 Room Air 07/22/24 23:00 76 21 133/93 98 Room Air 07/22/24 22:00 73 25 H 118/62 99 Room Air 07/22/24 21:00 79 22 117/65 100 Room Air 07/22/24 20:00 36.6 C 73 22 134/40 L 99 Room Air Lab & Micro Results (Past 24 Hours) RBC 3.01 M/uL (4.20-5.40) L 07/23/24 WBC 9.70 K/ul (4.8-10.8) 07/23/24 Hgb 9.0 g/dl (12.0-16.0) L 07/23/24 Hct 26.0 % (37.0-47.0) L 07/23/24 MCV 86.4 fL (80.0-100.0) 07/23/24 MCH 29.9 pg (25.0-34.0) 07/23/24 MCHC 34.6 g/dL (32.0-36.0) 07/23/24 RDW Standard Deviation 46.3 fL (36.4-46.3) 07/23/24 RDW Coefficient of Variation 14.7 % (11.5-14.5) H 07/23/24 Plt Count 205 K/uL (130-400) 07/23/24 MPV 12.3 fL (9.4-12.4) 07/23/24 Nucleated Red Blood Cells % (auto) 0.3 % 07/23 Nucleated RBC Absolute Count (auto) 0.03 K/uL (0.00-0.12) 1 09/22/23 Neutrophils (%) (Auto) 84.7 % 07/23/24 Lymphocytes (%) (Auto) 10.2 % 07/23/24 Monocytes # (Auto) 0.36 K/uL (0.11-0.59) 07/23/24 Eosinophils # (Auto) 0.00 K/uL (0.00-0.50) 07/23/24 Immature Granulocyte % (Auto) 1.3 % 07/23/24 Neutrophils # (Auto) 8.21 K/uL (1.40-6.50) H 07/23/24 Lymphocytes # (Auto) 0.99 K/uL (1.20-3.40) L 07/23/24 Monocytes # (Auto) 0.36 K/uL (0.11-0.59) 07/23/24 Eosinophils # (Auto) 0.00 K/uL (0.00-0.50) 07/23/24 Basophils # (Auto) 0.01 K/uL (0.00-0.20) 07/23/24 Immature Granulocyte # (Auto) 0.13 K/uL (0.01-0.20) 4 Na 139 mmol/L (136-145) 07/23/24 K 3.6 mmol/L (3.5-5.1) 07/23/24 Cl 108 mmol/L (98-107) H 07/23/24 CO2 15 mmol/L (21-32) L 07/23/24 Anion Gap 16 (3-11) H 07/23/24 BUN 98 mg/dl (6-23) H 07/23/24 Creatinine 6.26 mg/dl (0.6-1.2) H* 07/23/24 BUN/Creatinine Ratio 15.7 (10-20) 07/23/24 Glu 147 mg/dl (70-99(Fasting)) H 07/23/24 Ca 7.7 mg/dl (8.6-10.3) L 07/23/24 Total Bilirubin 0.3 mg/dl (0.2-1.0) 07/23/24 AST 17 U/L (13-39) 07/23/24 ALT 16 U/L (7-52) 07/23/24 Alkaline Phosphatase 55 U/L (34-104) 07/23/24 TP 5.4 gm/dl (6.0-8.3) L 07/23/24 Albumin 3.0 gm/dl (3.4-5.0) L 07/23/24 Globulin 2.4 gm/dl (2.5-4.0) L 07/23/24 Albumin/Globulin Ratio 1.3 (0.9-2) 07/23/24 Calcium Level 7.7 mg/dl (8.6-10.3) L 07/23/24 04:18 Microbiology 07/20/24 17:53 Aerobic Blood Culture - Preliminary Blood No growth in Aerobic bottle after 48 hours. Anaerobic Blood Culture - Preliminary No growth in Anaerobic bottle after 48 hours. 07/20/24 17:53 Aerobic Blood Culture - Preliminary Blood No growth in Aerobic bottle after 48 hours. Anaerobic Blood Culture - Preliminary No growth in Anaerobic bottle after 48 hours. 07/20/24 14:26 Urine Culture - Final Urine,Straight Cath No growth - less than 1,000 colonies/mL. I & O Totals 24 Hours 07/22/24 07/23/24 07/24/24 06:59 06:59 06:59 Intake Total 7112.167 / 7112.167 2683.416 / 2683.416 Output Total 1828 / 1828 1021 / 1021 Balance 5284.167 / 5284.167 1662.416 / 1662.416 Cumulative 07/20/24 13:14 thru 07/23/24 07:01 Intake Total 95765.250 Output Total 3640 Balance 20077.250 RT Ventilator Mngmt (Last Documented) Ventilator Ordered Settings Respiratory Rate 21 07/23/24 06:00 Ventilator - PT Measurements Respiratory Rate 21 Coding Level of Care Code 98770 SUB INP/OBS CARE 3/50MIN Diagnoses Acute renal failure N17.9 Acute GI bleeding K92.2 Kidney stones N20.0 Encephalopathy acute G93.40 Shock circulatory R57.9
[2024-07-23] MEDS: POTASSIUM CHLORIDE 20 MEQ/15 ML UDC PO STA (08:14)
[2024-07-23] MEDS: HYDROCORTISONE SOD 50 MG in SYRINGE 0 ML IV SCH (08:48)
--- NOTE | 2024-07-23 09:06 | Gastroenterology Progress Note ---
Date of Service July 23, 2024 Assessment & Plan (1) Black stools: Plan: 68 year old critically ill female w/ history of HTN, HLD, GERD, carotid artery stenosis, CKD stage III, tobacco use disorder admitted to the ICU w/ acute renal failure superimposed on CKD, acute blood loss anemia secondary to dark tarry stools for weeks in the setting of recent initiation of plavix therapy due to recent carotid artery stenosis and CVA. Most recent BM was documented as brown. We discussed diagnostic EGD/Colonoscopy to be performed. She is agreeable to EGD evaluation but currently refusing a colonoscopy. Please maintain NPO status for EGD evaluation Continue conservative measures for now w/ BP support IV PPI bolus/drip Trend H&H Monitor and document GI output Transfuse PRN per primary service Hold all NSAIDs Plavix discontinued Appreciate nephrology input Appreciate hand candle dipper team input Thank you for allowing us to participate in the care of this patient. Please call with any acute changes, questions or concerns. Please see addendum below with additional recommendation from my supervising physician. Admission and Anticipated Discharge Date Admission Date: July 20, 2024 Supervising Physician Co-Signing Physician Notes I examined the patient and reviewed the medical record, laboratory data and imaging studies. I agree with the assessment and plan of care as suggested by the advanced practice provider. Will plan EGD and furthjer recs after EGD Subjective Pt was seen and evaluated, chart reviewed. Agreeable to EGD. Remains NPO. No BM's HGB stable. Review of Systems Review of Systems: All other findings negative except as noted in HPI. Physical Exam Constitutional: WD/WN, vitals as above Respiratory: normal respiratory effort Cardiovascular: Rate/Rhythm: regular rate Gastrointestinal (Abdomen): normal bowel sounds, soft, nontender, no hepatosplenomegaly Skin: no rashes, warm and dry Results & Data Results & Data Vital Signs (Past 12 Hours) Vital Signs Temp Pulse Pulse Resp BP BP Pulse Ox 07/23/24 08:00 155/78 H 07/23/24 08:00 82 23 92 07/23/24 08:00 07/23/24 07:36 78 22 94 07/23/24 07:13 152/69 H 07/23/24 07:12 83 25 H 98 07/23/24 07:00 81 30 H 97 07/23/24 06:00 84 21 133/72 94 07/23/24 05:00 86 22 145/71 H 94 07/23/24 04:00 36.5 C 82 24 132/78 97 07/23/24 03:00 81 19 132/63 97 07/23/24 02:00 78 17 131/74 97 07/23/24 01:00 75 19 134/66 96 07/23/24 00:00 36.4 C L 75 21 116/97 97 07/22/24 23:00 76 21 133/93 98 07/22/24 22:00 73 25 H 118/62 99 Pulse Ox O2 Del Method O2 Del Method 07/23/24 08:00 07/23/24 08:00 07/23/24 08:00 94 Room Air 07/23/24 07:36 07/23/24 07:13 07/23/24 07:12 07/23/24 07:00 07/23/24 06:00 Room Air 07/23/24 05:00 Room Air 07/23/24 04:00 Room Air 07/23/24 03:00 Room Air 07/23/24 02:00 Room Air 07/23/24 01:00 Room Air 07/23/24 00:00 Room Air 07/22/24 23:00 Room Air 07/22/24 22:00 Room Air Laboratory Results 07/23/24 07/23/24 07/22/24 Range/Units 08:20 04:18 20:09 WBC 9.70 (4.8-10.8) K/ul RBC 3.01 L (4.20-5.40) M/uL Hgb 9.0 L (12.0-16.0) g/dl Hct 26.0 L (37.0-47.0) % MCV 86.4 (80.0-100.0) fL MCH 29.9 (25.0-34.0) pg MCHC 34.6 (32.0-36.0) g/dL RDW Std Deviation 46.3 (36.4-46.3) fL RDW Coeff of Jolene 14.7 H (11.5-14.5) % Plt Count 205 (130-400) K/uL MPV 12.3 (9.4-12.4) fL Immature Gran % (Auto) 1.3 % Neut % (Auto) 84.7 % Lymph % (Auto) 10.2 % [place] % (Auto) 3.7 % Eos % (Auto) 0.0 % Baso % (Auto) 0.1 % Neut # (Auto) 8.21 H (1.40-6.50) K/uL Lymph # (Auto) 0.99 L (1.20-3.40) K/uL [place] # (Auto) 0.36 (0.11-0.59) K/uL Eos # (Auto) 0.00 (0.00-0.50) K/uL Baso # (Auto) 0.01 (0.00-0.20) K/uL Immature Gran # (Auto) 0.13 (0.01-0.20) K/uL Absolute Nucleated RBC 0.03 (0.00-0.12) K/uL Nucleated RBC % (auto) 0.3 % Sodium 139 (136-145) mmol/L Potassium 3.6 (3.5-5.1) mmol/L Chloride 108 H (98-107) mmol/L Carbon Dioxide 15 L (21-32) mmol/L Anion Gap 16 H (3-11) BUN 98 H (6-23) mg/dl Creatinine 6.26 H* D (0.6-1.2) mg/dl Est Cr Clr Drug Dosing 8.2 ml/min eGFR 6.75 BUN/Creatinine Ratio 15.7 (10-20) Glucose 147 H (70-99(Fasting)) mg/dl POC Glucose 142 H 154 H (70-99) mg/dl Calcium 7.7 L (8.6-10.3) mg/dl Total Bilirubin 0.3 (0.2-1.0) mg/dl AST 17 (13-39) U/L ALT 16 (7-52) U/L Alkaline Phosphatase 55 (34-104) U/L Total Protein 5.4 L (6.0-8.3) gm/dl Albumin 3.0 L (3.4-5.0) gm/dl Globulin 2.4 L (2.5-4.0) gm/dl Albumin/Globulin Ratio 1.3 (0.9-2) Hep B Core IgM Ab (NON-REACTIVE) Crossmatch 11/26/24 11/26/24 11/26/24 Range/Units 18:04 16:15 11:55 WBC 10.34 11.84 H (4.8-10.8) K/ul RBC 3.30 L 3.24 L (4.20-5.40) M/uL Hgb 9.8 L 9.7 L (12.0-16.0) g/dl Hct 28.6 L 27.7 L (37.0-47.0) % MCV 86.7 85.5 (80.0-100.0) fL MCH 29.7 29.9 (25.0-34.0) pg MCHC 34.3 35.0 (32.0-36.0) g/dL RDW Std Deviation 47.0 H 45.1 (36.4-46.3) fL RDW Coeff of Jolene 14.7 H 14.5 (11.5-14.5) % Plt Count 198 206 (130-400) K/uL MPV 12.1 12.1 (9.4-12.4) fL Immature Gran % (Auto) % Neut % (Auto) % Lymph % (Auto) % [place] % (Auto) % Eos % (Auto) % Baso % (Auto) % Neut # (Auto) (1.40-6.50) K/uL Lymph # (Auto) (1.20-3.40) K/uL [place] # (Auto) (0.11-0.59) K/uL Eos # (Auto) (0.00-0.50) K/uL Baso # (Auto) (0.00-0.20) K/uL Immature Gran # (Auto) (0.01-0.20) K/uL Absolute Nucleated RBC 0.03 0.04 (0.00-0.12) K/uL Nucleated RBC % (auto) 0.3 0.3 % Sodium 138 (136-145) mmol/L Potassium 3.8 D (3.5-5.1) mmol/L Chloride 108 H (98-107) mmol/L Carbon Dioxide 15 L (21-32) mmol/L Anion Gap 15 H (3-11) BUN 101 H (6-23) mg/dl Creatinine 7.22 H* D (0.6-1.2) mg/dl Est Cr Clr Drug Dosing 7.1 ml/min eGFR 5.69 BUN/Creatinine Ratio 14.0 (10-20) Glucose 207 H (70-99(Fasting)) mg/dl POC Glucose 181 H (70-99) mg/dl Calcium 7.7 L (8.6-10.3) mg/dl Total Bilirubin (0.2-1.0) mg/dl AST (13-39) U/L ALT (7-52) U/L Alkaline Phosphatase (34-104) U/L Total Protein (6.0-8.3) gm/dl Albumin (3.4-5.0) gm/dl Globulin (2.5-4.0) gm/dl Albumin/Globulin Ratio (0.9-2) Hep B Core IgM Ab (NON-REACTIVE) Crossmatch 07/22/24 07/20/24 07/20/24 Range/Units 11:28 17:55 13:44 WBC (4.8-10.8) K/ul RBC (4.20-5.40) M/uL Hgb (12.0-16.0) g/dl Hct (37.0-47.0) % MCV (80.0-100.0) fL MCH (25.0-34.0) pg MCHC (32.0-36.0) g/dL RDW Std Deviation (36.4-46.3) fL RDW Coeff of Jolene (11.5-14.5) % Plt Count (130-400) K/uL MPV (9.4-12.4) fL Immature Gran % (Auto) % Neut % (Auto) % Lymph % (Auto) % [place] % (Auto) % Eos % (Auto) % Baso % (Auto) % Neut # (Auto) (1.40-6.50) K/uL Lymph # (Auto) (1.20-3.40) K/uL [place] # (Auto) (0.11-0.59) K/uL Eos # (Auto) (0.00-0.50) K/uL Baso # (Auto) (0.00-0.20) K/uL Immature Gran # (Auto) (0.01-0.20) K/uL Absolute Nucleated RBC (0.00-0.12) K/uL Nucleated RBC % (auto) % Sodium (136-145) mmol/L Potassium (3.5-5.1) mmol/L Chloride (98-107) mmol/L Carbon Dioxide (21-32) mmol/L Anion Gap (3-11) BUN (6-23) mg/dl Creatinine (0.6-1.2) mg/dl Est Cr Clr Drug Dosing ml/min eGFR BUN/Creatinine Ratio (10-20) Glucose (70-99(Fasting)) mg/dl POC Glucose 139 H (70-99) mg/dl Calcium (8.6-10.3) mg/dl Total Bilirubin (0.2-1.0) mg/dl AST (13-39) U/L ALT (7-52) U/L Alkaline Phosphatase (34-104) U/L Total Protein (6.0-8.3) gm/dl Albumin (3.4-5.0) gm/dl Globulin (2.5-4.0) gm/dl Albumin/Globulin Ratio (0.9-2) Hep B Core IgM Ab NON-REACTIVE (NON-REACTIVE) Crossmatch See Detail PG Care Time/CCT Total # of Minutes Spent Total Time Spent with Patient: Total time spent is greater than 50% in coordination of care (as documented) at patient's floor/unit and/or counseling patient: Coding Level of Care Code None Diagnoses Black stools K92.1
--- NOTE | 2024-07-23 09:20 | Nephrology Progress Note ---
Date of Service July 23, 2024 Assessment & Plan Admission and Anticipated Discharge Date Admission Date: July 20, 2024 Subjective Assessment & Plan (1) Acute renal failure: -2/ Severe volume depletion/ GI bleed. MYRON from Severe Vol Depletion/Low BP in the setting of Acute GI bleed. Labs starting to get better. Creat down a lot but still very high at 6+ and BUN >90. Urine output is picking up nicely. had 1275 ml yesterday It appears she does not need dialysis at this time. K is normal today. Stop IVf once NPO is removed. Already 13 liters +ve so we do have to be careful. No more iv fluid. If needed can give lasix. Also Maintain hgb > 8 for better renal recovery. Keep Good BP. Now is good and No pressors for > 24 hrs Check renal panel and CBC daily Anemia -- sec to GI bleed + MYRON makes it worse. keep HB > 8 w/ blood transfusion. Now 8.9. Possible EGD today Desmopressin given with MYRON and GI bleed S--Says feels stronger. Looks more alert. urine 1100 ml yesterday. renal function getting better. Labs better but still very bad. had lot of IVF and also PRBC. for EGD today. Now NPO Physical Exam Physical Exam: PHYSICAL EXAM: General: awake, alert, but weak HEENT--- mucous membranes very dry Neuro: AAO x 3, speech clear and appropriate Chest: Clear to auscultation, on room air, Cardiac: Regular rate and rhythm, no JVD, S1S2 grade I systolic Murmur no edema GI: Soft non tender : kaufman+ no CVA tenderness, draining light melissa urine Psych: Normal mood and affect Skin: small ecchymotic areas to bilateral arms Results & Data Vital Signs (Past 12 Hours) Vital Signs Temp Pulse Pulse Resp BP BP Pulse Ox 07/23/24 08:00 155/78 H 07/23/24 08:00 82 23 92 07/23/24 08:00 07/23/24 07:36 78 22 94 07/23/24 07:13 152/69 H 07/23/24 07:12 83 25 H 98 07/23/24 07:00 81 30 H 97 07/23/24 06:00 84 21 133/72 94 07/23/24 05:00 86 22 145/71 H 94 07/23/24 04:00 36.5 C 82 24 132/78 97 07/23/24 03:00 81 19 132/63 97 07/23/24 02:00 78 17 131/74 97 07/23/24 01:00 75 19 134/66 96 07/23/24 00:00 36.4 C L 75 21 116/97 97 07/22/24 23:00 76 21 133/93 98 07/22/24 22:00 73 25 H 118/62 99 Pulse Ox O2 Del Method O2 Del Method 07/23/24 08:00 07/23/24 08:00 07/23/24 08:00 94 Room Air 07/23/24 07:36 07/23/24 07:13 07/23/24 07:12 07/23/24 07:00 07/23/24 06:00 Room Air 07/23/24 05:00 Room Air 07/23/24 04:00 Room Air 07/23/24 03:00 Room Air 07/23/24 02:00 Room Air 07/23/24 01:00 Room Air 07/23/24 00:00 Room Air 07/22/24 23:00 Room Air 07/22/24 22:00 Room Air
--- NOTE | 2024-07-23 11:06 | GI REPORT ---
[facility] Patient: ROXANA AGARWAL : 1955 Sex at : Female Age: 68 Years Procedure: Upper GI endoscopy Date: 07/23/2024 Attending Physician: Luc Almonte MD Referring MD: Radhames Gonzalez Indications: - Anemia Medications: - Monitored Anesthesia Care Complications: - No immediate complications. Estimated Blood Loss: - Estimated blood loss: None. Procedure: - The egd scope was introduced through the mouth and advanced to the second part of the duodenum. - The upper GI endoscopy was accomplished with ease. - The patient tolerated the procedure well. Findings: - Small hiatal hernia otherwise normal exam Impression: - Small hiatal hernia otherwise normal exam - No specimens collected. Recommendation: - Follow H and H serially. ENT evaluation. Colonoscopy's when patient is agreeable. Procedure Code(s): - 28902, Esophagogastroduodenoscopy, flexible, transoral; diagnostic, including collection of specimen(s) by brushing or washing, when performed (separate procedure) CPT(R) - 2023 copyright [employer]. All Rights Reserved. The CPT codes, CCI edits and ICD codes generated are intended as suggestions and were generated based on input data. These codes are preliminary and upon monotype keyboard operator review may be revised to meet current compliance and payer requirements. The provider is responsible for the final determination of appropriate codes, and modifiers. Luc Almonte MD This document has been electronically signed. Note Initiated:07/23/2024 Note Completed:07/23/2024 11:06 AM [id number]
[2024-07-23] MEDS: BENZOCAINE/TETRACAIN/BUTAM 50 APPLN/5 GM CAN EXT ONE (11:46)
[2024-07-23] MEDS: KETAMINE HCL 10MG/ML SYR ONE (11:46)
[2024-07-23] MEDS: LIDOCAINE 2% 2 ML VIAL/AMP(20MG/ML) INFIL ONE (11:47)
[2024-07-23] MEDS: PROPOFOL IV EMULSION 10 MG/ML 20 ML VIAL IV ONE (11:47)
--- NOTE | 2024-07-23 12:49 | Anesthesiology Progress Note ---
Date of Service July 23, 2024 Anesthesia Post Procedure Vital Signs Vital Signs: Temp Pulse Pulse Pulse Resp BP BP 07/23/24 11:42 79 20 137/68 07/23/24 11:27 82 20 114/84 07/23/24 11:11 79 24 122/71 07/23/24 10:07 36.2 C L 90 16 149/68 H 07/23/24 10:02 07/23/24 09:36 86 27 H 07/23/24 09:32 143/62 H 07/23/24 09:21 88 22 07/23/24 09:00 157/71 H 07/23/24 09:00 89 24 07/23/24 08:30 84 22 07/23/24 08:00 155/78 H 07/23/24 08:00 155/78 H 07/23/24 08:00 82 23 07/23/24 08:00 07/23/24 07:36 78 22 07/23/24 07:13 152/69 H 07/23/24 07:12 83 25 H 07/23/24 07:00 81 30 H 07/23/24 06:00 84 21 133/72 07/23/24 05:00 86 22 145/71 H 07/23/24 04:00 36.5 C 82 24 132/78 07/23/24 03:00 81 19 132/63 07/23/24 02:00 78 17 131/74 07/23/24 01:00 75 19 134/66 07/23/24 00:00 36.4 C L 75 21 116/97 07/22/24 23:00 76 21 133/93 07/22/24 22:00 73 25 H 118/62 07/22/24 21:00 79 22 117/65 07/22/24 20:00 36.6 C 73 22 134/40 L 07/22/24 17:31 122/65 07/22/24 17:30 78 25 H 07/22/24 17:03 78 24 07/22/24 17:00 89/57 L 07/22/24 17:00 89/57 L 07/22/24 16:33 78 29 H 07/22/24 16:31 105/66 07/22/24 16:27 80 24 07/22/24 16:09 72 24 07/22/24 16:02 36.3 C L 135/62 07/22/24 16:00 07/22/24 15:39 78 24 07/22/24 15:30 105/61 07/22/24 15:06 85 26 H 07/22/24 15:00 94/59 L 07/22/24 15:00 94/59 L 07/22/24 15:00 77 24 07/22/24 14:36 82 25 H 07/22/24 14:31 104/66 07/22/24 14:03 87 28 H 07/22/24 14:00 111/65 07/22/24 14:00 85 30 H 07/22/24 13:51 93/69 L 07/22/24 13:27 92 H 31 H 07/22/24 13:00 97/55 L 07/22/24 13:00 93 H 24 Pulse Ox Pulse Ox O2 Del Method O2 Del Method 07/23/24 11:42 99 07/23/24 11:27 100 07/23/24 11:11 99 07/23/24 10:07 99 Room Air 07/23/24 10:02 Room Air 07/23/24 09:36 97 07/23/24 09:32 07/23/24 09:21 96 07/23/24 09:00 07/23/24 09:00 82 L 07/23/24 08:30 97 07/23/24 08:00 07/23/24 08:00 07/23/24 08:00 92 07/23/24 08:00 94 Room Air 07/23/24 07:36 94 07/23/24 07:13 07/23/24 07:12 98 07/23/24 07:00 97 07/23/24 06:00 94 Room Air 07/23/24 05:00 94 Room Air 07/23/24 04:00 97 Room Air 07/23/24 03:00 97 Room Air 07/23/24 02:00 97 Room Air 07/23/24 01:00 96 Room Air 07/23/24 00:00 97 Room Air 07/22/24 23:00 98 Room Air 07/22/24 22:00 99 Room Air 07/22/24 21:00 100 Room Air 07/22/24 20:00 99 Room Air 07/22/24 17:31 07/22/24 17:30 97 07/22/24 17:03 95 07/22/24 17:00 07/22/24 17:00 07/22/24 16:33 97 07/22/24 16:31 07/22/24 16:27 93 07/22/24 16:09 96 07/22/24 16:02 07/22/24 16:00 98 07/22/24 15:39 97 07/22/24 15:30 07/22/24 15:06 96 07/22/24 15:00 07/22/24 15:00 07/22/24 15:00 96 07/22/24 14:36 96 07/22/24 14:31 07/22/24 14:03 95 07/22/24 14:00 07/22/24 14:00 96 07/22/24 13:51 07/22/24 13:27 95 07/22/24 13:00 07/22/24 13:00 92 Pain Intensity Abdomen: Pain Intensity: 0 Transfer of Care Handoff Completed per policy Notes Mental Status: alert / awake / arousable Patient Amnestic to Procedure: Yes Nausea / Vomiting: adequately controlled Pain: adequately controlled Airway Patency, RR, SpO2: stable & adequate BP & HR: stable & adequate Hydration State: stable & adequate Anesthetic Complications: no major complications apparent and Pt Satisfied with anesthetic care
--- NOTE | 2024-07-23 14:06 | Hospitalist Progress Note ---
Date of Service July 23, 2024 Assessment & Plan Admission and Anticipated Discharge Date Admission Date: July 20, 2024 Subjective Assessment & Plan (1) Acute renal failure: -2/ Severe volume depletion/ GI bleed. MYRON from Severe Vol Depletion/Low BP in the setting of Acute GI bleed. Labs starting to get better. Creat down a lot but still very high at 6+ and BUN >90. Urine output is picking up nicely. had 1275 ml yesterday It appears she does not need dialysis at this time. K is normal today. Stop IVf once NPO is removed. Already 13 liters +ve so we do have to be careful. No more iv fluid. If needed can give lasix. Also Maintain hgb > 8 for better renal recovery. Keep Good BP. Now is good and No pressors for > 24 hrs Check renal panel and CBC daily Anemia -- sec to GI bleed + MYRON makes it worse. keep HB > 8 w/ blood transfusion. Now 8.9. Possible EGD today Desmopressin given with MYRON and GI bleed S--Says feels stronger. Looks more alert. urine 1100 ml yesterday. renal function getting better. Labs better but still very bad. had lot of IVF and also PRBC. for EGD today. Now NPO Physical Exam Physical Exam: PHYSICAL EXAM: General: awake, alert, but weak HEENT--- mucous membranes very dry Neuro: AAO x 3, speech clear and appropriate Chest: Clear to auscultation, on room air, Cardiac: Regular rate and rhythm, no JVD, S1S2 grade I systolic Murmur no edema GI: Soft non tender : kaufman+ no CVA tenderness, draining light melissa urine Psych: Normal mood and affect Skin: small ecchymotic areas to bilateral arms Results & Data Results & Data Vital Signs (Past 12 Hours) Vital Signs Temp Pulse Pulse Pulse Resp BP BP 07/23/24 13:01 173/83 H 07/23/24 13:01 173/83 H 07/23/24 13:01 173/83 H 07/23/24 13:00 84 24 07/23/24 12:49 160/68 H 07/23/24 12:42 75 20 07/23/24 12:30 73 18 07/23/24 12:18 79 28 H 173/83 H 07/23/24 11:42 79 20 137/68 07/23/24 11:27 82 20 114/84 07/23/24 11:11 79 24 122/71 07/23/24 10:07 36.2 C L 90 16 149/68 H 07/23/24 10:02 07/23/24 09:36 86 27 H 07/23/24 09:32 143/62 H 07/23/24 09:21 88 22 07/23/24 09:00 157/71 H 07/23/24 09:00 89 24 07/23/24 08:30 84 22 07/23/24 08:00 155/78 H 07/23/24 08:00 155/78 H 07/23/24 08:00 82 23 07/23/24 08:00 07/23/24 07:36 78 22 07/23/24 07:13 152/69 H 07/23/24 07:12 83 25 H 07/23/24 07:00 81 30 H 07/23/24 06:00 84 21 133/72 07/23/24 05:00 86 22 145/71 H 07/23/24 04:00 36.5 C 82 24 132/78 07/23/24 03:00 81 19 132/63 Pulse Ox Pulse Ox O2 Del Method O2 Del Method 07/23/24 13:01 07/23/24 13:01 07/23/24 13:01 07/23/24 13:00 07/23/24 12:49 07/23/24 12:42 07/23/24 12:30 07/23/24 12:18 07/23/24 11:42 99 07/23/24 11:27 100 07/23/24 11:11 99 07/23/24 10:07 99 Room Air 07/23/24 10:02 Room Air 07/23/24 09:36 97 07/23/24 09:32 07/23/24 09:21 96 07/23/24 09:00 07/23/24 09:00 82 L 07/23/24 08:30 97 07/23/24 08:00 07/23/24 08:00 07/23/24 08:00 92 07/23/24 08:00 94 Room Air 07/23/24 07:36 94 07/23/24 07:13 07/23/24 07:12 98 07/23/24 07:00 97 07/23/24 06:00 94 Room Air 07/23/24 05:00 94 Room Air 07/23/24 04:00 97 Room Air 07/23/24 03:00 97 Room Air
[2024-07-23] MEDS: PANTOprazole 40 MG/10 ML SYR IV SCH (20:24)
[2024-07-24 06:40] LABS: Basophils # (auto) 0.03 K/uL (0.00-0.20); Basophils % (auto) 0.2 %; Hematocrit (blood only) 27.9 % (37.0-47.0); Hemoglobin 9.8 g/dl (12.0-16.0); Immature Granulocytes # (auto) 0.37 K/uL (0.01-0.20); Immature Granulocytes % (auto) 2.5 %; Lymphocytes # (auto) 1.52 K/uL (1.20-3.40); Lymphocytes % (auto) 10.2 %; Mean Corpuscular Hemoglobin 30.8 pg (25.0-34.0); Mean Corpuscular Hgb Conc 35.1 g/dL (32.0-36.0); Mean Corpuscular Volume 87.7 fL (80.0-100.0); Mean Platelet Volume 11.8 fL (9.4-12.4); Monocytes # (auto) 0.82 K/uL (0.11-0.59); Monocytes % (auto) 5.5 %; Neutrophils # (auto) 12.09 K/uL (1.40-6.50); Neutrophils % (auto) 81.6 %; Nucleated RBC # (auto) 0.05 K/uL (0.00-0.12); Nucleated RBC % (auto) 0.3 %; Platelet Count 257 K/uL (130-400); RDW Coefficient of Variation 14.7 % (11.5-14.5); RDW Standard Deviation 47.7 fL (36.4-46.3); Red Blood Count 3.18 M/uL (4.20-5.40); White Blood Count 14.83 K/ul (4.8-10.8)
[2024-07-24 06:58] LABS: Albumin Globulin Ratio 1.2 (0.9-2); Albumin Level 3.1 gm/dl (3.4-5.0); BUN Creatinine Ratio 19.7 (10-20); Bilirubin,Total 0.3 mg/dl (0.2-1.0); Creatinine Clr Calc Pharmacy 10.5 ml/min; Globulin 2.6 gm/dl (2.5-4.0); Potassium 3.7 mmol/L (3.5-5.1); Total Protein 5.7 gm/dl (6.0-8.3)
--- NOTE | 2024-07-24 12:48 | Nephrology Progress Note ---
Date of Service July 24, 2024 Assessment & Plan (1) Acute renal failure: Plan: -Patient with ischemic ATN due to GI bleed patient is status post blood transfusion. Creatinine peaked at 18but downtrending to 4.8 today. Electrolytes are stable and no indication for dialysis. Patient is euvolemic. - hemoglobin of 9.8 today. Continue monitor and transfuse as needed. keep HB > 7 w/ blood transfusion (2) Kidney stones: Plan: Patient will need outpatient Nephrology follow-up for stone prevention Admission and Anticipated Discharge Date Admission Date: July 20, 2024 Subjective Seen for acute kidney injury in setting of GI bleed. She had melena stools today. No shortness of breath or leg swelling. Creatinine downtrending to 4.8. Review of Systems 2 Review of Systems: All other systems were reviewed and negative except as noted in HPI Physical Exam 2 Physical Exam: General exam: Appears comfortable, no acute distress HEENT: Pupils are equal and reactive to light Neck: No JVD, neck is supple trachea is midline Respiratory system: Clear breath sounds bilaterally. Gastrointestinal: Abdomen is soft, non distended, non tender, bowel sounds are present CVS: Regular rate and rhythm. No murmurs, rubs or gallops Musculoskeletal: No joint or muscle tenderness Extremities: Non tender, no edema, peripheral pulses are present Neuro: Oriented, no tremors, no focal neurological deficits Skin: No rashes Results & Data Vital Signs (Past 12 Hours) Vital Signs Temp Pulse Pulse Resp BP Pulse Ox Pulse Ox 07/24/24 11:16 36.7 C 92 H 18 157/83 H 97 07/24/24 11:13 98 07/24/24 08:07 98 H 07/24/24 07:27 36.8 C 89 18 164/82 H 95 07/24/24 02:35 36.6 C 99 H 20 171/84 H 96 O2 Del Method O2 Flow Rate 07/24/24 11:16 Room Air 07/24/24 11:13 0 07/24/24 08:07 07/24/24 07:27 Room Air 07/24/24 02:35 Room Air Laboratory Results 07/24/24 05:57 07/24/24 05:57 WBC 14.83 H RBC 3.18 L MCV 87.7 MCH 30.8 MCHC 35.1 RDW Std Deviation 47.7 H RDW Coeff of Jolene 14.7 H Plt Count 257 MPV 11.8 Albumin 3.1 L
--- NOTE | 2024-07-24 16:22 | Hospitalist Progress Note ---
Date of Service July 24, 2024 Assessment & Plan (1) Metabolic encephalopathy: (2) High anion gap metabolic acidosis: (3) Acute renal failure: (4) Shock circulatory: (5) Acute GI bleeding: Plan per previous hospitalist notes with addendum: This is a Critically Ill 68-year-old female who has a significant past medical history of HTN, HLD, GERD, CKD stage IIIb, tobacco use disorder and depression who presents to ED with concerns of dark tarry stool. Pt reports dark tarry stool for approx 2-3 weeks. Pt anemic and in renal failure, Cr 18 Acute Metabolic Encephalopathy High anion gap metabolic acidosis Acute Renal failure superimposed on CKD Acute blood loss anemia 2/2 GIB Shock - likely in setting of hemorrhagic and hypovolemia, can't rule out sepsis --CT head negative Admitted to ICU for critical care Consent for blood transfusion obtained - 2 units of pRBC on admission vasopressor support - Phenylephrine per ICU - now stopped and started midodrine, hydrocortisone Empiric IV rocephin until sepsis ruled out, CXR negative, UA + 1 bacteruria Baseline Cr 1.6-2, last done on 07/02 was 2.0 ( she did receive IV contrast on 06/25, Cr was 1.9 on that day) Nephrology consulted on admission and pt was started on bicarb drip. Now off bicarb drip, on plasmalyte, pt making good amount of urine. Nephrology following closely. 07/23 s/p EGD: - Small hiatal hernia otherwise normal exam - No specimens collected. 07/24 Hg stable advance diet Protonix BID Plavix held continue to monitor closely crea continues to improve Nephro on board Suspected GIB Acute blood loss anemia also hx of epistaxis hgb 06/2023 12.6, 07/02 was 9.2 pt reports dark stool x 2-3 weeks, no prior hx of endoscopy Pt started on plavix 3 days ago due to outpt w/u regarding CVA and identified to have severe carotid artery stenosis Started on PPI bolus/gtt, cont. GI consulted - plan for EGD/ colonoscopy tmrw Monitor H&H 07/24 management per above Elevated troponin suspect Type II ME in setting of demand due to shock, will trend and get echo HTN: chronic, hold lisinopril given MYRON/hypotension Carotid artery stenosis: outpt CTA of neck revealed 70 to 90% stenosis of the right ICA and 50 to 70% of the left ICA. She has been referred to vascular and this is why plavix was initiated DVT PPX: SCDS FULL CODE PCP: Lorenza Muñoz Dispo: ICU Admission and Anticipated Discharge Date Admission Date: July 20, 2024 Subjective ff up for acute blood loss anemia, etc seen resting in bed, comfortable states she feels fine overall tolerating soft diet no abdominal pain, nausea no loida melena/hematochezia no chest pain, dyspnea, palpitations, dizziness no other symptoms Review of Systems Review of Systems: all noted and negative except for above Physical Exam Physical Exam: General- oriented x 3, not in distress, speaks in sentences with no effort or accessory muscle use Eyes- anicteric Neck- no JVD Lungs- clear breath sounds bilaterally, no rales/wheezes Heart- normal rate, regular rhythm; no murmurs Abdomen- normal bowel sounds, nondistended, soft, nontender Extremities- no pretibial edema, no calf tenderness Neuro- alert, oriented x 3; no gross focal neurologic deficits Skin- warm & dry Results & Data Results & Data Vital Signs (Past 12 Hours) Vital Signs Temp Pulse Pulse Resp BP Pulse Ox Pulse Ox 07/24/24 15:37 36.8 C 83 18 160/94 H 95 07/24/24 14:58 90 07/24/24 11:16 36.7 C 92 H 18 157/83 H 97 07/24/24 11:13 98 07/24/24 08:30 07/24/24 08:07 98 H 07/24/24 07:27 36.8 C 89 18 164/82 H 95 O2 Del Method O2 Flow Rate 07/24/24 15:37 Room Air 07/24/24 14:58 07/24/24 11:16 Room Air 07/24/24 11:13 0 07/24/24 08:30 Room Air 07/24/24 08:07 07/24/24 07:27 Room Air all noted and reviewed including below
[2024-07-25 06:14] LABS: Basophils # (auto) 0.06 K/uL (0.00-0.20); Basophils % (auto) 0.3 %; Eosinophils # (auto) 0.24 K/uL (0.00-0.50); Eosinophils % (auto) 1.4 %; Hematocrit (blood only) 28.6 % (37.0-47.0); Hemoglobin 9.9 g/dl (12.0-16.0); Immature Granulocytes # (auto) 0.62 K/uL (0.01-0.20); Immature Granulocytes % (auto) 3.6 %; Lymphocytes # (auto) 3.93 K/uL (1.20-3.40); Lymphocytes % (auto) 22.7 %; Mean Corpuscular Hemoglobin 30.5 pg (25.0-34.0); Mean Corpuscular Hgb Conc 34.6 g/dL (32.0-36.0); Mean Platelet Volume 11.1 fL (9.4-12.4); Monocytes # (auto) 1.47 K/uL (0.11-0.59); Monocytes % (auto) 8.5 %; Neutrophils # (auto) 11.01 K/uL (1.40-6.50); Neutrophils % (auto) 63.5 %; Nucleated RBC # (auto) 0.05 K/uL (0.00-0.12); Nucleated RBC % (auto) 0.3 %; Platelet Count 279 K/uL (130-400); RDW Standard Deviation 48.3 fL (36.4-46.3); Red Blood Count 3.25 M/uL (4.20-5.40); White Blood Count 17.33 K/ul (4.8-10.8)
[2024-07-25 06:27] LABS: Albumin Globulin Ratio 1.2 (0.9-2); Albumin Level 3.1 gm/dl (3.4-5.0); BUN Creatinine Ratio 21.5 (10-20); Bilirubin,Total 0.4 mg/dl (0.2-1.0); Calcium 7.9 mg/dl (8.6-10.3); Creatinine Clr Calc Pharmacy 12.9 ml/min; Globulin 2.5 gm/dl (2.5-4.0); Potassium 3.9 mmol/L (3.5-5.1); Total Protein 5.6 gm/dl (6.0-8.3)
--- NOTE | 2024-07-25 14:02 | Nephrology Progress Note ---
Date of Service July 25, 2024 Assessment & Plan (1) Acute renal failure: Plan: -Patient with ischemic ATN due to GI bleed patient is status post blood transfusion. Creatinine peaked at 18 but downtrending to 4 today. Electrolytes are stable and no indication for dialysis. Patient is euvolemic. - hemoglobin of 9.9 today. Continue monitor and transfuse as needed. keep HB > 7 w/ blood transfusion - From renal standpoint patient can be discharged to follow-up with Nephrology in 1-2 weeks. [facility] Sunday (2) Kidney stones: Plan: Patient will need outpatient Nephrology follow-up for stone prevention Admission and Anticipated Discharge Date Admission Date: July 20, 2024 Subjective seen for acute kidney injury. She feels better today. She is making urine and creatinine downtrending to 4 today. Review of Systems 2 Review of Systems: All other systems were reviewed and negative except as noted in HPI Physical Exam 2 Physical Exam: General exam: Appears comfortable, no acute distress HEENT: Pupils are equal and reactive to light Neck: No JVD, neck is supple trachea is midline Respiratory system: Clear breath sounds bilaterally. Gastrointestinal: Abdomen is soft, non distended, non tender, bowel sounds are present CVS: Regular rate and rhythm. No murmurs, rubs or gallops Musculoskeletal: No joint or muscle tenderness Extremities: Non tender, no edema, peripheral pulses are present Neuro: Oriented, no tremors, no focal neurological deficits Skin: No rashes Results & Data Vital Signs (Past 12 Hours) Vital Signs Temp Pulse Resp BP Pulse Ox O2 Del Method 07/25/24 11:44 36.9 C 92 H 18 100/66 95 Room Air 07/25/24 08:00 Room Air 07/25/24 07:47 36.2 C L 96 H 18 132/82 95 Room Air 07/25/24 03:33 36.4 C L 92 H 19 108/57 L 93 Room Air Laboratory Results 07/25/24 05:54 07/25/24 05:54 WBC 17.33 H RBC 3.25 L MCV 88.0 MCH 30.5 MCHC 34.6 RDW Std Deviation 48.3 H RDW Coeff of Jolene 15.0 H Plt Count 279 MPV 11.1 Albumin 3.1 L
--- NOTE | 2024-07-25 14:53 | Hospitalist Progress Note ---
Date of Service July 25, 2024 Assessment & Plan (1) Metabolic encephalopathy: (2) High anion gap metabolic acidosis: (3) Acute renal failure: (4) Shock circulatory: (5) Acute GI bleeding: Plan per previous hospitalist notes with addendum: This is a Critically Ill 68-year-old female who has a significant past medical history of HTN, HLD, GERD, CKD stage IIIb, tobacco use disorder and depression who presents to ED with concerns of dark tarry stool. Pt reports dark tarry stool for approx 2-3 weeks. Pt anemic and in renal failure, Cr 18 Acute Metabolic Encephalopathy High anion gap metabolic acidosis Acute Renal failure superimposed on CKD Acute blood loss anemia 2/2 GIB Shock - likely in setting of hemorrhagic and hypovolemia, can't rule out sepsis --CT head negative Admitted to ICU for critical care Consent for blood transfusion obtained - 2 units of pRBC on admission vasopressor support - Phenylephrine per ICU - now stopped and started midodrine, hydrocortisone Empiric IV rocephin until sepsis ruled out, CXR negative, UA + 1 bacteruria Baseline Cr 1.6-2, last done on 07/02 was 2.0 ( she did receive IV contrast on 06/25, Cr was 1.9 on that day) Nephrology consulted on admission and pt was started on bicarb drip. Now off bicarb drip, on plasmalyte, pt making good amount of urine. Nephrology following closely. 07/23 s/p EGD: - Small hiatal hernia otherwise normal exam - No specimens collected. 07/24 Hg stable advance diet Protonix BID Plavix held continue to monitor closely crea continues to improve Nephro on board 07/25 Hg remains stable Tolerating diet well Discharge plan: hold Plavix will arrange for colonoscopy as an outpatient, soon as possible Continue Protonix daily Follow-up with GI in 1 to 2 weeks Suspected GIB Acute blood loss anemia also hx of epistaxis hgb 06/2023 12.6, 07/02 was 9.2 pt reports dark stool x 2-3 weeks, no prior hx of endoscopy Pt started on plavix 3 days ago due to outpt w/u regarding CVA and identified to have severe carotid artery stenosis Started on PPI bolus/gtt, cont. GI consulted - plan for EGD/ colonoscopy tmrw Monitor H&H 07/25 management per above Elevated troponin suspect Type II DC in setting of demand due to shock, will trend and get echo Echo: Moderate concentric LVH Left ventricular ejection fraction more than 70% No regional wall motion abnormalities Severe aortic stenosis is suggested by Doppler interrogation however the severity of the aortic stenosis may be overestimated due to the hyperdynamic le ft ventricular systolic function in the setting of severe noncardiac illness with patient presenting with severe anemia and acute kidney injury. Recommend repeat study after acute illness resolved. Mild pulmonary hypertension is present Grade 1 diastolic dysfunction HTN: chronic, hold lisinopril given MYRON/hypotension Monitor blood pressure closely Carotid artery stenosis: outpt CTA of neck revealed 70 to 90% stenosis of the right ICA and 50 to 70% of the left ICA. She has been referred to vascular and this is why plavix was initiated Plavix currently held in light of anemia with hypotension Resume once cleared by GI DVT PPX: SCDS FULL CODE PCP: Lorenza Muñoz Dispo: d/c home ff up with PCP in 1 week ff up with GI in 1 week Admission and Anticipated Discharge Date Admission Date: July 20, 2024 Subjective ff up for acute blood loss anemia, etc seen resting in bed, comfortable States she feels much better overall Denies abdominal pain, nausea vomiting, melena or hematochezia No chest pain, shortness of breath, palpitations, dizziness No other new symptoms Review of Systems Review of Systems: all noted and negative except for above Physical Exam Physical Exam: General- oriented x 3, not in distress, speaks in sentences with no effort or accessory muscle use Eyes- anicteric Neck- no JVD Lungs- clear breath sounds bilaterally, no crackles/wheezing Heart- normal rate, regular rhythm; no murmurs Abdomen- normal bowel sounds, nondistended, soft, nontender Extremities- no pretibial edema, no calf tenderness Neuro- alert, oriented x 3; no gross focal neurologic deficits Skin- warm & dry Results & Data Results & Data Vital Signs (Past 12 Hours) Vital Signs Temp Pulse Resp BP Pulse Ox O2 Del Method 07/25/24 11:44 36.9 C 92 H 18 100/66 95 Room Air 07/25/24 08:00 Room Air 07/25/24 07:47 36.2 C L 96 H 18 132/82 95 Room Air 07/25/24 03:33 36.4 C L 92 H 19 108/57 L 93 Room Air all noted and reviewed including below
== END 2024-07-25 17:06 | disposition home or self-care (01) | DRG 871 ==
LOC: ED 13:28 → SUATTDRO 16:17 → 1E 16:17 → 2E 07-23 15:04